=== PATIENT | male | born 1935 | race Caucasian/White ===

== ENCOUNTER 2020-03-13 17:08 | Inpatient (IN) | payer MEDICARE, OTHER, SELFPAY ==
[2020-03-13] VITALS (23 sets, daily range): BP systolic 84–122; BP diastolic 51–64; PULSE 77–96; RESP 16–28; TEMP 35.9; O2SAT 92–100
--- NOTE | ~2020-03-13 | XR_ITS ---
EXAMINATION: XR abdomen obstructive series DATE: 03/16/2020 07:16 INDICATION: Ileus TECHNIQUE: Frontal supine and upright views of the abdomen were obtained. COMPARISON: 03/15/2020 FINDINGS: There is residual oral contrast material scattered throughout the colon extending to the rectum as we ll as within a few loops of distal ileum. There are few additional gas-filled loops of borderline dil ated small bowel in the central abdomen. No free intraperitoneal gas. Cholelithiasis. Elevation of th e right hemidiaphragm. Opacities in the left mid and lower lung zones concerning for pneumonia. Cardi omegaly. Median sternotomy wires and mediastinal surgical clips are seen, likely from prior coronary artery bypass grafting. IMPRESSION: 1. Persistent gas-filled, borderline dilated loops of small bowel the central abdomen consistent wit h persistent ileus. 2. Opacities in the left mid and lower lung zone concerning for pneumonia. 3. Cholelithiasis. 4. Cardiomegaly. Reviewed, dictated and finalized at location A. EO RETINAL SURGEON IMPRESSION: 1. Persistent gas-filled, borderline dilated loops of small bowel the central abdomen consistent with persistent ileus. 2. Opacities in the left mid and lower lung zone concerning for pneumonia. 3. Cholelithiasis. 4. Cardiomegaly.
--- NOTE | ~2020-03-13 | XR_ITS ---
EXAMINATION: XR chest 1V portable EXAM DATE: 03/15/2020 07:55 INDICATION: Shortness of breath. TECHNIQUE: Portable AP frontal chest x-ray was obtained. Comparison is made to prior examination from 03/14/2020. FINDINGS: There is moderate amount of left mid and lower lung zone acute airspace disease consistent with pneumonia. Small amount of right basilar airspace disease. No pneumothorax or pleural effusion. Cardiomediastinal silhouette is normal. Sternotomy wires are present without findings to suggest ster nal dehiscence. Disc does not extend beyond endplate margin. Feeding tube with a loop in the distal e sophagus, tip projects over left upper quadrant probably below the diaphragm level. IMPRESSION: 1. Moderate left basilar, small right pneumonia. Reviewed, dictated and finalized at location D. ARCH NEUROPSYCHOLOGIST
--- NOTE | ~2020-03-13 | XR_ITS ---
XR abdomen obstructive series DATE: 03/14/2020 12:47 INDICATION: Small bowel obstruction versus adynamic ileus secondary to pneumonia TECHNIQUE: Supine and upright AP views COMPARISON: 03/06/2020 KUB for NG tube placement FINDINGS: A nasogastric tube is present in the very proximal stomach.. Persistent small bowel dilatation is noted, with relative evacuation of the distal bowel raising conc vish for small bowel obstruction. Multiple calcified gallstones. Radiopaque bowel sutures overlie the right upper quadrant. Clips overlie the right lower quadrant and pelvis. There is patchy infiltrate in the left lower lung. Status post sternotomy. Degenerative changes of the thoracic and lumbar spine. Atherosclerotic calcifications of the abdominal aorta, renal, iliac and femoral arteries. IMPRESSION: NG tube in very proximal stomach Suspected small bowel obstruction Postoperative changes of the abdomen and pelvis Reviewed, dictated and finalized at Location A. Reviewed, dictated and finalized at location A. AR CARE TECHNICIAN
--- NOTE | ~2020-03-13 | XR_ITS ---
EXAMINATION: XR abdomen obstructive series EXAM DATE: 03/15/2020 07:55 INDICATION: Follow-up on possible small-bowel obstruction. TECHNIQUE: Frontal upright projection of the upper abdomen, frontal projection of the lower abdomen f or interpretation. Comparison is made to prior examination from 03/14/2020. FINDINGS: There is a loop, coiling of the distal aspect of the nasogastric tube at the gastroesophage al junction. The tip appears to be just below the gastroesophageal junction level. Potentially could be straightened out by retracting 20 cm and then re-advancing. Several loops of moderately distended air-filled small bowel, obstruction or ileus. There are gallsto andreia. There is right upper quadrant anastomosis material. Moderate left basilar airspace disease consi stent with pneumonia. Sternotomy wires. No evidence of free intraperitoneal gas. IMPRESSION: 1. Feeding tube with loop in distal esophagus tip probably below diaphragm level. See above. 2. Moderately distended small bowel loops, ileus versus obstruction. 3. Moderate left basilar pneumonia. Reviewed, dictated and finalized at location D. CANDY DIPPER IMPRESSION: 1. Feeding tube with loop in distal esophagus tip probably below diaphragm lev el. See above. 2. Moderately distended small bowel loops, ileus versus obstruction. 3. Moderate left basilar pneumonia.
--- NOTE | ~2020-03-13 | XR_ITS ---
XR chest 2V DATE: 03/14/2020 12:46 INDICATION: Productive cough, wheezing. TECHNIQUE: AP and lateral views COMPARISON: 12/18/2018 2 view chest 03/13/2020 CT abdomen pelvis FINDINGS: There is ed patchy infiltrate involving particularly the left mid and lower lung zones. Mil d infiltrate, atelectasis or scarring in the right mid and lower lung.. Findings suggest bilateral pn eumonia, left greater than right. No pleural effusion. No pulmonary vascular congestion. No pneumothorax. Status post sternotomy. Aortic calcification and mild tortuosity. NG tube in proximal intra-abdominal stomach following making a loop in a hiatal hernia. Status post lower anterior cervical spine surgical spine fusion. Postoperative change, right upper quadrant of abdomen. Calcified gallstones, right upper quadrant. IMPRESSION: Bilateral mid and lower lung infiltrates, much greater on the left, suggesting pneumonia Reviewed, dictated and finalized at location A. CCO SWEEPER
--- NOTE | ~2020-03-13 | CT_ITS ---
EXAMINATION: CT abdomen pelvis wo con DATE: 03/13/2020 18:52 INDICATION: Nausea, vomiting and diarrhea. TECHNIQUE: Computed tomography (CT) of the abdomen and pelvis was performed without intravenous contr ast. The dose-length product was 549.38 mGy-cm. Automated exposure control and iterative reconstructi on technique were employed. COMPARISON: CT dated 11/12/2017 FINDINGS: There is lingular and left lower lobe airspace disease, consistent with pneumonia. No signi ficant pleural or pericardial effusion. Heart size normal. There is fluid in the distal esophagus, co nsistent with reflux. The stomach and small bowel are dilated with air-fluid levels. The distal small bowel is relatively decompressed. There are surgical changes of right hemicolectomy with ileocolic a nastomosis. There are gallstones. There is atherosclerosis. There are multiple ventral hernias contai aston small bowel, although this does not appear to be site of obstruction. There is transition of bow el in the right lateral midabdomen. No free air or free fluid. The liver, spleen, pancreas, adrenal glands and kidneys are unremarkable. There are extensive renal a rterial calcifications. No lymphadenopathy. Moderate thoracic and lumbar spondylosis. Status post med skylar sternotomy for CABG. IMPRESSION: 1. Small bowel obstruction with likely transition in the lateral right mid abdomen, most likely due t o adhesions. 2: Multiple ventral hernias containing dilated small bowel, although this does not appear to be the site of obstruction. 3: Cholelithiasis. 4: Extensive atherosclerosis. Reviewed, dictated and finalized at location A. ANALYSIS SUPERVISOR IMPRESSION: 1. Small bowel obstruction with likely transition in the lateral right mid abdo men, most likely due to adhesions. 2: Multiple ventral hernias containing dilated small bowel, although this does not appear to be the site of obstruction. 3: Cholelithiasis. 4: Extensive atherosclerosis.
--- NOTE | ~2020-03-13 | XR_ITS ---
XR abdomen NG/feed tube insert INDICATION: Evaluate NG tube position. TECHNIQUE: Limited KUB perform for evaluating NG tube . COMPARISON: CT dated 03/13/2020 FINDINGS: NG tube tip in the stomach. There are dilated small bowel loops in the upper abdomen, likel y due to obstruction..There is left lower lobe airspace disease, consistent with pneumonia. IMPRESSION: 1: NG tube tip in the stomach. 2: Left basilar airspace consolidation, consistent with pneumonia. Reviewed, dictated and finalized at location A. WALKER
--- NOTE | ~2020-03-13 | XR_ITS ---
XR sm bowel follow through WS DATE: 03/15/2020 11:38 INDICATION: Nausea and vomiting, small bowel dilatation TECHNIQUE: Serial images of the abdomen were obtained after administration of 500 cc Omnipaque 350 co ntrast material through existing NG tube 8 images COMPARISON: 03/05/2020 obstructive series FINDINGS: Status post partial right colectomy at the hepatic flexure area. Contrast material reaches the colon within 90 minutes. There is mild jejunal dilatation without apparent obstruction. The more distal small bowel is of normal caliber. IMPRESSION: Mild jejunal dilatation, possibly secondary to adynamic ileus; no bowel obstruction is ev ident Status post partial right colectomy Cholelithiasis Reviewed, dictated and finalized at Location A. Reviewed, dictated and finalized at location A. AL SERVICES MANAGER IMPRESSION: Mild jejunal dilatation, possibly secondary to adynamic ileus; no b owel obstruction is evident Status post partial right colectomy Cholelithiasis
--- NOTE | 2020-03-13 17:37 | ECG_ITS ---
Measurements Intervals [place] Rate: 80 P: [place]: 0 QRS: -64 QRSD: 146 T: 27 QT: 407 QTc: 472 Interpretive Statements ECTOPIC ATRIAL RHYTHM VENTRICULAR PREMATURE COMPLEX RIGHT BUNDLE BRANCH BLOCK LEFT ANTERIOR FASCICULAR BLOCK ABNORMAL ECG Electronically Signed On 03-14-2020 7:28:19 UPHOLSTERY DEPARTMENT SUPERVISOR by Ramón Mckinney D.O.
[2020-03-13 17:44] LABS: Add Urine Microscopic? YES; Appearance Urine Clear (Clear); Bilirubin Urine Negative (Negative); Blood Urine Negative (Negative); Color Urine Amber (Yellow); Glucose Urine UA Negative (Negative); Hyaline Casts Urine 50+ /lpf; Ketones Urine Negative (Negative); Leukocyte Esterase Ur Negative LEU/UL (Negative); Mucus Urine Rare /lpf; Nitrate Urine Negative (Negative); Protein Urine 2+ mg/dL (Negative); RBC Urine 0-2 /hpf (0-2); Specific Grav Ur 1.018 (1.001-1.035); Squamous Epithelial Cell Urine Occasional /hpf (Few); WBC Urine 0-3 /hpf
[2020-03-13 17:48] LABS: Basophils Absolute Auto 0.1 K/mm3 (0.0-0.1); Basophils Percent Auto 0.4 % (0.2-1.2); Eosinophils Absolute Auto 0.1 K/mm3 (0-0.3); Eosinophils Percent Auto 0.9 % (0-4.4); Hematocrit 43.7 % (42.0-52.0); Hemoglobin 15.3 g/dL (14.0-18.0); Immature Granulocyte Absolute 0.04 K/mm3 (0.00-0.031); Immature Granulocyte Percent A 0.3 % (0-0.5); Lymphocytes Absolute Auto 0.33 K/mm3 (0.9-3.2); Lymphocytes Percent Auto 2.7 % (18.3-44.2); Mean Corpuscular Volume 82.9 fl (80-100); Mean Platelet Volume 11.4 fl (7.4-10.4); Monocytes Absolute Auto 1.4 K/mm3 (0.1-0.6); Monocytes Percent Auto 11.2 % (2.6-8.5); Neutrophils Absolute Auto 10.4 K/mm3 (1.3-6.7); Neutrophils Percent Auto 84.5 % (45.5-73.1); Platelet Count Result 223 k/mm3 (150-375); Red Blood Count 5.27 M/mm3 (4.6-6.20); Red Cell Distribution Width 14.9 % (11.5-14.5); White Blood Count 12.3 K/mm3 (4.5-10.0)
[2020-03-13 17:59] LABS: Alanine Aminotransferase 18 U/L (4-50); Albumin Level 3.8 g/dL (3.5-5.1); Alkaline Phosphatase 76 U/L (38-126); Anion Gap 15 mmol/L (8-16); Aspartate Amino Transferase 25 U/L (17-59); Bilirubin,Total 0.7 mg/dL (0.2-1.3); Blood Urea Nitrogen 68 mg/dL (9-20); Calcium 8.4 mg/dL (8.4-10.2); Carbon Dioxide 32 mmol/L (22-30); Chloride 90 mmol/L (98-107); Estimated CRCL calculation 11 ml/min; Estimated Glomerular Filt Rate 14; Glucose 307 mg/dL (75-110); Lipase 23 U/L (23-300); Potassium 4.8 mmol/L (3.4-5.0); Sodium 137 mmol/L (137-145)
--- NOTE | 2020-03-13 18:29 | ED.WEAKNESS ---
HPI - Weakness General Chief complaint: Weakness Stated complaint: vomiting/weakness/diarrhea Time Seen by Provider: 03/13/20 18:28 History of Present Illness HPI Narrative: 84 yo male w/ h/o DM, HTN, CABG presents to the ED for weakness. He was reportedly awake all last night vomiting. His son nted that his abdomen was distended and he may have had a ventral hernia protruding at one point. This morning when he tried to get out of bed he was too weakn to stand. He says that he no longer feels nauseated or has any pain. He is unsure about previous surgeries. Related Data Home Medications Medication Instructions Recorded Confirmed amitriptyline 50 mg PO HS 03/13/20 aspirin [Aspir-81] 81 mg PO DAILY 03/13/20 calcium polycarbophil [FiberCon] 1,250 mg PO DAILY 03/13/20 docusate sodium [Colace] 100 mg PO BID 03/13/20 folic acid 1 mg PO DAILY 03/13/20 furosemide [Lasix] 20 mg PO DAILY 03/13/20 glucos sul [id number]-Mn 1 cap PO DAILY 03/13/20 [Glucosamine Chondroitin] lisinopril 20 mg PO DAILY 03/13/20 meclizine 25 mg PO DAILY 03/13/20 metoprolol succinate 25 mg PO DAILY 03/13/20 multivit-iron fwa-HE-N2-lycop 1 ea PO DAILY 03/13/20 [Multi For Him] pantoprazole [Protonix] 20 mg PO QAM 03/13/20 primidone 50 mg PO BID 03/13/20 simvastatin 40 mg PO HS 03/13/20 sitagliptin [Januvia] 50 mg PO DAILY 03/13/20 Allergies Allergy/AdvReac Type Severity Reaction Status Date / Time No Known Allergies Allergy Unverified 11/08/16 19:17 Review of Systems Review of Systems: All systems reviewed & are unremarkable except as noted in HPI and below Constitutional: Constitutional: Denies fever(s) Cardiovascular: Cardiovascular: Denies chest pain Respiratory: Respiratory: Denies dyspnea Gastrointestinal: Gastrointestinal: Reports diarrhea, Reports nausea and Reports vomiting Genitourinary: Genitourinary: Denies dysuria Musculoskeletal: Musculoskeletal: Denies back pain Neurologic: Reports dizziness and Reports weakness [facility] Past Medical History Medical History (Updated 03/13/20 @ 23:39 by Marcio Maya MD) Diabetes HTN (hypertension) Surgical History Surgical History (Updated 03/13/20 @ 23:37 by Marcio Maya MD) Hx of CABG Social History Social History (Updated 03/13/20 @ 23:37 by Marcio Maya MD) Living arrangements: with family Exam Const: General: no acute distress, alert and ill appearing HENMT: Mouth: Yes dry mucous membranes Resp: Effort & Inspection: normal respiratory effort Auscultation: clear to auscultation bilaterally Cardio: Rate: regular rate Rhythm: regular rhythm GI: Inspection: non-distended GI Palp: Yes Soft to palpation and No Tenderness to palpation present (GI) Skin: General skin exam: pallor Neuro: General: patient oriented x3, moves all extremities, no focal motor deficits and CN's II-XI intact bilaterally Speech: normal speech Extrem: General: normal to inspection Course Vital Signs Vital signs: Vital Signs Temperature 35.9 C L 03/13/20 17:09 Pulse Rate 77 03/13/20 17:09 Respiratory Rate 16 03/13/20 17:09 Blood Pressure 103/52 L 03/13/20 17:09 Pulse Oximetry 94 03/13/20 17:09 Temperature 35.9 C L 03/13/20 17:09 Pulse Rate 79 03/13/20 22:24 Respiratory Rate 23 H 03/13/20 22:24 Blood Pressure 84/64 L 03/13/20 22:01 Pulse Oximetry 92 03/13/20 22:24 MDM - Weakness Differential Diagnosis Differential diagnosis: Likely sepsis, dehydration and other (SBO, hernia, gastroenteritis) Medical Records Attestation: I reviewed the patient's medical records. Lab Data Attestation: I reviewed the patient's lab results. Result diagrams: 03/13/20 17:41 03/13/20 17:41 Labs: Lab Results 03/13/20 03/13/20 03/13/20 Range/Units 17:34 17:41 17:41 WBC 12.3 H (4.5-10.0) K/mm3 RBC 5.27 (4.6-6.20) M/mm3 Hgb 15.3 (14.0-18.0) g/dL Hct 43.7 (42.0-52.0) % M
[2020-03-13] MEDS: LIDOCAINE HCL 2% VISC SOLN 15 ML UDC (20:04)
--- NOTE | 2020-03-13 20:49 | PM.IMHP ---
H&P: HPI History of Present Illness Date/Time: 03/13/20 20:49 Chief Complaint: Nausea, vomiting, abdominal distension Narrative: Mireya Mccullough is a 84 year old male with past medical history of colon cancer status post partial colectomy, hypertension, GERD, type 2 diabetes, CAD status post CABG presents to the ED with complaints of nausea vomiting. Patient started developing nausea vomiting yesterday. Last bowel was couple days ago. Patient states many years ago he had colon cancer and had a hemicolectomy. He stopped having screening colonoscopies after the age of 79 as per his primary care and GI provider. Patient states he has had a 30 lb weight loss in last 6 months unintentional, son bedside stated patient is eating very little nowadays. He denies fevers or night sweats or any other B symptoms. He does not ever recall having small-bowel obstruction in the past. He does have these ventral hernias which he states can bulge and improves after emesis. In the ED: CT abdomen pelvis showed small-bowel obstruction in the right mid abdomen most likely due to adhesions, dilated small bowel and ventral hernias which does not appear to be site of obstruction. NG tube was placed to suction with bilious output. Surgery Dr. Ramsey Navarro will see patient in consultation. Patient admitted for small-bowel obstruction likely secondary to adhesions in the setting of history of colon cancer. Patient will likely need more than 2 days hospitalization and possibly need surgery. Review of Systems Review of Systems: Narrative: Constitutional: No Fever, No Chills, No Night Sweats, No Fatigue, No Malaise. Endorses a 30 lb unintentional weight loss last 6 months. ENT/Mouth: No Hearing Changes, No Ear Pain, No Nasal Congestion, No Sinus Pain, No Hoarseness, No sore throat, No Rhinorrhea, No Swallowing Difficulty Eyes: No Eye Pain, No Redness, No Vision Changes Cardiovascular: No Chest Pain, No Palpitations, No Dyspnea on Exertion, No Orthopnea, No Claudication, No Edema Respiratory: No Cough, No Sputum, No Wheezing, No Shortness of Breath Gastrointestinal: No Diarrhea, No Constipation, No Heartburn, No Hematochezia, No Melena. Endorses nausea and vomiting and abdominal discomfort. Genitourinary: No Dysuria, No Urinary Frequency, No Hematuria, No Urinary Incontinence, No Urgency Musculoskeletal: No Arthralgias, No Myalgias, No Joint Swelling, No Joint Stiffness, No Back Pain Skin: No Skin Lesions, No Pruritis, No Hair Changes Neuro: No Weakness, No Numbness, No Paresthesias, No Loss of Consciousness, No Syncope, No Dizziness, No Headache Psych: No Anxiety/Panic, No Depression, No Insomnia Heme: No Bruising, No Bleeding Lymph: No Adenopathy Endocrine: No Polyuria, No Polydipsia, No Temperature Intolerance [facility] Past Medical History Medical History CAD (coronary artery disease) Colon cancer Congestive heart failure Diabetes GERD (gastroesophageal reflux disease) HTN (hypertension) Hyperlipidemia Ventral hernia Vertigo Surgical History Surgical History History of partial colectomy Hx of CABG Family History Family History Father Cancer Mother Diabetes mellitus Sibling Heart attack Cancer Social History Social History Years smoked: 2 Smoking status: Former smoker Alcohol intake: never Substance use: never Living arrangements: with family Gender identity (if verbalized by the patient): Male Spiritual care concerns: Yes Meds Home Medications and Allergies Home Medications Medication Instructions Recorded Confirmed Type amitriptyline 50 mg PO HS 03/13/20 03/14/20 History aspirin [Aspir-81] 81 mg PO DAILY 03/13/20 03/14/20 History calcium polycarbophil [FiberCon] 650 mg PO HS
--- NOTE | 2020-03-13 21:25 | PC.NURSE ---
pt orthostatic prior to admission. Dr. Maya informed. new order received.
[2020-03-13] MEDS: SODIUM CHLORIDE 0.9% IV 1,000 ML 999 ML (21:35)
[2020-03-13] MEDS: LACTATED RINGERS 1,000 ML 100 ML IV CONT (23:42)
[2020-03-14 00:15] VITALS: O2SAT 95
--- NOTE | 2020-03-14 00:22 | ADMGEN ---
This patient, Mireya Mccullough, was admitted to Medical Room 245-01 at 0005. Patient/family oriented to hospital policies and general routines including ID bracelet, bed and alarms, visiting hours, pain management, procedures, bathroom and other care routines, personal items, smoking policy, room service/diet, and visiting hours. Information on how to activate the Rapid Response Team has been discussed. Patient/Family are encouraged to report perceived risks to care and to ask questions if they do not understand what they are told or what they should do.
[2020-03-14 00:30] VITALS: BP 121/49; PULSE 87; RESP 18; TEMP 36.3; O2SAT 95
[2020-03-14 00:31] VITALS: BP 116/53; BMI 24.0
[2020-03-14 01:18] LABS: Glucose Point of Care 219 (65-105)
[2020-03-14] MEDS: LACTATED RINGERS 1,000 ML 100 ML IV CONT ×2 (01:40→13:23)
[2020-03-14 01:47] LABS: Hemoglobin A1C 7.7 % (<5.7)
[2020-03-14 05:44] VITALS: BP 134/60; PULSE 104; RESP 16; TEMP 36.1; O2SAT 96
[2020-03-14 06:01] LABS: Blood Urea Nitrogen 75 mg/dL (9-20); Carbon Dioxide 31 mmol/L (22-30); Estimated CRCL calculation 12 ml/min; Estimated Glomerular Filt Rate 16; Glucose 189 mg/dL (75-110); Magnesium 1.8 mg/dL (1.6-2.3); Potassium 4.3 mmol/L (3.4-5.0); Sodium 139 mmol/L (137-145)
[2020-03-14 06:11] LABS: Basophils Absolute Auto 0.1 K/mm3 (0.0-0.1); Basophils Percent Auto 0.5 % (0.2-1.2); Eosinophils Percent Auto 0.1 % (0-4.4); Hematocrit 40.7 % (42.0-52.0); Hemoglobin 14.3 g/dL (14.0-18.0); Immature Granulocyte Absolute 0.02 K/mm3 (0.00-0.031); Immature Granulocyte Percent A 0.2 % (0-0.5); Lymphocytes Absolute Auto 0.58 K/mm3 (0.9-3.2); Lymphocytes Percent Auto 6.3 % (18.3-44.2); Mean Corpuscular HGB Conc 35.1 g/dl (32-36); Mean Corpuscular Hemoglobin 29.1 pg (26-34); Mean Corpuscular Volume 82.7 fl (80-100); Mean Platelet Volume 12.2 fl (7.4-10.4); Monocytes Absolute Auto 1.3 K/mm3 (0.1-0.6); Monocytes Percent Auto 14.5 % (2.6-8.5); Neutrophils Absolute Auto 7.3 K/mm3 (1.3-6.7); Neutrophils Percent Auto 78.4 % (45.5-73.1); Platelet Count Result 212 k/mm3 (150-375); Red Blood Count 4.92 M/mm3 (4.6-6.20); Red Cell Distribution Width 14.8 % (11.5-14.5); White Blood Count 9.3 K/mm3 (4.5-10.0)
[2020-03-14 06:13] LABS: Anion Gap 12 mmol/L (8-16); Chloride 96 mmol/L (98-107)
[2020-03-14 06:43] LABS: Glucose Point of Care 189 (65-105)
[2020-03-14 08:25] LABS: Glucose Point of Care 164 (65-105)
[2020-03-14] MEDS: HEPARIN SODIUM 5,000 UNITS/ML VIAL 5000 UNITS SUB-Q ×2 (08:29→22:26)
--- NOTE | 2020-03-14 08:30 | PM.CNGS ---
Assessment and Plan Assessment and plan (1) SBO (small bowel obstruction): Onset Date: ~02/2020 Code(s): K56.609 - Unspecified intestinal obstruction, unspecified as to partial versus complete obstruction Status: Acute Assessment and Plan: Difficult to tell talking to the patient when this actually started. But he had increasing pain and vomiting last evening. Exam today shows improvement after placement of NG tube in keeping in mid p.o. for the last 12 hours. At this time will plan to use conservative management including NG decompression, bowel rest, and repeat serial x-ray studies to evaluate the bowel gas pattern. If doing well on 03/15/2020 I may decide to do a small-bowel follow-through using his NG tube. Later today will consider giving him 1 dose of milk a magnesia down the NG tube in clamping it for 2 hours. Patient has 2 hernias but they do not appear to be causing the obstruction by CT. If he comes to surgery will probably try to repair these primarily with some sutures as we closed the abdomen following exploration. (2) Acute on chronic kidney failure: Onset Date: Unknown Code(s): N17.9 - Acute kidney failure, unspecified; N18.9 - Chronic kidney disease, unspecified Status: Acute Assessment and Plan: Will follow this with serial labs. Hospitalists are getting primary care records to see if he has stage 4 chronic kidney disease with a typical baseline creatinine of about 3.5. (3) Diabetes: Onset Date: Unknown Code(s): E11.9 - Type 2 diabetes mellitus without complications Status: Acute Assessment and Plan: Hospitalist's or working with the patient to follow in control his blood sugars. (4) CAD (coronary artery disease): Onset Date: Unknown Code(s): I25.10 - Atherosclerotic heart disease of [place] coronary artery without angina pectoris Status: Acute Assessment and Plan: Patient vaguely remembers that his CABG was sometime in his late 50s. He has had no recent chest pain or problems. (5) Ventral hernia: Onset Date: Unknown Code(s): K43.9 - Ventral hernia without obstruction or gangrene Status: Acute Assessment and Plan: These are most likely longstanding as his colon surgery was done when he was in his 30s. They probably developed in the year two after that. He has gained and lost weight several times. He has never had a bowel obstruction he knows of. (6) Abnormal chest xray: Onset Date: Unknown Code(s): R93.89 - Abnormal findings on diagnostic imaging of other specified body structures Status: Acute Assessment and Plan: Patient not complain of any obvious pulmonary symptoms, however in view of the current state of the pandemic it is somewhat concerning that he has a infiltrate in the left long on chest x-ray. Currently not running a fever having any significant cough. History of Present Illness Consult details Consult date: 03/14/20 Reason for consult: abdominal pain (Including nausea and vomiting) Requesting physician: Rafaela Wang, Narrative: Mr. Mireya Mccullough is a 84 year old male with past medical history of colon cancer status post partial colectomy ( he thinks he was in his 30's when he had the Rt. colectomy), hypertension, GERD, type 2 diabetes, CAD status post CABG presented last night to the [place] ED with complaints of nausea and vomiting. Patient started developing nausea and vomiting on Saturday. Last bowel was couple days ago. Patient states many years ago he had colon cancer and had a hemicolectomy. He stopped having screening colonoscopies after the age of 79 as per his primary care and GI provider. Patient states he has had a 30 lb weight loss in last 6 months which has been unintentional. His son stated to Dr. Wang that the patient is eating very little nowadays. The patient denies fevers or night sweats or any other constitutional symptoms. H
[2020-03-14] MEDS: BISACODYL 10 MG SUPPOSITORY RECTAL (11:56)
[2020-03-14 12:48] LABS: Glucose Point of Care 187 (65-105)
[2020-03-14 14:00] VITALS: BP 133/76; PULSE 78; RESP 16; TEMP 36.2; O2SAT 97
--- NOTE | 2020-03-14 15:35 | PM.IMPN ---
Progress Note: A&P Assessment and Plan (1) SBO (small bowel obstruction): Code(s): K56.609 - Unspecified intestinal obstruction, unspecified as to partial versus complete obstruction Status: Acute Assessment and Plan: Likely secondary to adhesions with history of colectomy for colon cancer for abdominal surgeries. CT scan confirmed small-bowel obstruction. Patient not had a colonoscopy since before age of 79 because he was told not to have them anymore with his age. Family is concerned about colon cancer recurrence. It is unclear at this time, however CT scan suggested adhesions as opposed to a mass causing obstruction and this would be consistent with his history of colectomy. He may need a colonoscopy down the line with this history of colon cancer. General surgery has been consulted and input is appreciated continue NG tube decompression continue IV fluids considering small-bowel follow-through study tomorrow PT/OT has been ordered to allow patient to ambulate in order to move bowels continue NPO diet Chloraseptic spray for sore throat secondary to NG (2) Acute on chronic kidney failure: Code(s): N17.9 - Acute kidney failure, unspecified; N18.9 - Chronic kidney disease, unspecified Status: Acute Assessment and Plan: Creatinine 4.0 at presentation. Received records from PCP which showed creatinine 1.8 in December 2019, suggesting patient has CKD. Likely prerenal etiology secondary to dehydration in light of a nausea and vomiting. Creatinine is 3.7 today. electrolytes are stable. Continue IV fluid resuscitation with LR Monitor renal function closely and renally dose medications. Avoid nephrotoxins consider nephrology consultation if no improvement. (3) Abnormal chest xray: Code(s): R93.89 - Abnormal findings on diagnostic imaging of other specified body structures Status: Acute Assessment and Plan: Chest x-ray upon presentation showed patchy infiltrate involving the left mid and lower lung zones as well as mild infiltrate, or possibly atelectasis of the right mid and lower lung zone. Chest x-ray findings appear to be consistent with pneumonia, however patient has no respiratory symptoms, or other signs or symptoms to suggest underlying infection. His lungs are clear to auscultation. He is maintaining adequate oxygen saturation on room air. Do not suspect aspiration given location At this time, do not feel that antibiotics are warranted based on clinical picture will plan to repeat CXR tomorrow. If progression is demonstrated, will pursue further workup. Provide incentive spirometer (4) Hypotension: Code(s): I95.9 - Hypotension, unspecified Status: Acute Assessment and Plan: blood pressures as low as 84/64 upon arrival. in the setting of SBO and decreased p.o. intake, this is felt to be most likely secondary to hypovolemia. Blood pressures have stabilized. Most recent BP was 133/76. Continue IV fluids; LR at 100 mL/hr monitor blood pressures closely his antihypertensives are on hold( lisinopril, metoprolol, Lasix) (5) Diabetes: Code(s): E11.9 - Type 2 diabetes mellitus without complications Status: Acute Assessment and Plan: A1c is 7.7. Blood sugars generally well controlled. Continue accuchecks ACHS, SSI, and hypoglycemic protocol Oral hypoglycemics on hold (6) Ventral hernia: Code(s): K43.9 - Ventral hernia without obstruction or gangrene Status: Acute Assessment and Plan: Seen on physical exam and consistent with previous abdominal incision from prior surgery. On imaging ventral hernia appears to be separate from the small-bowel obstruction. No issues at this time. Additional Plan Diet: NPO DVT prophylaxis: Heparin Code status: Full code Disposition: Inpatient medical floor for small-bowel obstruction, pending clinical course patient may need rehab
[2020-03-14] MEDS: MAGNESIUM HYDROXIDE SUSP 30 ML UDC FEED TUBE (17:11)
[2020-03-14 18:33] LABS: Glucose Point of Care 168 (65-105)
--- NOTE | 2020-03-14 19:02 | PC.NURSE ---
PT arrived by bed and 2 staff at 1854.No distress noted. NG tube clamped until 1914.
[2020-03-15] VITALS (10 sets, daily range): BP systolic 126–182; BP diastolic 47–83; PULSE 72–106; RESP 18–20; TEMP 36.2–36.4; O2SAT 94–99
[2020-03-15 02:48] LABS: Glucose Point of Care 128 (65-105)
[2020-03-15] MEDS: LACTATED RINGERS 1,000 ML 100 ML IV CONT ×2 (05:46→12:00)
[2020-03-15] MEDS: hydrALAZINE HCL 20 MG/ML VIAL 10 MG IV PUSH ×2 (05:47→10:15)
[2020-03-15 05:59] LABS: Glucose Point of Care 121 (65-105)
[2020-03-15 06:20] LABS: Basophils Percent Auto 0.4 % (0.2-1.2); Eosinophils Absolute Auto 0.1 K/mm3 (0-0.3); Eosinophils Percent Auto 0.7 % (0-4.4); Hematocrit 40.8 % (42.0-52.0); Hemoglobin 13.8 g/dL (14.0-18.0); Immature Granulocyte Absolute 0.03 K/mm3 (0.00-0.031); Immature Granulocyte Percent A 0.4 % (0-0.5); Lymphocytes Absolute Auto 0.42 K/mm3 (0.9-3.2); Mean Corpuscular HGB Conc 33.8 g/dl (32-36); Mean Corpuscular Hemoglobin 28.5 pg (26-34); Mean Corpuscular Volume 84.1 fl (80-100); Mean Platelet Volume 12.1 fl (7.4-10.4); Monocytes Absolute Auto 1.1 K/mm3 (0.1-0.6); Neutrophils Absolute Auto 6.8 K/mm3 (1.3-6.7); Neutrophils Percent Auto 80.5 % (45.5-73.1); Platelet Count Result 208 k/mm3 (150-375); Red Blood Count 4.85 M/mm3 (4.6-6.20); Red Cell Distribution Width 14.9 % (11.5-14.5); White Blood Count 8.5 K/mm3 (4.5-10.0)
[2020-03-15 06:31] LABS: Lactic Acid Reflex 0.9 mmol/L (0.7-2.1)
[2020-03-15 06:39] LABS: Prealbumin 11.4 mg/dL (17.6-36.0)
[2020-03-15 06:43] LABS: Alanine Aminotransferase 16 U/L (4-50); Albumin Level 3.5 g/dL (3.5-5.1); Alkaline Phosphatase 68 U/L (38-126); Anion Gap 10 mmol/L (8-16); Aspartate Amino Transferase 40 U/L (17-59); Blood Urea Nitrogen 70 mg/dL (9-20); Calcium 8.1 mg/dL (8.4-10.2); Carbon Dioxide 32 mmol/L (22-30); Chloride 99 mmol/L (98-107); Estimated CRCL calculation 21 ml/min; Estimated Glomerular Filt Rate 30; Glucose 129 mg/dL (75-110); Potassium 4.1 mmol/L (3.4-5.0); Sodium 141 mmol/L (137-145)
[2020-03-15 07:01] LABS: Hypochromasia 1+ (NORMAL); Platelet Estimate Adequate (Adequate)
[2020-03-15 07:02] LABS: Poikilocytosis 1+ (NORMAL); Target Cells 1+ (NORMAL)
[2020-03-15 07:03] LABS: Carcinoembryonic Antigen 2.3 ng/mL (0.0-3.0)
[2020-03-15] MEDS: PANTOPRAZOLE SODIUM IV 40 MG VIAL IV PUSH (08:37)
[2020-03-15] MEDS: HEPARIN SODIUM 5,000 UNITS/ML VIAL 5000 UNITS SUB-Q ×2 (08:37→20:57)
[2020-03-15] MEDS: METOPROLOL TARTRATE INJ 5 MG/5 ML VIAL IV PUSH ×3 (08:39→20:57)
[2020-03-15 12:05] LABS: Glucose Point of Care 166 (65-105)
--- NOTE | 2020-03-15 12:10 | PM.IMPN ---
Progress Note: A&P Assessment and Plan (1) SBO (small bowel obstruction): Onset Date: ~02/2020 Code(s): K56.609 - Unspecified intestinal obstruction, unspecified as to partial versus complete obstruction Status: Acute Assessment and Plan: Likely secondary to adhesions with history of colectomy for colon cancer for abdominal surgeries. CT scan confirmed small-bowel obstruction. Patient has not had a colonoscopy since before age of 79 because he was told not to have them anymore with his age. Family is concerned about colon cancer recurrence. It is unclear at this time, however CT scan suggested adhesions as opposed to a mass causing obstruction and this would be consistent with his history of colectomy. He may need a colonoscopy down the line with this history of colon cancer. He is passing flatus and had 2 bowel movements. Small bowel follow-through showed mild jejunal dilatation, possibly related to adynamic ileus, without bowel obstruction. General surgery has been consulted and input is appreciated NG tube was discontinued per general surgery today (03/15) and he will try clear liquids PT/OT has been ordered to allow patient to ambulate in order to move bowels Chloraseptic spray for sore throat secondary to NG (2) Pneumonia: Code(s): J18.9 - Pneumonia, unspecified organism Status: Acute Assessment and Plan: Chest x-ray upon presentation showed patchy infiltrate involving the left mid and lower lung zones as well as mild infiltrate, or possibly atelectasis of the right mid and lower lung zone. Repeat CXR today shows persistent moderate left basilar and small right PNA. He reports that he developed a cough starting yesterday. COVID-19 testing is pending and he is currently isolated. He is not hypoxic. Start empiric ceftriaxone and doxycycline Check urine legionella and pneumococcal antigens Check blood cultures Continue supportive care with incentive spirometry, add mucinex (3) Acute on chronic kidney failure: Onset Date: Unknown Code(s): N17.9 - Acute kidney failure, unspecified; N18.9 - Chronic kidney disease, unspecified Status: Acute Assessment and Plan: Creatinine 4.0 at presentation. Received records from PCP which showed creatinine 1.8 in December 2019, suggesting patient has CKD. Likely prerenal etiology secondary to dehydration in light of a nausea and vomiting. Cr continues to improve and is 2.1 today. Continue IV fluid resuscitation with LR Monitor renal function closely and renally dose medications. Avoid nephrotoxins Consider nephrology consultation if renal function does not continue to improve. (4) Hypotension: Code(s): I95.9 - Hypotension, unspecified Status: Resolved Assessment and Plan: Resolved. Blood pressures as low as 84/64 upon arrival. In the setting of SBO and decreased oral intake, this is felt to be most likely secondary to hypovolemia. Blood pressures have stabilized and were elevated this AM. Will lower the rate of IV fluids and discontinue fluids once he is able to advance diet Monitor blood pressures closely Resume metoprolol IV for now. Hydralazine is also available PRN. (5) Diabetes: Onset Date: Unknown Code(s): E11.9 - Type 2 diabetes mellitus without complications Status: Acute Assessment and Plan: A1c is 7.7. Blood sugars generally well controlled. Continue accuchecks ACHS, SSI, and hypoglycemic protocol Oral hypoglycemics on hold (6) Ventral hernia: Onset Date: Unknown Code(s): K43.9 - Ventral hernia without obstruction or gangrene Status: Acute Assessment and Plan: Seen on physical exam and consistent with previous abdominal incision from prior surgery. On imaging ventral hernia appears to be separate from the small-bowel obstruction. No issues at this time. (7) HTN (hypertension): Code(s): I1
[2020-03-15] MEDS: guaiFENesin 12 HR 600 MG TABCR PO ×2 (15:30→20:57)
[2020-03-15 17:04] LABS: Glucose Point of Care 208 (65-105)
[2020-03-15] MEDS: INSULIN ASPART (*BKC) 100 UNITS/ML SUB-Q ×2 (17:16→21:08)
[2020-03-15 18:44] LABS: SARS-CoV-2 RNA PCR Negative
--- NOTE | 2020-03-15 20:25 | PM.PNGS ---
Progress Note: A&P Assessment and Plan (1) SBO (small bowel obstruction): Onset Date: ~02/2020 Code(s): K56.609 - Unspecified intestinal obstruction, unspecified as to partial versus complete obstruction Status: Ruled-out Assessment and Plan: At this time will plan to continue conservative management including NG decompression, bowel rest, and will get a SBFT today using his NGtube . Pt knows that if this shows that the dye william not go through the bowel thatwe will recommend surgery for him. I also discussed his asymptomatic cholelithiasis with him and he approve of proceeding with a cholecystecomy at the time of surgery as long as I see no contraindication for it. Patient has 2 hernias but they do not appear to be causing the obstruction by CT. If he comes to surgery will probably try to repair these primarily with some sutures as we closed the abdomen following exploration. (2) Acute on chronic kidney failure: Onset Date: Unknown Code(s): N17.9 - Acute kidney failure, unspecified; N18.9 - Chronic kidney disease, unspecified Status: Acute Assessment and Plan: Will follow this with serial labs. Hospitalists are getting primary care records to see if he has stage 4 chronic kidney disease with a typical baseline creatinine of about 3.5. See Hospitalist note today ---- Pt basline Creatinine was 1.8. But also with hydration his kidney function is improving. (3) Diabetes: Onset Date: Unknown Code(s): E11.9 - Type 2 diabetes mellitus without complications Status: Acute Assessment and Plan: Hospitalist's are working with the patient to follow and control his blood sugars. (4) CAD (coronary artery disease): Onset Date: Unknown Code(s): I25.10 - Atherosclerotic heart disease of [place] coronary artery without angina pectoris Status: Acute Assessment and Plan: Patient vaguely remembers that his CABG was sometime in his late 50s. He has had no recent chest pain or problems. (5) Ventral hernia: Onset Date: Unknown Code(s): K43.9 - Ventral hernia without obstruction or gangrene Status: Acute Assessment and Plan: These are most likely longstanding as his colon surgery was done when he was in his 30s. They probably developed in the year two after that. He has gained and lost weight several times. He has never had a bowel obstruction that he knows of. (6) Abnormal chest xray: Onset Date: Unknown Code(s): R93.89 - Abnormal findings on diagnostic imaging of other specified body structures Status: Acute Assessment and Plan: Patient not complain of any obvious pulmonary symptoms, however in view of the current state of the pandemic it is somewhat concerning that he has a infiltrate in the left long on chest x-ray. Currently not running a fever, but over night developed a light cough. he is now PUI for Covid. Precautions in place. (7) Asymptomatic cholelithiasis: Code(s): K80.20 - Calculus of gallbladder without cholecystitis without obstruction Status: Acute Subjective Subjective Date/Time Seen: 03/15/20 08:25 Patient reports: no new complaints Interval history: Pt. lying in bed when I entered the room Denies abdominal pain. He had one spontaneous BM overnight. Review of Systems Constitutional: Constitutional: Reports as per HPI and Denies headache(s) Eyes: Eyes: Denies loss of vision and Denies eye pain Cardiovascular: Cardiovascular: Denies chest pain and Denies dyspnea Respiratory: Respiratory: Reports cough (light cough has developed.), Denies dyspnea and Denies wheezing Gastrointestinal: Gastrointestinal: Reports abdominal pain, Reports loose stools ( occasional uncontrollable small smears overnight.), Reports nausea and Reports vomiting Genitourinary: Genitourinary: Reports no additional male genitourinary complaints Musculoskeletal: Musculoskeletal: Denies back pain a
[2020-03-15] MEDS: DOXYCYCLINE HYCLATE 100 MG TABLET PO (20:57)
[2020-03-15 21:13] LABS: Glucose Point of Care 324 (65-105)
[2020-03-16] VITALS (8 sets, daily range): BP systolic 132–181; BP diastolic 50–69; PULSE 70–81; RESP 16–18; TEMP 36.2–36.6; O2SAT 93–96
[2020-03-16] MEDS: METOPROLOL TARTRATE INJ 5 MG/5 ML VIAL IV PUSH (01:41)
[2020-03-16] MEDS: hydrALAZINE HCL 20 MG/ML VIAL 10 MG IV PUSH (04:40)
[2020-03-16 06:37] LABS: Basophils Percent Auto 0.1 % (0.2-1.2); Eosinophils Percent Auto 0.3 % (0-4.4); Hematocrit 39.8 % (42.0-52.0); Hemoglobin 13.5 g/dL (14.0-18.0); Immature Granulocyte Absolute 0.08 K/mm3 (0.00-0.031); Immature Granulocyte Percent A 0.7 % (0-0.5); Lymphocytes Absolute Auto 0.65 K/mm3 (0.9-3.2); Lymphocytes Percent Auto 5.3 % (18.3-44.2); Mean Corpuscular HGB Conc 33.9 g/dl (32-36); Mean Corpuscular Hemoglobin 28.2 pg (26-34); Mean Corpuscular Volume 83.1 fl (80-100); Mean Platelet Volume 12.2 fl (7.4-10.4); Monocytes Absolute Auto 1.1 K/mm3 (0.1-0.6); Neutrophils Absolute Auto 10.4 K/mm3 (1.3-6.7); Neutrophils Percent Auto 84.6 % (45.5-73.1); Platelet Count Result 257 k/mm3 (150-375); Red Blood Count 4.79 M/mm3 (4.6-6.20); Red Cell Distribution Width 14.8 % (11.5-14.5); White Blood Count 12.3 K/mm3 (4.5-10.0)
[2020-03-16 07:26] LABS: Anion Gap 10 mmol/L (8-16); Blood Urea Nitrogen 61 mg/dL (9-20); Calcium 8.5 mg/dL (8.4-10.2); Carbon Dioxide 31 mmol/L (22-30); Chloride 99 mmol/L (98-107); Estimated CRCL calculation 23 ml/min; Estimated Glomerular Filt Rate 34; Glucose 143 mg/dL (75-110); Magnesium 2.1 mg/dL (1.6-2.3); Potassium 3.4 mmol/L (3.4-5.0); Sodium 140 mmol/L (137-145)
[2020-03-16 08:15] LABS: Glucose Point of Care 168 (65-105)
[2020-03-16] MEDS: HEPARIN SODIUM 5,000 UNITS/ML VIAL 5000 UNITS SUB-Q ×2 (09:08→20:15)
[2020-03-16] MEDS: lisinopriL 20 MG TABLET PO (09:08)
[2020-03-16] MEDS: METOPROLOL SUCCINATE EXT REL 25 MG TABCR PO (09:08)
[2020-03-16] MEDS: guaiFENesin 12 HR 600 MG TABCR PO ×2 (09:08→20:16)
[2020-03-16] MEDS: FUROSEMIDE 20 MG TABLET PO (09:08)
[2020-03-16] MEDS: ASPIRIN 81 MG ENTERIC TABLET PO (09:08)
[2020-03-16] MEDS: DOXYCYCLINE HYCLATE 100 MG TABLET PO ×2 (09:08→20:16)
[2020-03-16] MEDS: PRIMIDONE 50 MG TABLET PO ×2 (09:08→20:16)
[2020-03-16] MEDS: PANTOPRAZOLE SODIUM IV 40 MG VIAL IV PUSH (09:09)
--- NOTE | 2020-03-16 12:05 | PM.IMPN ---
Progress Note: A&P Assessment and Plan (1) SBO (small bowel obstruction): Onset Date: ~02/2020 Code(s): K56.609 - Unspecified intestinal obstruction, unspecified as to partial versus complete obstruction Status: Ruled-out Assessment and Plan: Likely secondary to adhesions with history of colectomy for colon cancer for abdominal surgeries. CT scan confirmed small-bowel obstruction. Patient has not had a colonoscopy since before age of 79 because he was told not to have them anymore with his age. Family is concerned about colon cancer recurrence. It is unclear at this time, however CT scan suggested adhesions as opposed to a mass causing obstruction and this would be consistent with his history of colectomy. He may need a colonoscopy down the line with this history of colon cancer. NG tube was removed 03/15. He is tolerating his diet well, passing gas, and having bowel movements. Abdominal plain films show ileus. Bowels are moving and he is tolerating PO intake well. General surgery has been consulted and input is appreciated PT/OT has been ordered to allow patient to ambulate in order to move bowels (2) Pneumonia: Code(s): J18.9 - Pneumonia, unspecified organism Status: Acute Assessment and Plan: Chest x-ray upon presentation showed patchy infiltrate involving the left mid and lower lung zones as well as mild infiltrate, or possibly atelectasis of the right mid and lower lung zone. Repeat CXR 03/15 shows persistent moderate left basilar and small right PNA. He reports that he developed a cough starting 03/14. COVID-19 testing was negative. Empiric ceftriaxone and doxycycline were initiated 03/15 Urine legionella and pneumococcal antigens ordered and pending Blood cultures ordered and pending Continue supportive care with incentive spirometry and mucinex (3) Acute on chronic kidney failure: Onset Date: Unknown Code(s): N17.9 - Acute kidney failure, unspecified; N18.9 - Chronic kidney disease, unspecified Status: Acute Assessment and Plan: Creatinine 4.0 at presentation. Received records from PCP which showed creatinine 1.8 in December 2019, suggesting patient has CKD. Likely prerenal etiology secondary to dehydration in light of a nausea and vomiting. Cr continues to improve and is 1.9 today which is close to his baseline. Monitor renal function closely and renally dose medications. Avoid nephrotoxins (4) Hypotension: Code(s): I95.9 - Hypotension, unspecified Status: Resolved Assessment and Plan: Resolved. Blood pressures as low as 84/64 upon arrival. In the setting of SBO and decreased oral intake, this is felt to be most likely secondary to hypovolemia. Blood pressures have stabilized and were elevated this AM. Monitor blood pressures closely (5) Diabetes: Onset Date: Unknown Code(s): E11.9 - Type 2 diabetes mellitus without complications Status: Acute Assessment and Plan: A1c is 7.7. Blood sugars generally well controlled. Most recent blood sugar was 168. Continue accuchecks ACHS, SSI, and hypoglycemic protocol Oral hypoglycemics on hold (6) Ventral hernia: Onset Date: Unknown Code(s): K43.9 - Ventral hernia without obstruction or gangrene Status: Acute Assessment and Plan: Seen on physical exam and consistent with previous abdominal incision from prior surgery. On imaging ventral hernia appears to be separate from the small-bowel obstruction. No issues at this time. Management per general surgery (7) HTN (hypertension): Code(s): I10 - Essential (primary) hypertension Status: Chronic Assessment and Plan: The patient had hypotension initially which has resolved with IV fluid hydration. BP was elevated this morning. IV fluids discontinued 03/15 Metoprolol and lisinopril were resumed today 03/16 (8) COVID-19 rule
[2020-03-16 12:22] LABS: Glucose Point of Care 367 (65-105)
[2020-03-16] MEDS: INSULIN ASPART (*BKC) 100 UNITS/ML SUB-Q ×3 (13:46→20:17)
--- NOTE | 2020-03-16 16:05 | PM.PNGS ---
Progress Note: A&P Assessment and Plan (1) SBO (small bowel obstruction): Onset Date: ~02/2020 Code(s): K56.609 - Unspecified intestinal obstruction, unspecified as to partial versus complete obstruction Status: Ruled-out Assessment and Plan: SBFT showed contrast to the colon in 90 minutes. NG was removed and now on clear liquid diet. Tolerating this well but has some complaints of bloating. Moving his bowels. Abdominal films this morning show some borderline dilated loops of gas-filled small bowel, consistent with persistent ileus. We will advance him to a full liquid diet. He then can be advanced to a soft, low-residue diet as tolerated. He likely should continue a low-residue diet for about a week after discharge. (2) Acute on chronic kidney failure: Onset Date: Unknown Code(s): N17.9 - Acute kidney failure, unspecified; N18.9 - Chronic kidney disease, unspecified Status: Acute Assessment and Plan: Creatinine 4.0 on admission and now down to 1.9. He has evidence of CKD, therefore this was likely an acute injury on chronic diseas. Continue to monitor labs. Management per Hospitalist. (3) Diabetes: Onset Date: Unknown Code(s): E11.9 - Type 2 diabetes mellitus without complications Status: Acute Assessment and Plan: Management per Hospitalist. (4) CAD (coronary artery disease): Onset Date: Unknown Code(s): I25.10 - Atherosclerotic heart disease of [place] coronary artery without angina pectoris Status: Acute (5) Ventral hernia: Onset Date: Unknown Code(s): K43.9 - Ventral hernia without obstruction or gangrene Status: Acute Assessment and Plan: These are most likely longstanding as his colon surgery was done when he was in his 30s. He has gained and lost weight several times. He has never had a bowel obstruction that he knows of. No indication for surgery at this time and not the cause of his obstruction. (6) Abnormal chest xray: Onset Date: Unknown Code(s): R93.89 - Abnormal findings on diagnostic imaging of other specified body structures Status: Acute Assessment and Plan: Left lower lung infiltrate on chest x-ray. Receiving empiric antibiotic therapy per Hospitalist. COVID negative. (7) Asymptomatic cholelithiasis: Code(s): K80.20 - Calculus of gallbladder without cholecystitis without obstruction Status: Acute Additional Plan Discussed plan of care with Dr. Navarro. Subjective Subjective Date/Time Seen: 03/16/20 15:35 Patient reports: no new complaints, feels better, tolerating liquids well, voiding w/o difficulty, flatus and bowel movement Interval history: Patient seen this afternoon and reports feeling well. Denies any abdominal pain, nausea, or vomiting. Does feel somewhat bloated still today. Reports flatus and 3 BMs since the SBFT yesterday. Per the tech, the patient had a liquid BM this morning. He has been walking the halls today. No other complaints at this time. Review of Systems Review of Systems: All systems reviewed & are unremarkable except as noted in HPI and below Constitutional: Constitutional: Reports as per HPI Exam Const: General: cooperative, no acute distress, alert and awake Orientation/consciousness: patient oriented x3 GI: Inspection: non-distended, scar (Vertical midline scar from previous right hemicolectomy.) and other (rounded abdomen) GI Palp: Yes Soft to palpation, No Tenderness to palpation present (GI), No Guarding due to palpation present (GI) and No Rebound tenderness present Auscultation: Hypoactive bowel sounds present Skin: General skin exam: normal color and no rashes or lesions noted Neuro: General: no focal motor deficits Extrem: General: no calf tenderness and no edema Psych: Appearance: grossly normal and well kempt Mental Status: mental status grossly normal Speech and movement: Normal speech and movement present Atti
[2020-03-16 17:27] LABS: Glucose Point of Care 247 (65-105)
[2020-03-16] MEDS: SIMVASTATIN 20 MG TABLET 40 MG PO (20:16)
[2020-03-16 20:42] LABS: Glucose Point of Care 235 (65-105)
[2020-03-17 06:00] VITALS: BP 130/83; PULSE 73; RESP 18; TEMP 36.8; O2SAT 95
[2020-03-17 07:02] LABS: Basophils Percent Auto 0.3 % (0.2-1.2); Eosinophils Absolute Auto 0.2 K/mm3 (0-0.3); Eosinophils Percent Auto 1.8 % (0-4.4); Hemoglobin 12.7 g/dL (14.0-18.0); Immature Granulocyte Absolute 0.07 K/mm3 (0.00-0.031); Immature Granulocyte Percent A 0.8 % (0-0.5); Lymphocytes Absolute Auto 0.49 K/mm3 (0.9-3.2); Lymphocytes Percent Auto 5.4 % (18.3-44.2); Mean Corpuscular HGB Conc 34.3 g/dl (32-36); Mean Corpuscular Hemoglobin 28.2 pg (26-34); Mean Platelet Volume 12.2 fl (7.4-10.4); Monocytes Percent Auto 11.3 % (2.6-8.5); Neutrophils Absolute Auto 7.4 K/mm3 (1.3-6.7); Neutrophils Percent Auto 80.4 % (45.5-73.1); Platelet Count Result 201 k/mm3 (150-375); Red Blood Count 4.51 M/mm3 (4.6-6.20); Red Cell Distribution Width 14.4 % (11.5-14.5); White Blood Count 9.1 K/mm3 (4.5-10.0)
[2020-03-17 07:26] LABS: Anion Gap 8 mmol/L (8-16); Blood Urea Nitrogen 54 mg/dL (9-20); Calcium 8.1 mg/dL (8.4-10.2); Carbon Dioxide 29 mmol/L (22-30); Chloride 96 mmol/L (98-107); Estimated CRCL calculation 29 ml/min; Estimated Glomerular Filt Rate 44; Glucose 138 mg/dL (75-110); Magnesium 1.8 mg/dL (1.6-2.3); Potassium 3.2 mmol/L (3.4-5.0); Sodium 133 mmol/L (137-145)
[2020-03-17 08:00] VITALS: PULSE 70; RESP 18; O2SAT 95
[2020-03-17 08:11] LABS: Glucose Point of Care 142 (65-105)
[2020-03-17 08:50] VITALS: PULSE 70
[2020-03-17] MEDS: ASPIRIN 81 MG ENTERIC TABLET PO (08:50)
[2020-03-17] MEDS: METOPROLOL SUCCINATE EXT REL 25 MG TABCR PO (08:50)
[2020-03-17] MEDS: PRIMIDONE 50 MG TABLET PO ×2 (08:50→20:57)
[2020-03-17] MEDS: DOXYCYCLINE HYCLATE 100 MG TABLET PO ×2 (08:50→20:57)
[2020-03-17] MEDS: FUROSEMIDE 20 MG TABLET PO (08:50)
[2020-03-17] MEDS: lisinopriL 20 MG TABLET PO (08:50)
[2020-03-17] MEDS: guaiFENesin 12 HR 600 MG TABCR PO ×2 (08:50→20:56)
[2020-03-17] MEDS: HEPARIN SODIUM 5,000 UNITS/ML VIAL 5000 UNITS SUB-Q ×2 (08:51→20:57)
[2020-03-17] MEDS: PANTOPRAZOLE SODIUM IV 40 MG VIAL IV PUSH (08:51)
--- NOTE | 2020-03-17 11:37 | P.DS_ITS ---
DS: Discharge Diagnosis Discharge Diagnosis (1) SBO (small bowel obstruction): Onset Date: ~02/2020 Code(s): K56.609 - Unspecified intestinal obstruction, unspecified as to partial versus complete obstruction Status: Ruled-out Assessment and Plan: Likely secondary to adhesions with history of colectomy for colon cancer for abdominal surgeries. CT scan confirmed small-bowel obstruction. Patient has not had a colonoscopy since before age of 79 because he was told not to have them anymore with his age. Family is concerned about colon cancer recurrence. It is unclear at this time, however CT scan suggested adhesions as opposed to a mass causing obstruction and this would be consistent with his history of colectomy. He may need a colonoscopy down the line with this history of colon cancer. NG tube was removed 03/15. He is tolerating his diet well, passing gas, and having bowel movements. Abdominal plain films show ileus. Bowels are moving and he is tolerating PO intake well. * General surgery has been consulted and input is appreciated * PT/OT has been ordered to allow patient to ambulate in order to move bowels (2) Pneumonia: Code(s): J18.9 - Pneumonia, unspecified organism Status: Acute Assessment and Plan: Chest x-ray upon presentation showed patchy infiltrate involving the left mid and lower lung zones as well as mild infiltrate, or possibly atelectasis of the right mid and lower lung zone. Repeat CXR 03/15 shows persistent moderate left basilar and small right PNA. He reports that he developed a cough starting 03/14. COVID-19 testing was negative. * Empiric ceftriaxone and doxycycline were initiated 03/15 * Urine legionella and pneumococcal antigens ordered and pending * Blood cultures ordered and pending * Continue supportive care with incentive spirometry and mucinex (3) Acute on chronic kidney failure: Onset Date: Unknown Code(s): N17.9 - Acute kidney failure, unspecified; N18.9 - Chronic kidney disease, unspecified Status: Acute Assessment and Plan: Creatinine 4.0 at presentation. Received records from PCP which showed creatinine 1.8 in December 2019, suggesting patient has CKD. Likely prerenal etiology secondary to dehydration in light of a nausea and vomiting. Cr co ntinues to improve and is 1.9 today which is close to his baseline. * Monitor renal function closely and renally dose medications. Avoid nephrotoxins (4) Hypotension: Code(s): I95.9 - Hypotension, unspecified Status: Resolved Assessment and Plan: Resolved. Blood pressures as low as 84/64 upon arrival. In the setting of SBO and decreased oral intake, this is felt to be most likely secondary to hypovolemia. Blood pressures have stabilized and were elevated this AM. * Monitor blood pressures closely (5) Diabetes: Onset Date: Unknown Code(s): E11.9 - Type 2 diabetes mellitus without complications Status: Acute Assessment and Plan: A1c is 7.7. Blood sugars generally well controlled. Most recent blood sugar was 168. * Continue accuchecks ACHS, SSI, and hypoglycemic protocol * Oral hypoglycemics on hold (6) Ventral hernia: Onset Date: Unknown Code(s): K43.9 - Ventral hernia without obstruction or gangrene Status: Acute Assessment and Plan: Seen on physical exam and consistent with previous abdominal incision from prior surgery. On imaging ventral hernia appears to be separate from the small-bowel obstruction. No issues at this time. * [place]
--- NOTE | 2020-03-17 11:39 | PM.PNGS ---
Progress Note: A&P Assessment and Plan (1) SBO (small bowel obstruction): Onset Date: ~02/2020 Code(s): K56.609 - Unspecified intestinal obstruction, unspecified as to partial versus complete obstruction Status: Ruled-out Assessment and Plan: SBFT showed contrast to the colon in 90 minutes. NG was removed and diet has slowly been advanced. Continues to tolerate his diet well and bowels continue to move. Okay from a surgical standpoint to discharge the patient when okay with other services. Would recommend the patient continue a low-fiber diet for 1 week after discharge. (2) Acute on chronic kidney failure: Onset Date: Unknown Code(s): N17.9 - Acute kidney failure, unspecified; N18.9 - Chronic kidney disease, unspecified Status: Acute (3) Diabetes: Onset Date: Unknown Code(s): E11.9 - Type 2 diabetes mellitus without complications Status: Acute Assessment and Plan: Management per Hospitalist. (4) CAD (coronary artery disease): Onset Date: Unknown Code(s): I25.10 - Atherosclerotic heart disease of [place] coronary artery without angina pectoris Status: Acute (5) Ventral hernia: Onset Date: Unknown Code(s): K43.9 - Ventral hernia without obstruction or gangrene Status: Acute Assessment and Plan: These are most likely longstanding as his colon surgery was done when he was in his 30s. He has gained and lost weight several times. He has never had a bowel obstruction that he knows of. No indication for surgery at this time and not the cause of his obstruction. (6) Abnormal chest xray: Onset Date: Unknown Code(s): R93.89 - Abnormal findings on diagnostic imaging of other specified body structures Status: Acute Assessment and Plan: Left lower lung infiltrate on chest x-ray. Receiving empiric antibiotic therapy per Hospitalist. COVID negative. (7) Asymptomatic cholelithiasis: Code(s): K80.20 - Calculus of gallbladder without cholecystitis without obstruction Status: Acute Additional Plan Discussed plan of care with Dr. Navarro. Subjective Subjective Date/Time Seen: 03/17/20 11:00 Patient reports: no new complaints, feels better, tolerating liquids well, flatus and bowel movement Interval history: Patient seen this morning. No complaints of abdominal pain, nausea, vomiting, or bloating. He reports flatus and multiple BMs through the night and into this morning. No other complaints at this time. Review of Systems Review of Systems: All systems reviewed & are unremarkable except as noted in HPI and below Exam Const: General: no acute distress, alert and awake Orientation/consciousness: patient oriented x3 Resp: Effort & Inspection: normal respiratory effort Auscultation: clear to auscultation bilaterally Cardio: Rate: regular rate Rhythm: regular rhythm GI: Inspection: non-distended and other (rounded abdomen) GI Palp: Yes Soft to palpation, No Tenderness to palpation present (GI), No Guarding due to palpation present (GI), Yes Hernia present (soft reducible ventral hernias) and No Rebound tenderness present Auscultation: normal bowel sounds Skin: General skin exam: normal color and no rashes or lesions noted Neuro: General: patient oriented x3 and no focal motor deficits Extrem: General: normal to inspection, no calf tenderness and no edema Psych: Appearance: grossly normal and well kempt Mental Status: mental status grossly normal Speech and movement: Normal speech and movement present Attitude: cooperative Insight: Good insight present (Psych) Judgement: Good judgement present (Psych) Objective Data Vital Signs Vital Signs: Vital Signs - 24 hr 03/16/20 14:00 03/16/20 22:00 03/17/20 06:00 Temperature 97.8 F 97.1 F L 98.2 F Pulse Rate 75 77 73 Respiratory Rate 18 18 18 Blood Pressure 132/50 L 159/55 H 130/83 Pulse Oximetry 94 96 95 03/17/20 08:00
[2020-03-17 12:07] LABS: Glucose Point of Care 382 (65-105)
[2020-03-17] MEDS: POTASSIUM CHLORIDE 20 MEQ TABLET 40 MEQ PO (12:10)
[2020-03-17] MEDS: INSULIN ASPART (*BKC) 100 UNITS/ML SUB-Q (12:48)
[2020-03-17 14:00] VITALS: BP 133/81; PULSE 81; RESP 16; TEMP 37.1; O2SAT 93
[2020-03-17 15:53] LABS: Anion Gap 8 mmol/L (8-16); Blood Urea Nitrogen 51 mg/dL (9-20); Carbon Dioxide 30 mmol/L (22-30); Chloride 91 mmol/L (98-107); Estimated CRCL calculation 28 ml/min; Estimated Glomerular Filt Rate 41; Glucose 255 mg/dL (75-110); Potassium 3.7 mmol/L (3.4-5.0); Sodium 129 mmol/L (137-145)
--- NOTE | 2020-03-17 16:37 | PM.IMPN ---
Progress Note: A&P Assessment and Plan (1) SBO (small bowel obstruction): Onset Date: ~02/2020 Code(s): K56.609 - Unspecified intestinal obstruction, unspecified as to partial versus complete obstruction Status: Ruled-out Assessment and Plan: STABLE. Not acute. Persistent ileus. Likely secondary to adhesions with history of colectomy for colon cancer for abdominal surgeries. CT scan confirmed small-bowel obstruction. Recommend colonoscopy after discharge on outpatient basis. CEA test in process. Family is concerned about colon cancer recurrence. CT scan suggested adhesions as opposed to a mass causing obstruction and this would be consistent with his history of colectomy. NG tube was removed 03/15. tolerating his diet well, passing gas, and having bowel movements. Abdominal plain films show ileus. General surgery has been consulted and input is appreciated PT/OT has been ordered to allow patient to ambulate in order to move bowels yesterday's Abd Xray: residual oral contrast material scattered throughout the colon extending to the rectum as well as within a few loops of distal ileum. There are few additional gas-filled loops of borderline dilated small bowel in the central abdomen. No free intraperitoneal gas. IMPRESSION: 1. Persistent gas-filled, borderline dilated loops of small bowel the central abdomen consistent with persistent ileus. 2. Opacities in the left mid and lower lung zone concerning for pneumonia. (2) Pneumonia: Code(s): J18.9 - Pneumonia, unspecified organism Status: Acute Assessment and Plan: Chest x-ray upon presentation showed patchy infiltrate involving the left mid and lower lung zones as well as mild infiltrate, or possibly atelectasis of the right mid and lower lung zone. Repeat CXR 03/15 shows persistent moderate left basilar and small right PNA. He reports that he developed a cough starting 03/14. COVID-19 testing was negative. Empiric ceftriaxone and doxycycline were initiated 03/15, and continued today. Blood cultures no growth Continue supportive care with incentive spirometry and mucinex yesterday's Xray: IMPRESSION: 2. Opacities in the left mid and lower lung zone concerning for pneumonia. (3) Acute on chronic kidney failure: Onset Date: Unknown Code(s): N17.9 - Acute kidney failure, unspecified; N18.9 - Chronic kidney disease, unspecified Status: Acute Assessment and Plan: Creatinine 4.0 at presentation. Received records from PCP which showed creatinine 1.8 in December 2019, suggesting patient has CKD stage 3. 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 Saleh. Likely secondary to dehydration in light of a nausea and vomiting. Cr continues to improve and is 1.9 today which is close to his baseline. Monitor renal function closely and renally dose medications. Avoid nephrotoxins new acute Hyponatremia today. Consulted Crusher Plant Operator (4) Hypotension: Code(s): I95.9 - Hypotension, unspecified Status: Resolved Assessment and Plan: Resolved. Blood pressures as low as 84/64 upon arrival. In the setting of SBO and decreased oral intake, this is felt to be most likely secondary to hypovolemia/dehydration. Blood pressures have stabilized with IVFs Monitor blood pressures closely (5) Diabetes: Onset Date: Unknown Code(s): E11.9 - Type 2 diabetes mellitus without complications Status: Acute Assessment and Plan: A1c is 7.7. Blood sugars well controlled intially until diet advanced, now >200. Most recent 382. Tolerating Diabetic low fiber diet today. Continue accuchecks ACHS, SSI changed from low to moderate dosing, and hypoglycemic protocol Januvia / Oral hypoglycemics restarted. (6) Ventral hernia: Onset Date: Unknown Code(s): K43.9 - Ventral hernia without obstruction or gangrene Status: Acute Assessment and Plan: Seen on physical
[2020-03-17] MEDS: DOCUSATE SODIUM 100 MG CAPSULE PO (17:17)
[2020-03-17] MEDS: SODIUM CHLORIDE 0.9% IV 500 ML 250 ML IV CONT (17:18)
[2020-03-17 17:41] LABS: Glucose Point of Care 220 (65-105)
[2020-03-17] MEDS: AMITRIPTYLINE HCL 25 MG TABLET 50 MG PO ×2 (20:56→20:57)
[2020-03-17] MEDS: SIMVASTATIN 20 MG TABLET 40 MG PO (20:57)
[2020-03-17 21:42] LABS: Glucose Point of Care 191 (65-105)
[2020-03-17 22:00] VITALS: BP 150/54; PULSE 70; RESP 18; TEMP 36.7; O2SAT 93
[2020-03-18 06:00] VITALS: BP 165/52; PULSE 96; RESP 18; TEMP 36.7; O2SAT 93
[2020-03-18 07:22] LABS: Alanine Aminotransferase 20 U/L (4-50); Albumin Level 3.2 g/dL (3.5-5.1); Alkaline Phosphatase 77 U/L (38-126); Anion Gap 7 mmol/L (8-16); Aspartate Amino Transferase 29 U/L (17-59); Bilirubin,Total 0.6 mg/dL (0.2-1.3); Blood Urea Nitrogen 45 mg/dL (9-20); Calcium 8.3 mg/dL (8.4-10.2); Carbon Dioxide 30 mmol/L (22-30); Chloride 96 mmol/L (98-107); Estimated CRCL calculation 31 ml/min; Estimated Glomerular Filt Rate 48; Glucose 153 mg/dL (75-110); Potassium 3.6 mmol/L (3.4-5.0); Sodium 133 mmol/L (137-145)
[2020-03-18 07:28] LABS: Hematocrit 36.8 % (42.0-52.0); Hemoglobin 12.7 g/dL (14.0-18.0); Mean Corpuscular HGB Conc 34.5 g/dl (32-36); Mean Corpuscular Hemoglobin 28.7 pg (26-34); Mean Corpuscular Volume 83.1 fl (80-100); Platelet Count Result 204 k/mm3 (150-375); Red Blood Count 4.43 M/mm3 (4.6-6.20); Red Cell Distribution Width 14.4 % (11.5-14.5); White Blood Count 8.5 K/mm3 (4.5-10.0)
[2020-03-18 09:01] LABS: Glucose Point of Care 155 (65-105)
[2020-03-18] MEDS: MECLIZINE HCL 25 MG TABLET PO (09:15)
[2020-03-18] MEDS: ASPIRIN 81 MG ENTERIC TABLET PO (09:32)
[2020-03-18] MEDS: HEPARIN SODIUM 5,000 UNITS/ML VIAL 5000 UNITS SUB-Q ×2 (09:32→20:40)
[2020-03-18 09:33] VITALS: PULSE 96
[2020-03-18] MEDS: MULTIVITAMINS THERAPEUTIC TAB (*BKC) 1 TABLET PO (09:33)
[2020-03-18] MEDS: METOPROLOL SUCCINATE EXT REL 25 MG TABCR PO (09:33)
[2020-03-18] MEDS: FOLIC ACID 1 MG TABLET PO (09:33)
[2020-03-18] MEDS: lisinopriL 20 MG TABLET PO (09:34)
[2020-03-18] MEDS: PRIMIDONE 50 MG TABLET PO ×2 (09:34→20:39)
[2020-03-18] MEDS: guaiFENesin 12 HR 600 MG TABCR PO ×2 (09:34→20:39)
[2020-03-18] MEDS: PANTOPRAZOLE SOD SESQUIHYDRATE 20 MG TAB PO (09:34)
[2020-03-18] MEDS: DOXYCYCLINE HYCLATE 100 MG TABLET PO ×2 (09:34→20:39)
[2020-03-18] MEDS: FUROSEMIDE 20 MG TABLET PO (09:34)
[2020-03-18] MEDS: DOCUSATE SODIUM 100 MG CAPSULE PO ×2 (09:34→18:16)
[2020-03-18] MEDS: POTASSIUM CHLORIDE 10 MEQ TABLET.ER PO (10:59)
[2020-03-18] MEDS: INSULIN ASPART (*BKC) 100 UNITS/ML SUB-Q ×2 (12:23→18:16)
--- NOTE | 2020-03-18 13:25 | PM.CNNEP ---
Assessment and Plan Assessment and plan (1) Hyponatremia: Code(s): E87.1 - Hypo-osmolality and hyponatremia Status: Acute Assessment and Plan: suspect multifactorial: - pneumonia (any lung pathology can make one susceptible to low sodium) - possible pre-renal factors from volume depletion - hyperglycemia for completeness - check cortisol, TSH, SPE, UPE, and serum/urine osmolality sodium relatively stable at this time follow repeat sodium levels (2) FELICIA (acute kidney injury): Code(s): N17.9 - Acute kidney failure, unspecified Status: Acute Assessment and Plan: resolving and appears to be doing better than baseline likely due to pre-renal factors from his previous nausea/vomiting worsened by his hypotension continue supportive therapy (3) Stage 3b chronic kidney disease: Code(s): N18.32 - Chronic kidney disease, stage 3b Status: Acute Assessment and Plan: based on his baseline creatinine of 1.8mg/dl presumably due to his hypertension, diabetes, and age-related change follows with Dr. Iftikhar Saleh (4) Pneumonia: Code(s): J18.9 - Pneumonia, unspecified organism Status: Acute Assessment and Plan: as noted by imaging on antibiotic therapy culture results noted (5) HTN (hypertension): Code(s): I10 - Essential (primary) hypertension Status: Chronic Assessment and Plan: doing better at this time previously with hypotension follow trend of hemodynamics (6) SBO (small bowel obstruction): Onset Date: ~02/2020 Code(s): K56.609 - Unspecified intestinal obstruction, unspecified as to partial versus complete obstruction Status: Ruled-out Assessment and Plan: thought to be secondary to adhesions CT scan imaging of abdomen noted Surgery following (7) Diabetes: Onset Date: Unknown Code(s): E11.9 - Type 2 diabetes mellitus without complications Status: Acute Assessment and Plan: follow accucheks on SSI Will continue to follow. History of Present Illness Reason for Consult Consult date: 03/18/20 Reason for consult: acute renal failure and hyponatremia Chief Complaint Chief complaint: SBO History of Present Illness Narrative: The patient is a 84 year old male with an extensive past medical history as outlined below who presented to [facility] ER with complaints of nausea vomiting. Patient started developing nausea and vomiting the day before admission and has been somewhat persistent since that time. The patient mentions that many years ago he had colon cancer and had a hemicolectomy but stopped having screening colonoscopies after the age of 79 as per his primary care and GI provider. More concerning is that along with his nausea and vomiting, he reports Patient states he has had an inintential 30 lb weight loss in last 6 months. He states he really does not eat much in general but his oral intake has been completely absent for the last 24 - 48 hours given his nausea and vomiting. He denies any fevers, night sweats, chills, palpitations, or headaches. He does have ventral hernias which he states can bulge out but seems to improve after emesis. Workup and evaluation emergency room demonstrated significant hypotension but he was otherwise afebrile and in no acute distress. Routine blood test demonstrated acute kidney injury on top of his baseline kidney disease but without any critical electrolyte abnormalities. His CBC was only remarkable for a mildly elevated white blood cell count. Given his symptoms of nausea and vomiting, he did undergo a CT scan of abdomen pelvis that showed a small-bowel obstruction thought to be secondary to adhesions as well as dilated small bowel in his ventral hernia which did not appear to be a site of obstruction. Given these findings and his constellation of symptoms, he was admit
[2020-03-18 14:00] VITALS: BP 148/65; PULSE 66; RESP 16; TEMP 36.3; O2SAT 97
[2020-03-18 15:06] LABS: Creatinine Urine 76.1 mg/dL; Total Protein Urine Random 40 mg/dL; Ur Ttl Prot Creatinine Ratio 0.53 mg/mg (0-0.20)
[2020-03-18 15:07] LABS: Sodium Urine Random 31 meq/L
[2020-03-18 15:38] LABS: Glucose Point of Care 273 (65-105)
--- NOTE | 2020-03-18 16:27 | PM.IMPN ---
Progress Note: A&P Assessment and Plan (1) SBO (small bowel obstruction): Onset Date: ~02/2020 Code(s): K56.609 - Unspecified intestinal obstruction, unspecified as to partial versus complete obstruction Status: Ruled-out Assessment and Plan: STABLE. Not acute. Persistent ileus but having stools. Likely secondary to adhesions with history of colectomy for colon cancer for abdominal surgeries. CT scan confirmed small-bowel obstruction. Recommend colonoscopy after discharge on outpatient basis. CEA test in process as Family is concerned about colon cancer recurrence. CT scan suggested adhesions as opposed to a mass causing obstruction and this would be consistent with his history of colectomy. NG tube was removed 03/15. tolerating his diet well, passing gas, and having bowel movements. Abdominal plain films show ileus. General surgery has been consulted and input is appreciated PT/OT has been ordered to allow patient to ambulate in order to move bowels 03/16 Abd Xray: residual oral contrast material scattered throughout the colon extending to the rectum as well as within a few loops of distal ileum. There are few additional gas-filled loops of borderline dilated small bowel in the central abdomen. No free intraperitoneal gas. IMPRESSION: 1. Persistent gas-filled, borderline dilated loops of small bowel the central abdomen consistent with persistent ileus. 2. Opacities in the left mid and lower lung zone concerning for pneumonia. (2) Pneumonia: Code(s): J18.9 - Pneumonia, unspecified organism Status: Acute Assessment and Plan: IMPROVED. Chest x-ray upon presentation showed patchy infiltrate involving the left mid and lower lung zones as well as mild infiltrate, or possibly atelectasis of the right mid and lower lung zone. Repeat CXR 03/15 shows persistent moderate left basilar and small right PNA. He reports that he developed a cough starting 03/14. COVID-19 testing was negative. Empiric ceftriaxone and doxycycline were initiated 03/15, and continued today. Blood cultures no growth Continue supportive care with incentive spirometry and mucinex yesterday's Xray: IMPRESSION: 2. Opacities in the left mid and lower lung zone concerning for pneumonia. (3) Acute on chronic kidney failure: Onset Date: Unknown Code(s): N17.9 - Acute kidney failure, unspecified; N18.9 - Chronic kidney disease, unspecified Status: Acute Assessment and Plan: MUCH improved. Stable. Chronic. Creatinine 4.0 at admission, now 1.4 Received records from PCP which showed creatinine 1.8 in December 2019, suggesting patient has CKD stage 3. 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 Saleh. Likely secondary to dehydration in light of a nausea and vomiting. Renally dose medications. Avoid nephrotoxins new acute Hyponatremia - Consulted Metal Inspector (4) Hypotension: Code(s): I95.9 - Hypotension, unspecified Status: Resolved Assessment and Plan: Resolved. Blood pressures as low as 84/64 upon arrival. In the setting of SBO and decreased oral intake, this is felt to be most likely secondary to hypovolemia/dehydration. Blood pressures have stabilized with IVFs Monitor blood pressures closely , today BPs 133/81- 165/52 (5) Diabetes: Onset Date: Unknown Code(s): E11.9 - Type 2 diabetes mellitus without complications Status: Acute Assessment and Plan: A1c is 7.7. Blood sugars well controlled intially until diet advanced, then glucose jumped to 200-300s, restarted Januvia and increased SSI from low to moderate SSI. Glucose was 382 yesterday to 153 today. Tolerating Diabetic low fiber diet today. Continue accuchecks ACHS, SSI changed from low to moderate dosing, and hypoglycemic protocol Januvia / Oral hypoglycemics restarted. (6) Ventral hernia: Onset Date: Unknown Code(s): K43.9 - Ventral hernia without obstruction
[2020-03-18 17:49] LABS: Glucose Point of Care 230 (65-105)
[2020-03-18] MEDS: SIMVASTATIN 20 MG TABLET 40 MG PO (20:39)
[2020-03-18 20:48] LABS: Glucose Point of Care 282 (65-105)
[2020-03-18 21:46] VITALS: BP 148/53; PULSE 78; RESP 20; TEMP 37.2; O2SAT 92
[2020-03-19 05:33] VITALS: BP 141/74; PULSE 77; RESP 16; TEMP 36.9; O2SAT 90
[2020-03-19 06:52] LABS: Anion Gap 4 mmol/L (8-16); Blood Urea Nitrogen 44 mg/dL (9-20); Calcium 8.3 mg/dL (8.4-10.2); Carbon Dioxide 33 mmol/L (22-30); Chloride 96 mmol/L (98-107); Estimated CRCL calculation 28 ml/min; Estimated Glomerular Filt Rate 41; Glucose 134 mg/dL (75-110); Potassium 3.9 mmol/L (3.4-5.0); Sodium 133 mmol/L (137-145)
[2020-03-19 08:00] VITALS: PULSE 72; RESP 16; O2SAT 90
[2020-03-19 08:14] VITALS: PULSE 72
[2020-03-19] MEDS: METOPROLOL SUCCINATE EXT REL 25 MG TABCR PO (08:14)
[2020-03-19] MEDS: FUROSEMIDE 20 MG TABLET PO (08:14)
[2020-03-19] MEDS: PRIMIDONE 50 MG TABLET PO (08:14)
[2020-03-19] MEDS: ASPIRIN 81 MG ENTERIC TABLET PO (08:14)
[2020-03-19] MEDS: guaiFENesin 12 HR 600 MG TABCR PO (08:14)
[2020-03-19] MEDS: MULTIVITAMINS THERAPEUTIC TAB (*BKC) 1 TABLET PO (08:14)
[2020-03-19] MEDS: MECLIZINE HCL 25 MG TABLET PO (08:15)
[2020-03-19] MEDS: lisinopriL 20 MG TABLET PO (08:15)
[2020-03-19] MEDS: DOCUSATE SODIUM 100 MG CAPSULE PO (08:15)
[2020-03-19] MEDS: HEPARIN SODIUM 5,000 UNITS/ML VIAL 5000 UNITS SUB-Q (08:15)
[2020-03-19] MEDS: FOLIC ACID 1 MG TABLET PO (08:15)
[2020-03-19] MEDS: DOXYCYCLINE HYCLATE 100 MG TABLET PO (08:15)
[2020-03-19] MEDS: POTASSIUM CHLORIDE 10 MEQ TABLET.ER PO (08:15)
[2020-03-19] MEDS: PANTOPRAZOLE SOD SESQUIHYDRATE 20 MG TAB PO (08:16)
[2020-03-19 08:30] LABS: Glucose Point of Care 131 (65-105)
[2020-03-19 11:19] LABS: Thyroid Stimulating Hormone Reflex 0.386 uIU/mL (0.465-4.68)
--- NOTE | 2020-03-19 11:19 | P.PNNP_ITS ---
Progress Note: A&P Assessment and Plan (1) Hyponatremia: Code(s): E87.1 - Hypo-osmolality and hyponatremia Status: Acute Assessment and Plan: * relatively stable * suspect multifactorial: - pneumonia (any lung pathology can make one susceptible to low sodium) - possible pre-renal factors from volume depletion - hyperglycemia * follow-up on SPE, UPE, and serum/urine osmolality * TSH/T4 and cortisol level noted -- consider recheck cortisol versus checking cosyntropic stimulation test * sodium relatively stable at this time * follow repeat sodium levels (2) FELICIA (acute kidney injury): Code(s): N17.9 - Acute kidney failure, unspecified Status: Acute Assessment and Plan: * resolving and appears to be doing better than baseline * likely due to pre-renal factors from his previous nausea/vomiting worsened by his hypotension * continue supportive therapy (3) Stage 3b chronic kidney disease: Code(s): N18.32 - Chronic kidney disease, stage 3b Status: Acute Assessment and Plan: * based on his baseline creatinine of 1.8mg/dl * presumably due to his hypertension, diabetes, and age-related change * follows with Dr. Iftikhar Saleh (4) Pneumonia: Code(s): J18.9 - Pneumonia, unspecified organism Status: Acute Assessment and Plan: * as noted by imaging * on antibiotic therapy * culture results noted (5) HTN (hypertension): Code(s): I10 - Essential (primary) hypertension Status: Chronic Assessment and Plan: * doing better at this time * previously with hypotension * follow trend of hemodynamics (6) SBO (small bowel obstruction): Onset Date: ~02/2020 Code(s): K56.609 - Unspecified intestinal obstruction, unspecified as to partial versus complete obstruction Status: Ruled-out Assessment and Plan: * thought to be secondary to adhesions * CT scan imaging of abdomen noted * Surgery following (7) Diabetes: Onset Date: Unknown Code(s): E11.9 - Type 2 diabetes mellitus without complications Status: Acute Assessment and Plan: * follow accucheks * on SSI Will continue to follow -- not opposed to discharge from renal perspective; he can follow-up with his primary melt room operator regarding his CKD and hyponatremia (althought I suspect this will resolve on its own). Subjective Date/time seen: 03/19/20 11:19 Appears to be doing reasonably well; tolerating oral intake with no significant nausea or vomiting; no other acute events overnight or earlier this AM; no apparent distress noted. Exam Narrative: Exam Narrative: General: Elderly male in NAD Heart: normal S1 and S2; no rub Lungs: clear to auscultation Abdomen: soft, nontender, nondistended, positive bowel sounds Extremities: no cyanosis or clubbing; no edema Skin: warm and dry Objective Data Vital Signs Vital Signs: Vital Signs Temp Pulse Resp BP Pulse Ox 03/19/20 08:14 72 03/19/20 08:00 72 16 90 03/19/20 05:33 36.9 C 77 16 141/74 H 90 03/18/20 21:46 37.2 C 78 20 148/53 H 92 03/18/20 14:00 36.3 C L 66 16 148/65 H 97 Intake/Output Intake/Output: Intake & Output 03/16/20 03/17/20 03/18/20 03/19/20 23:59 23:59 23:59 23:59 Intake Total 1755 1380 1670 220
--- NOTE | 2020-03-19 11:19 | PM.PNNEP ---
Progress Note: A&P Assessment and Plan (1) Hyponatremia: Code(s): E87.1 - Hypo-osmolality and hyponatremia Status: Acute Assessment and Plan: relatively stable suspect multifactorial: - pneumonia (any lung pathology can make one susceptible to low sodium) - possible pre-renal factors from volume depletion - hyperglycemia follow-up on SPE, UPE, and serum/urine osmolality TSH/T4 and cortisol level noted -- consider recheck cortisol versus checking cosyntropic stimulation test sodium relatively stable at this time follow repeat sodium levels (2) FELICIA (acute kidney injury): Code(s): N17.9 - Acute kidney failure, unspecified Status: Acute Assessment and Plan: resolving and appears to be doing better than baseline likely due to pre-renal factors from his previous nausea/vomiting worsened by his hypotension continue supportive therapy (3) Stage 3b chronic kidney disease: Code(s): N18.32 - Chronic kidney disease, stage 3b Status: Acute Assessment and Plan: based on his baseline creatinine of 1.8mg/dl presumably due to his hypertension, diabetes, and age-related change follows with Dr. Iftikhar Saleh (4) Pneumonia: Code(s): J18.9 - Pneumonia, unspecified organism Status: Acute Assessment and Plan: as noted by imaging on antibiotic therapy culture results noted (5) HTN (hypertension): Code(s): I10 - Essential (primary) hypertension Status: Chronic Assessment and Plan: doing better at this time previously with hypotension follow trend of hemodynamics (6) SBO (small bowel obstruction): Onset Date: ~02/2020 Code(s): K56.609 - Unspecified intestinal obstruction, unspecified as to partial versus complete obstruction Status: Ruled-out Assessment and Plan: thought to be secondary to adhesions CT scan imaging of abdomen noted Surgery following (7) Diabetes: Onset Date: Unknown Code(s): E11.9 - Type 2 diabetes mellitus without complications Status: Acute Assessment and Plan: follow accucheks on SSI Will continue to follow -- not opposed to discharge from renal perspective; he can follow-up with his primary speaker mounter regarding his CKD and hyponatremia (althought I suspect this will resolve on its own). Subjective Date/time seen: 03/19/20 11:19 Appears to be doing reasonably well; tolerating oral intake with no significant nausea or vomiting; no other acute events overnight or earlier this AM; no apparent distress noted. Exam Narrative: Exam Narrative: General: Elderly male in NAD Heart: normal S1 and S2; no rub Lungs: clear to auscultation Abdomen: soft, nontender, nondistended, positive bowel sounds Extremities: no cyanosis or clubbing; no edema Skin: warm and dry Objective Data Vital Signs Vital Signs: Vital Signs Temp Pulse Resp BP Pulse Ox 03/19/20 08:14 72 03/19/20 08:00 72 16 90 03/19/20 05:33 36.9 C 77 16 141/74 H 90 03/18/20 21:46 37.2 C 78 20 148/53 H 92 03/18/20 14:00 36.3 C L 66 16 148/65 H 97 Intake/Output Intake/Output: Intake & Output 03/16/20 03/17/20 03/18/20 03/19/20 23:59 23:59 23:59 23:59 Intake Total 1755 1380 1670 220 Output Total 300 500 600 650 Balance 7013 356 9807 -430 Meds/Results Medications: Active Medications Generic Name Dose Route Start Last Admin Trade Name Freq PRN Reason Stop Dose Admin Acetaminophen 650 mg 03/19/20 11:18 03/19/20 12:38 Acetaminophen 325 Mg Tablet PO 650 mg Q4H PRN Administration Headache Amitriptyline HCl 50 mg 03/17/20 21:00 03/17/20 20:57 Amitriptyline Hcl 25 Mg Tablet PO 50 mg HS ROCIO Administration Aspirin 81 mg 03/16/20 09:00 03/19/20 08:14 Aspirin 81 Mg Enteric Tablet PO 81 mg DAILY ROCIO Administration Dextrose 12.5 gm 03/13/20 23:51 Dextr
--- NOTE | 2020-03-19 11:38 | PM.DS ---
DS: Admitting Diagnosis Admitting Diagnosis Admitting Diagnosis: Small bowel obstruction DS: Discharge Diagnosis Discharge Diagnosis (1) SBO (small bowel obstruction): Onset Date: ~02/2020 Code(s): K56.609 - Unspecified intestinal obstruction, unspecified as to partial versus complete obstruction Status: Ruled-out Assessment and Plan: Discharge Summary (Date of service 03/19/19): Mr. Mccullough is an 84 y.o. male with PMH significant for colon cancer s/p partial colectomy, CAD s/p CABG, HTN, hyperlipidemia, T2DM, and ventral hernia who presented to the emergency department 03/13/20 for the evaluation of nausea and vomiting x1 day. Initial workup in the emergency department included CT abd/pelvis which demonstrated small-bowel obstruction int he right mid abdomen, most likely secondary to adhesions, with dilated small bowel and ventral hernias which did not appear to be causing obstruction. FELICIA was also present on admission with Cr 4.0 at presentation with known underlying CKD stage III. NG tube was placed to suction with bilious output. Dr. Navarro with general surgery was consulted and the patient was admitted to the hospitalist service. The patient has not had a colonoscopy since before age of 79 because he was told not to have them anymore with his age. Family expressed concern regarding colon cancer recurrence in the setting of SBO. CEA was ordered and 3.0 03/17/20. Elective colonoscopy was recommended on an outpatient basis and he can have this scheduled by his PCP . General surgery managed his SBO. Small bowel follow through 03/15 demonstrated contrast reaching the colon in 90 minutes and obstruction resolved. He was passing gas and bowel movements so NG tube was removed 03/15. He tolerated his diet well with return of bowel function and resolution of pain. He had no further nausea or vomiting. He was felt stable for discharge form a general surgery standpoint. Low fiber diet was recommended for 1 week following discharge. He was also treated for pneumonia with ceftriaxone and doxycycline and tested for COVID-19 given infiltrates on CXR. COVID-19 testing was negative. Sodium did drop during his stay, likely secondary to pneumonia, pre-renal volume depletion in the setting of SBO, and hyperglycemia. He was seen by nephrology with further workup ordered which was pending at discharge. Hyponatremia improved. FELICIA resolved with IV fluids and Cr 1.6 on day of discharge. He was doing very well with no further abdominal pain, nausea, or vomiting. His cough improved. He was discharged 03/19/19 in hemodynamically stable condition. Follow-up instructions were discussed with the patient and he verbalized understanding. Please see additional diagnoses below for additional details regarding his hospital stay. (2) Pneumonia: Code(s): J18.9 - Pneumonia, unspecified organism Status: Acute Assessment and Plan: Chest x-ray upon presentation showed patchy infiltrate involving the left mid and lower lung zones as well as mild infiltrate, or possibly atelectasis of the right mid and lower lung zone. Repeat CXR 03/15 shows persistent moderate left basilar and small right PNA. He developed a cough 03/14/20. COVID-19 testing was negative. Empiric ceftriaxone and doxycycline were initiated 03/14 and he was advised to continue them for 4 days after discharge. Blood cultures were obtained and demonstrate NGTD. (3) Acute on chronic kidney failure: Onset Date: Unknown Code(s): N17.9 - Acute kidney failure, unspecified; N18.9 - Chronic kidney disease, unspecified Status: Acute Assessment and Plan: Creatinine 4.0 at presentation. Received records from PCP which showed creatinine 1.8 in December 2019, suggesting patient has CKD stage III. He follows with insert operator, Dr. Saleh at [facility]. Likely prerenal etiology secondary to dehydration in light of a nausea and vomiting. Cr continues to improve and is 1.6 t
[2020-03-19 12:18] LABS: Glucose Point of Care 234 (65-105)
[2020-03-19] MEDS: ACETAMINOPHEN 325 MG TABLET 650 MG PO (12:38)
[2020-03-19] MEDS: INSULIN ASPART (*BKC) 100 UNITS/ML SUB-Q (12:38)
[2020-03-19 12:56] LABS: Total Triiodothyronine (T3) 0.81 NG/ML (0.97-1.69)
[2020-03-19 14:00] VITALS: BP 146/57; PULSE 69; RESP 16; TEMP 36.1; O2SAT 98
--- NOTE | 2020-03-19 15:23 | PC.NURSE ---
Notified [facility] and patients son that he was being discharged today.
[2020-03-21 04:11] LABS: Osmolality, Urine 449 mOsm/kg (50-1200)
[2020-03-21 15:29] LABS: Pneumococcal Antigen Urine Not Detected (Not Detected)
[2020-03-22 09:01] LABS: Legionella pneumophila Ag Ur Not Detected (Not Detected)
[2020-03-22 13:36] LABS: Kappa\\Lambda Light Chains 0.89 (0.26-1.65); Lambda Light Chain 47.4 mg/L (5.7-26.3)
[2020-03-23 05:23] LABS: Albumin 2.9 g/dL (3.8-4.8); Alpha 1 Globulin 0.4 g/dL (0.2-0.3); Alpha 2 Globulin 0.9 g/dL (0.5-0.9); Beta 1 Globulin 0.3 g/dL (0.4-0.6); Gamma Globulin 0.8 g/dL (0.8-1.7); Protein, Total 5.5 g/dL (6.1-8.1)
[2020-03-23 22:58] LABS: Chloride Rand Ur 26 mmol/L (32-290); Chloride/Creatinine Rand Ur 35 (23-275); Creatinine Random Urine 75 mg/dL (20-320)
[2020-03-24 01:22] LABS: Creatinine, Random Urine 76 mg/dL (20-320); Total Protein/Creatinine Ratio 605 mg/g creat (22-128)
== END 2020-03-19 15:45 | disposition home health service (06) | DRG 193 ==
LOC: ANHED 20:53 → ANH2MED 23:39 → ANH3MEDSUR 03-15 06:59 → ANH2MED 03-23 13:28 → ANH3MEDSUR 03-23 13:28
PROVIDERS: Internal Medicine Nephrology; Nurse Practitioner; Physician Assistant; Surgery; Admitting Provider Student in an Organized Health Care Education/Training Program; Emergency Provider Emergency Medicine; Visit Provider Physician Assistant
DX: J18.9 Pneumonia, unspecified organism (principal); R57.1 Hypovolemic shock; K56.609 Unspecified intestinal obstruction, unspecified as to partial versus complete obstruction; N17.9 Acute kidney failure, unspecified; I13.0 Hypertensive heart and chronic kidney disease with heart failure and stage 1 through stage 4 chronic kidney disease, or unspecified chronic kidney disease; E87.1 Hypo-osmolality and hyponatremia; K43.9 Ventral hernia without obstruction or gangrene; I50.9 Heart failure, unspecified; N18.32 Chronic kidney disease, stage 3b; E11.22 Type 2 diabetes mellitus with diabetic chronic kidney disease; Z20.822 Contact with and (suspected) exposure to COVID-19; K80.20 Calculus of gallbladder without cholecystitis without obstruction; I25.10 Atherosclerotic heart disease of native coronary artery without angina pectoris
CPT/HCPCS: 36415; 51701; 71045; 71046; 74019; 74176; 74250; 80048; 80053; 81001; 81050; 82378; 82436; 82533; 82570; 83036; 83605; 83690; 83735; 83883; 83930; 83935; 84134; 84155; 84156; 84165; 84166; 84300; 84439; 84443; 84480; 85025; 85027; 87040; 87449; 87635; 87899; 93005; 97110; 97116; 97161; 97165; 97530; 97535; 99285; A9270; C9113; C9803; J0360; J0696; J1644; J1815; J7030; J7040; J7120; U0003

== ENCOUNTER 2020-03-24 11:20 | Outpatient (NON) | payer MEDICARE, OTHER, SELFPAY ==
[2020-03-24 12:11] LABS: Alanine Aminotransferase 30 U/L (4-50); Albumin Level 3.1 g/dL (3.5-5.1); Alkaline Phosphatase 91 U/L (38-126); Anion Gap 4 mmol/L (8-16); Aspartate Amino Transferase 33 U/L (17-59); Bilirubin,Total 0.6 mg/dL (0.2-1.3); Blood Urea Nitrogen 43 mg/dL (9-20); Calcium 8.7 mg/dL (8.4-10.2); Carbon Dioxide 33 mmol/L (22-30); Chloride 94 mmol/L (98-107); Estimated Glomerular Filt Rate 36; Glucose 121 mg/dL (75-110); Potassium 4.2 mmol/L (3.4-5.0); Sodium 131 mmol/L (137-145)
== END 2020-03-24 11:21 ==
LOC: HOME HLTH 11:25
PROVIDERS: Visit Provider Physician Assistant
DX: N18.32 Chronic kidney disease, stage 3b (principal); E87.1 Hypo-osmolality and hyponatremia
CPT/HCPCS: 80053

== ENCOUNTER 2020-03-30 21:31 | Inpatient (IN) | payer MEDICARE, OTHER, SELFPAY ==
--- NOTE | ~2020-03-30 | XR_ITS ---
EXAMINATION: XR chest 1V portable INDICATION: Repositioned endotracheal tube TECHNIQUE: Portable AP chest at 0307 hours COMPARISON: 03/30/2020 FINDINGS: The repositioned endotracheal tube ends 2.4 cm above the pam. The nasogastric tube is in the stomach. A right internal jugular catheter ends with its tip in the right atrium. Patchy opaciti es of the lung bases and left midlung zone persist with slight improvement. There is stable cardiomeg rashel. No pneumothorax or pleural effusion is identified. Surgical changes are noted in the lower cervi vonnie spine. IMPRESSION: 1. Repositioned endotracheal tube in adequate position. 2. Patchy opacities of the lung bases and left midlung zone with slight improvement, consistent with atelectasis versus pneumonia. Reviewed, dictated and finalized at location A. RMINATOR HELPER TERMITE IMPRESSION: 1. Repositioned endotracheal tube in adequate position. 2. Patchy opacities of the lung bases and left midlung zone with slight improve ment, consistent with atelectasis versus pneumonia.
--- NOTE | ~2020-03-30 | XR_ITS ---
EXAMINATION: XR chest 1V portable INDICATION: Respiratory failure TECHNIQUE: Portable AP chest at 0541 hours COMPARISON: 03/31/2020 FINDINGS: The endotracheal tube ends approximately 3 cm above the pam. The nasogastric tube is in the stomach. A right internal jugular central venous catheter ends with its tip in the distal superio r vena cava. Patchy bilateral airspace opacities persist with interval improvement in the left lung b ase. There is no pleural effusion or pneumothorax the heart size is normal. Median sternotomy wires a nd mediastinal surgical clips are seen, likely from prior coronary artery bypass grafting. Surgical c hanges are noted in the lower cervical spine. Subtle right upper quadrant calcifications may reflect cholelithiasis. IMPRESSION: 1. Diffuse lung disease with interval improvement in the left lung base, consistent with pneumonia an d/or pulmonary edema and/or acute respiratory distress syndrome (ARDS). Reviewed, dictated and finalized at location A. ERMAKER INDUSTRIAL BOILERS IMPRESSION: 1. Diffuse lung disease with interval improvement in the left lung base, consis tent with pneumonia and/or pulmonary edema and/or acute respiratory distress sy ndrome (ARDS).
--- NOTE | ~2020-03-30 | XR_ITS ---
EXAMINATION: XR chest 1V portable DATE: 03/31/2020 12:16 INDICATION: Central line adjustment. TECHNIQUE: A single frontal view of the chest was obtained. COMPARISON: Chest single view at 2:54 AM, CT abdomen and pelvis 03/13/2020 FINDINGS: Again seen is mild elevation of right hemidiaphragm. There are mild airspace opacities in t he mid and lower lung zones. No pleural effusion or pneumothorax. The heart size is normal. Median st ernotomy wires and mediastinal surgical clips are seen, likely from prior coronary artery bypass cornell ting. A right internal jugular central venous catheter is seen with tip in the superior vena cava. Th e endotracheal tube tip is 4.7 cm above the pam. The nasogastric tube tip is in the distal stomach . There are old healed right rib fractures. IMPRESSION: 1. Central line tip in superior vena cava. 2. Airspace opacities in the mid and lower lung zones with improvement, consistent with atelectasis v ersus pneumonia. Reviewed, dictated and finalized at location A. OPERATOR IMPRESSION: 1. Central line tip in superior vena cava. 2. Airspace opacities in the mid and lower lung zones with improvement, consist ent with atelectasis versus pneumonia.
--- NOTE | ~2020-03-30 | CT_ITS ---
EXAMINATION: CT brain wo con DATE: 03/30/2020 23:39 INDICATION: Unresponsive TECHNIQUE: Computed tomography (CT) of the head was performed without intravenous contrast. Sagittal and coronal reconstructions were performed. The mA was adjusted according to patient size. Iterative reconstruction technique was employed. The dose-length product was 681.00 mGy-cm. COMPARISON: head CT dated 11/08/2016 FINDINGS: Small old lacunar infarcts at the bilateral thalami and in the central nazia. No acute intracranial he morrhage, acute infarction or abnormal extra axial fluid collection. Again seen is extensive scattere d white matter hypoattenuation consistent with chronic small vessel ischemic disease. Symmetric promi nence of the sulci and ventricles consistent with moderate age-appropriate diffuse cerebral volume lo ss. No mass/mass effect. Changes of bilateral intraocular lens replacement. Small portion of a likely endotracheal tube seen extending to the oral cavity. Mild mucosal thickening the bilateral ethmoid s inuses. Mastoid air cells and middle ear cavities are clear. Intracranial calcified cerebral atherosc lerosis is noted. IMPRESSION: 1. No acute intracranial process. 2. 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 3. Age-related changes including moderate diffuse volume loss and extensive scattered white matter hy poattenuation consistent with chronic small vessel ischemic disease. Reviewed, dictated and finalized at location A. ING MACHINE OPERATOR IMPRESSION: 1. No acute intracranial process. 2. 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 3. Age-related changes including moderate diffuse volume loss and extensive sca ttered white matter hypoattenuation consistent with chronic small vessel ischem ic disease.
--- NOTE | ~2020-03-30 | XR_ITS ---
XR chest 1V portable 04/03/2020 06:12 Indication: Respiratory failure Procedure: AP portable chest Comparison: Comparison to multiple prior studies sequentially, with oldest reviewed study dated 03/31. Findings: Central line tip in the SVC. Status post median sternotomy. Heart size normal. Bilateral ai rspace disease with focal right perihilar consolidation. No significant effusion or pneumothorax. Impression: 1: Bilateral airspace disease with right perihilar consolidation. Differential diagnosis includes pne umonia, atelectasis and/or edema. No significant change compared with 04/02/2020. Reviewed, dictated and finalized at location A. OL RESOURCE OFFICER Impression: 1: Bilateral airspace disease with right perihilar consolidation. Differential diagnosis includes pneumonia, atelectasis and/or edema. No significant change c ompared with 04/02/2020.
--- NOTE | ~2020-03-30 | XR_ITS ---
EXAMINATION: XR chest 1V portable INDICATION: Respiratory failure, bronchoscopy TECHNIQUE: Portable AP chest at 1222 hours COMPARISON: 0541 hours FINDINGS: The endotracheal tube ends approximately 2.9 cm above the pam. The nasogastric tube is i n the stomach. A right internal jugular central venous catheter ends with its tip in the distal super ior vena cava. Patchy bilateral airspace opacities persist with interval worsening in the left lung b ase. There is no pneumothorax or pleural effusion. The cardiomediastinal silhouette is stable. Median sternotomy wires and mediastinal surgical clips are seen, likely from prior coronary artery bypass g rafting. IMPRESSION: 1. Slight increase in left basilar opacification which could reflect post procedure change. Otherwise stable examination. Reviewed, dictated and finalized at location A. DENT ENGINEER IMPRESSION: 1. Slight increase in left basilar opacification which could reflect post proce dure change. Otherwise stable examination.
--- NOTE | ~2020-03-30 | XR_ITS ---
EXAMINATION: XR chest ET placement DATE: 03/30/2020 22:55 INDICATION: Endotracheal tube placement. Central line placement. TECHNIQUE: frontal view of the chest was obtained. COMPARISON: Chest radiograph dated 03/15/2020 FINDINGS: Endotracheal tube tip extends into the proximal right mainstem bronchus. Right internal jugular centr al venous catheter with distal tip at the right atrium. Again seen are patchy airspace opacities in t he left mid and lower lung zone. Increase in patchy and bandlike opacity in the right midlung zone wi th elevation of the right hemidiaphragm. No pleural effusion or pneumothorax. Cardiomegaly. Median st ernotomy wires and mediastinal surgical clips are seen, likely from prior coronary artery bypass cornell ting. Several calcified gallstones in the right upper quadrant. IMPRESSION: 1. Endotracheal tube tip in the proximal right mainstem bronchus. Recommend withdrawal by [address] Nazia berry discussed these findings with Dr. Chatterjee at 10:55 PM. 2. Right internal jugular central venous catheter with distal tip in the right atrium. Consider withd lucas by [address] it near the superior cavoatrial junction. 3. Patchy bilateral lung disease with increase in the right midlung zone which could represent worsen ing pneumonia and/or atelectasis. Reviewed, dictated and finalized at location A. HEAD CLEANER MAINTAINER IMPRESSION: 1. Endotracheal tube tip in the proximal right mainstem bronchus. Recommend wit hdrawal by [address] Hayes discussed these findings with Dr. Chatterjee at 10: 55 PM. 2. Right internal jugular central venous catheter with distal tip in the right atrium. Consider withdrawal by [address] it near the superior cavoatrial ju nction. 3. Patchy bilateral lung disease with increase in the right midlung zone which could represent worsening pneumonia and/or atelectasis.
--- NOTE | ~2020-03-30 | XR_ITS ---
MODIFIED ESOPHAGRAM HISTORY: Witnessed choking TECHNIQUE: Modified barium esophagram was performed by speech pathologist under radiologist fluorosco pic guidance. This was recorded on tape. The exam was reviewed on 04/03/2020 11:22 CLOSING AGENT. The DAP for this procedure was 0.4 Gycm2. Fluoroscopy time is 2.9. FINDINGS: Lateral projection of the cervical spine demonstrates normal alignment. There is penetrat ion with aspiration of thin liquids. There is penetration with moderately thick liquids. Otherwise, t here is unremarkable swallowing function. IMPRESSION: 1: Penetration with aspiration with thin liquids. 2: Please refer to speech pathologist report for additional detail. Reviewed, dictated and finalized at location A. ING AGENT
--- NOTE | ~2020-03-30 | XR_ITS ---
XR chest 1V portable 04/02/2020 05:57 Indication: Respiratory failure Procedure: AP portable chest Comparison: Comparison to multiple prior studies sequentially, with oldest reviewed study dated 03/31. Findings: Endotracheal tube tip 3.6 cm above the pam. NG tube in the stomach. Right IJ central paige e tip in the SVC. There are diffuse bilateral infiltrates which have developed since prior study. No significant effusion or pneumothorax. Impression: 1: Interval development of diffuse bilateral airspace disease which may represent edema or pneumonia. Reviewed, dictated and finalized at location A. STANT GROCERY STORE MANAGER Impression: 1: Interval development of diffuse bilateral airspace disease which may represe nt edema or pneumonia.
[2020-03-30 21:35] VITALS: BP 143/67; PULSE 92; RESP 13; TEMP 35.9; O2SAT 92
--- NOTE | 2020-03-30 21:35 | PC.NURSE ---
Pt to ed from home via [facility] ems with c/o cardiac arrest after choking on sausage. per ems report We were called to the home by family for a witnessed choking episode. Per family report - pt was eating dinner, began to choke, attempted to vomit into the trash can, and was unsuccessful. Pt then went unresponsive. we started attempting the Heimlich maneuver. Approximate down time per family 5-10 minutes. Upon EMS arrival to home pt family was actively attempting Heimlich maneuver. Placed pt on the monitor - asystole, no pulse present, no breathing, so they began ACLS protocol. We placed a samaria on the pt, established an 18g left forearm and gave 1 round of epi. We used a glidescope to place ETT (26 @teeth), and got color change. During placement we saw food dislodge and go into the lung. we got rosc with strong pulses (wide complex), gave a dose of amiodarone 150mg, and ns 1L wide open. Upon arrival to ed samaria was still in place, but paused, and being bagged by the EMS. vs -92hr, 13rr, 143/67(89). Lovell placed, Las and ABG drawn. EKG completed. 2136 no pulse present - code blue called ... see code sheet.
--- NOTE | 2020-03-30 21:40 | PC.NURSE ---
2140 Pulse present, coded ended 214 pulse still present, rn priming dopamine 5mcg/kg 214 Dopamine 5mcg/kg started via pump vs 118hr, 18rr, 100, 211/134 2146 small pieces of meat removed x 3 (placed in specimen cup) 2147 NS 2nd bag started 214 EKG completed [address] Bangura at bedside attempting Central Line ( 3 attempts non-successful) 2150 samaria removed [address] Maya at bedside to attempt Central Line 2210 Left Ac iv Infiltrated - dopamine and fluids paused 2212 20g rt hand established - dopamine and fluids restarted [address] Maya placed Central Line 2231 Dr. Bangura Verbal order to start Levophed 2240 Xray at bedside 2244 Levophed Started 5mg/min - 9.4ml/hr
--- NOTE | 2020-03-30 21:46 | ECG_ITS ---
Measurements Intervals Wolsey Rate: 114 P: ID: 0 QRS: -79 QRSD: 163 T: 0 QT: 352 QTc: 486 Interpretive Statements ECTOPIC ATRIAL TACHYCARDIA VENTRICULAR PREMATURE COMPLEXES IVCD, WITH RIGHT BUNDLE BRANCH BLOCK AND LEFT BUNDLE BRANCH BLOCK MORPHOLOGY INFERIOR INFARCT OR DUE TO LBBB BASELINE WANDER- I, III ABNORMAL ECG Electronically Signed On 03-31-2020 7:12:40 IRRIGATION DISTRICT MANAGER by Ramón Mckinney D.O.
[2020-03-30 21:53] LABS: Alveolar/Arterial O2 Gradient 202.6 mmHg; Base Excess ABG -3.4 mEq/l (+/-2.0); Carboxyhemoglobin 0.5 % THb (0-2.0); Fractional Inspired Oxygen 100 %; HCO3 ABG 20.3 mEq/l (22.0-26.0); Methemoglobin ABG 0.4 %THb (0-1.5); Oxygen Content ABG 19.5 %vol (16.0-22.0); Oxygen Saturation ABG 99.9 % (95.0-100.0); Oxyhemoglobin 98.1 % THb (90.0-100.0); PCO2 ABG 32.5 mmHg (35.0-45.0); PO2 ABG 477.9 mmHg (80.0-100.0); PO2 FiO2 Ratio Arterial Blood 4.78 %; Total Hemoglobin 13.2 g/dL (12.0-18.0); pH ABG 7.413 (7.350-7.450)
[2020-03-30 21:54] LABS: Device AMBU BAG; Site Drawn RIGHT FEMORAL
[2020-03-30 21:55] LABS: Basophils Absolute Auto 0.1 K/mm3 (0.0-0.1); Basophils Percent Auto 0.7 % (0.2-1.2); Eosinophils Absolute Auto 0.3 K/mm3 (0-0.3); Eosinophils Percent Auto 2.2 % (0-4.4); Hematocrit 36.9 % (42.0-52.0); Hemoglobin 12.7 g/dL (14.0-18.0); Immature Granulocyte Absolute 0.24 K/mm3 (0.00-0.031); Lymphocytes Absolute Auto 2.57 K/mm3 (0.9-3.2); Lymphocytes Percent Auto 21.1 % (18.3-44.2); Mean Corpuscular HGB Conc 34.4 g/dl (32-36); Mean Corpuscular Hemoglobin 28.7 pg (26-34); Mean Corpuscular Volume 83.3 fl (80-100); Mean Platelet Volume 11.5 fl (7.4-10.4); Monocytes Percent Auto 8.4 % (2.6-8.5); Neutrophils Percent Auto 65.6 % (45.5-73.1); Platelet Count Result 286 k/mm3 (150-375); Red Blood Count 4.43 M/mm3 (4.6-6.20); Red Cell Distribution Width 14.8 % (11.5-14.5); White Blood Count 12.2 K/mm3 (4.5-10.0)
[2020-03-30 22:02] LABS: Alanine Aminotransferase 32 U/L (4-50); Albumin Level 3.3 g/dL (3.5-5.1); Alkaline Phosphatase 107 U/L (38-126); Anion Gap 7 mmol/L (8-16); Aspartate Amino Transferase 59 U/L (17-59); Bilirubin,Total 0.4 mg/dL (0.2-1.3); Blood Urea Nitrogen 29 mg/dL (9-20); Calcium 8.2 mg/dL (8.4-10.2); Carbon Dioxide 22 mmol/L (22-30); Chloride 99 mmol/L (98-107); Cholesterol 97 mg/dL (0-200); Estimated CRCL calculation 26 ml/min; Estimated Glomerular Filt Rate 36; Glucose 223 mg/dL (75-110); HDL Direct 30 mg/dL; Potassium 4.7 mmol/L (3.4-5.0); Sodium 128 mmol/L (137-145); Triglycerides 145 mg/dL (<150)
[2020-03-30 22:08] LABS: Prothrombin Time 13.7 Seconds (11.1-14.7)
[2020-03-30 22:13] LABS: LDL Cholesterol Direct 41 mg/dL; Partial Thromboplastin Time 29.5 SECONDS (22.3-36.8)
[2020-03-30 22:14] VITALS: PULSE 82; O2SAT 100
[2020-03-30 22:16] LABS: Troponin I 0.012 ng/mL (0.000-0.034)
--- NOTE | 2020-03-30 22:51 | PC.NURSE ---
2251-Levophed increase to 10mcg/min - 18.8ml/hr - rn double check Ashley Little
[2020-03-30 23:03] VITALS: PULSE 70; RESP 15; O2SAT 97
[2020-03-30 23:04] VITALS: BP 90/40; PULSE 74; RESP 18; O2SAT 96
[2020-03-30 23:06] VITALS: BP 94/44; PULSE 76; RESP 16; O2SAT 96
[2020-03-31] VITALS (46 sets, daily range): BP systolic 67–133; BP diastolic 32–82; PULSE 47–75; RESP 18–32; TEMP 36.1–37.3; O2SAT 90–100; BMI 27.0
--- NOTE | 2020-03-31 | ECHO_ITS ---
Patient Info Name: Mireya Mccullough Age: 84 years : 1935 Gender: Male Ht: 64 in Wt: 157 lbs BSA: 1.81 m2 HR: 66 bpm BP: 115 / 49 mmHg Heart Rhythm: Sinus Rhythm Technical Quality: Fair Exam Date: 03/31/2020 2:41 PM Exam Location: [facility] Card Pulmonary Patient Status: Inpatient Admit Date: 03/31/2020 Staff Ordering Physician: Osvaldo Shah MD Broadcast Maintenance Engineer: Desiree Silva RDCS Attending Provider: Radha Ivy DO Exam Type: CA echo dop color flow w con Study Info Indications - cardiac arrest Complete two-dimensional, color flow and Doppler transthoracic echocardiogram is performed with contrast to opacify the left ventricle and to improve the deliniation of the left ventricle endocardial borders. Contrast/Agitated Saline Contrast/Ag. Saline: Definity Amount: 1.00 ml Summary 1. Technically difficult study with limited views. 2. Left ventricular systolic function is normal, estimated at 55-60%. 3. There is hypokinesis of the mid inferoseptum and mid anteroseptum. 4. There is mildly increased left ventricular wall thickness with sigmoid hypertrophy. 5. There is no aortic valve stenosis. 6. There is mild mitral valve regurgitation. 7. There is mild tricuspid valve regurgitation. 8. Moderate pulmonary hypertension, estimated pulmonary arterial systolic pressure is 51 mmHg. Left Ventricle Left ventricular chamber dimension is normal. Left ventricular systolic function is normal, estimated at 55-60%. There is mildly increased left ventricular wall thickness with sigmoid hypertrophy. The left ventricular diastolic function is grade III diastolic dysfunction. Technically difficult study with limited views. There is hypokinesis of the mid inferoseptum and mid anteroseptum. Right Ventricle Right ventricular chamber dimension is not well visualized. Left Atria Left atrial chamber dimension is mildly enlarged. Right Atria Right atrial chamber dimension is mildly enlarged. Aortic Valve The aortic valve is trileaflet. There is no aortic valve stenosis. There is mild aortic valve regurgitation. There is mild aortic valve calcification. Pulmonic Valve The pulmonic valve is not well visualized. Mitral Valve The mitral valve has thickened leaflets. There is mild mitral valve regurgitation. The mitral valve annulus is moderately calcified. Tricuspid Valve The tricuspid valve leaflets are not well visualized. There is mild tricuspid valve regurgitation. Moderate pulmonary hypertension, estimated pulmonary arterial systolic pressure is 51 mmHg. Pericardium/Pleural The pericardium appears normal. There is no pericardial effusion. Aorta The aortic root size at the sinus of Valsalva is normal. There is mild aortic atherosclerosis. Left Ventricular Outflow Tract Name Value Normal LVOT 2D LVOT Diameter 1.95 cm LVOT Doppler LVOT Peak Gradient 4 mmHg LVOT Mean Gradient 2 mmHg LVOT VTI 19.24 cm LVOT VTI/AV VTI Ratio 0.81
--- NOTE | 2020-03-31 00:48 | ED.GENADULT ---
HPI - General Adult General Chief complaint: Cardiac Arrest/CPR Stated complaint: cardiac arrest Time Seen by Provider: 03/30/20 21:41 Source: EMS Mode of arrival: EMS History of Present Illness HPI narrative: 84-year-old with a history of CAD, s/p CABG, CKD was brought in an ambulance from home s/p cardiac arrest. As per the EMS patient was eating dinner choked on a piece of meat and later became unresponsive. Upon EMS arrival patient was unresponsive and was in asystole. As per the EMS fagot maker was able to take piece of meat from the airway and was later intubated. CPR was initiated he also received 50 mg of amiodarone and 1 epi. Patient upon arrival to the ER still remains unresponsive intubated but had spontaneous pulse. Related Data Home Medications Medication Instructions Recorded Confirmed Glucosamine Chondroitin 2 cap PO DAILY 03/13/20 03/14/20 Januvia 50 mg PO DAILY 03/13/20 03/14/20 amitriptyline 50 mg PO HS 03/13/20 03/14/20 aspirin 81 mg PO DAILY 03/13/20 03/14/20 calcium polycarbophil [FiberCon] 650 mg PO HS 03/13/20 03/14/20 docusate sodium [Colace] 100 mg PO BID 03/13/20 03/14/20 folic acid 1 mg PO DAILY 03/13/20 03/14/20 furosemide [Lasix] 20 mg PO DAILY 03/13/20 03/14/20 lisinopril 20 mg PO DAILY 03/13/20 03/14/20 meclizine 25 mg PO DAILY 03/13/20 03/14/20 metoprolol succinate 25 mg PO DAILY 03/13/20 03/14/20 pantoprazole [Protonix] 20 mg PO QAM 03/13/20 03/14/20 primidone 50 mg PO BID 03/13/20 03/14/20 simvastatin 40 mg PO HS 03/13/20 03/14/20 Adult One Daily Multivitamin 1 tab-cap PO DAILY 03/14/20 03/14/20 Allergies Allergy/AdvReac Type Severity Reaction Status Date / Time No Known Allergies Allergy Unverified 03/14/20 00:21 Review of Systems Review of Systems: ROS unobtainable: Yes unobtainable due to medical condition PMFSH Past Medical History Medical History CAD (coronary artery disease) (Unknown) Colon cancer Congestive heart failure Diabetes (Unknown) GERD (gastroesophageal reflux disease) HTN (hypertension) Hyperlipidemia Ventral hernia (Unknown) Vertigo Surgical History Surgical History History of partial colectomy Hx of CABG Family History Family History Father Cancer Mother Diabetes mellitus Sibling Heart attack Cancer Social History Social History Years smoked: 2 Smoking status: Former smoker Alcohol intake: never Substance use: never Gender identity (if verbalized by the patient): Male Spiritual care concerns: Yes Exam Narrative: Exam Narrative: GENERAL: unresponsive . HEAD: Normocephalic, atraumatic. EYES: Pupils sluggish ENT: ET Tube in place NECK: Supple. CHEST: breath sounds heard on ventilation HEART: Regular rate and rhythm. No murmur heard. Normal peripheral pulses. ABDOMEN: Soft, ventral l hernia present. SKIN: Warm, dry, no rash. NEURO: Unresponsive. Course Course Emergency Course: Discussed in length with the family members about his clinical situation as per the POA they do not want any further intervention if heart stops. Discussed labs, CT and chest x-ray findings with family Vital Signs Vital signs: Vital Signs Temperature 35.9 C L 03/30/20 21:35 Pulse Rate 92 03/30/20 21:35 Respiratory Rate 13 03/30/20 21:35 Blood Pressure 143/67 H 03/30/20 21:35 Pulse Oximetry 92 03/30/20 21:35 Temperature 35.9 C L 03/30/20 21:35 Pulse Rate 73 03/31/20 00:20 Respiratory Rate 16 03/30/20 23:06 Blood Pressure 94/44 L 03/30/20 23:06 Pulse Oximetry 96 03/31/20 00:20 Procedures Central Line Placement Right IJ: Central Line Date: 03/31/20 Performed Emergently - Given emergent patient condition, temporal constraints may have precluded informed consent.: Yes Max. Sterile B
--- NOTE | 2020-03-31 01:17 | PC.NURSE ---
Levo decreased to 5mcg/min - rn double check Karuna, admin asst
[2020-03-31] MEDS: SODIUM CHLORIDE 0.9% IV 1,000 ML 125 ML IV CONT (01:18)
[2020-03-31 01:36] LABS: Add Urine Microscopic? YES; Appearance Urine Clear (Clear); Bacteria Urine Trace /hpf; Bilirubin Urine Negative (Negative); Blood Urine Negative (Negative); Color Urine Straw (Yellow); Glucose Urine UA Negative (Negative); Ketones Urine Negative (Negative); Leukocyte Esterase Ur Negative LEU/UL (Negative); Mucus Urine Rare /lpf; Nitrate Urine Negative (Negative); Protein Urine 1+ mg/dL (Negative); Specific Grav Ur 1.008 (1.001-1.035); Urobilinogen Urine Negative mg/dL (<2.0); WBC Urine 0-3 /hpf
--- NOTE | 2020-03-31 02:23 | PM.IMHP ---
H&P: HPI History of Present Illness Date/Time: 03/31/20 02:23 Chief Complaint: Cardiac arrest after choking on food Narrative: Mireya Mccullough is a 84 year old male with a past medical history of coronary artery disease, CHF, diabetes, GERD and hypertension who presented to the ER via EMS from home due to cardiac arrest after choking on sausage. The patient attempted to vomit but was unsuccessful. The patient went unresponsive and Heimlich maneuver was attempted. Patient was down 5-10 minutes prior to EMS arrival. When EMS arrived to the home the family was still attempting high moved maneuver. The patient was placed on property assessment monitor and found to be in asystole with no pulse or respiratory effort. ACLS protocol was be scanned in the patient was placed on Giancarlo best. The patient was given 1 round of epinephrine and ET tube was placed with glide scope with color change. During placement of ET tube EMS saw food dislodging go into the lung. In the field EMS got return of perfusing circulation with a wide complex. The patient received a dose of amiodarone and a L of fluids. On arrival to the ER the Giancarlo device was still in place but had been paused in the field. The patient was being bagged. As the patient was being settled in the ER/(approximately 5-10 minutes after arriving it was noted that is heart rate was persistently 90 with no variation) at the time of pulse was checked in the patient was found to be in PE a. He was subsequently coded a 2nd time for approximately 1 minute was given a dose of epinephrine. He had return of spontaneous circulation. He received an additional 1 L normal saline in the ER. Was obtained and demonstrated atrial fibrillation with RVR right bundle-branch block possible acute [place] in both anterior and inferior leads however much of the changes on the EKG were chronic. AFib was new. The patient was hypotensive in the ER and a by ER staff. Chest x-ray was obtained which demonstrated ET tube in the right mainstem bronchus at which time ET tube was pulled back 3 cm. The IJ was also into the right atrium and was recommended to be pulled back. The patient became hypotensive in the ER and was placed on pressor therapy with Levophed and dopamine Levophed at 5 and dopamine at 5. Once he had arrived in the ICU dopamine was discontinued in Levophed was increased to 10. The patient's blood pressures are stable. The patient is awake on the vent and is following commands. 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 After the patient's code status was discussed between the family and the ER staff. The family stated that if the patient were to code again they would not want further CPR. Review of Systems Review of Systems: ROS unobtainable: Yes unobtainable due to endotracheal tube PMFSH Past Medical History Medical History CAD (coronary artery disease) (Unknown) Colon cancer Congestive heart failure Diabetes (Unknown) GERD (gastroesophageal reflux disease) HTN (hypertension) Hyperlipidemia Ventral hernia (Unknown) Vertigo Surgical History Surgical History History of partial colectomy Hx of CABG Family History Family History Father Cancer Mother Diabetes mellitus Sibling Heart attack Cancer Social History Social History Years smoked: 2 Smoking status: Former smoker Alcohol intake: never Substance use: never Gender identity (if verbalized by the patient): Male Spiritual care concerns: Yes Meds Home Medications and Allergies Home Medications Medication Instructions Recorded Confirmed Type Glucosamine Chondroitin 2 cap PO DAILY 03/13/20 03/14/20 History Januvia 50 mg PO DAILY 03/13/20 03/14/20 History amitriptyline 50 mg
--- NOTE | 2020-03-31 03:02 | ADMGEN ---
This patient, Mireya Mccullough, was admitted to Intensive Care Unit-11 on 03/31/20 at 0215. Patient/family oriented to hospital policies and general routines including ID bracelet, bed and alarms, visiting hours, pain management, procedures, bathroom and other care routines, personal items, smoking policy, room service/diet, and visiting hours. Information on how to activate the Rapid Response Team has been discussed. Patient/Family are encouraged to report perceived risks to care and to ask questions if they do not understand what they are told or what they should do.
[2020-03-31] MEDS: FENTANYL 2,500MCG/NS250ML(*CRX 2,500 MCG/250 ML BAG IV CONT (03:31)
[2020-03-31 04:30] LABS: Hematocrit 31.7 % (42.0-52.0); Hemoglobin 10.9 g/dL (14.0-18.0); Mean Corpuscular HGB Conc 34.4 g/dl (32-36); Mean Corpuscular Hemoglobin 28.5 pg (26-34); Mean Corpuscular Volume 82.8 fl (80-100); Mean Platelet Volume 11.4 fl (7.4-10.4); Platelet Count Result 215 k/mm3 (150-375); Red Blood Count 3.83 M/mm3 (4.6-6.20); Red Cell Distribution Width 14.8 % (11.5-14.5); White Blood Count 21.5 K/mm3 (4.5-10.0)
[2020-03-31 04:43] LABS: Estimated CRCL calculation 21 ml/min; Estimated Glomerular Filt Rate 32
[2020-03-31 04:50] LABS: Alveolar/Arterial O2 Gradient 179.9 mmHg; Base Excess ABG -5.8 mEq/l (+/-2.0); Carboxyhemoglobin 0.3 % THb (0-2.0); Device VENTILATOR; Fractional Inspired Oxygen 50 %; HCO3 ABG 18.7 mEq/l (22.0-26.0); Methemoglobin ABG 0.3 %THb (0-1.5); Modified Allen's Test Unable to perform; Oxygen Content ABG 18.8 %vol (16.0-22.0); Oxygen Saturation ABG 98.7 % (95.0-100.0); Oxyhemoglobin 97.4 % THb (90.0-100.0); PCO2 ABG 33.6 mmHg (35.0-45.0); PO2 ABG 138.8 mmHg (80.0-100.0); PO2 FiO2 Ratio Arterial Blood 2.78 %; Site Drawn RIGHT RADIAL; Total Hemoglobin 13.6 g/dL (12.0-18.0); pH ABG 7.363 (7.350-7.450)
[2020-03-31 04:51] LABS: Arterial Blood Gas PEEP 5 cmH2O; Arterial Blood Gas Tidal Volume 360 ml; Arterial Blood Gas Vent Mode CMV; Arterial Blood Gas Ventilator rate 18 /MIN
[2020-03-31 05:22] LABS: Troponin I 0.445 ng/mL (0.000-0.034)
--- NOTE | 2020-03-31 09:03 | PM.CNCAR ---
Assessment and Plan Assessment and plan (1) Cardiac arrest with successful resuscitation: Code(s): I46.9 - Cardiac arrest, cause unspecified Status: Acute Assessment and Plan: Patient had cardiac arrest after choking on a sausage. His troponins are mildly elevated and peaked at 0.44. This morning he does have junctional bradycardia as her feet and no dosage dopamine. His blood pressure is stable. 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 Recommend an echocardiogram. Continue aspirin given underlying CAD. (2) Junctional bradycardia: Code(s): R00.1 - Bradycardia, unspecified Status: Acute Assessment and Plan: Agree with dopamine this time. Blood pressure stable. Avoid AV leeanna blocking agents. History of Present Illness History of Present Illness Consult date/time: Date of service 03/31/20 09:03 Requesting physician: Matt Pérez MD Consult reason: Other (Cardiac arrest) Reason For Visit: post cardiac arrest Narrative: 84-year-old patient with history of coronary artery disease, diabetes, hypertension, hyperlipidemia, right bundle-branch block. Patient was brought to the hospital because of cardiac arrest after choking on sausage. The patient attempted to vomit but was unsuccessful. The patient went unresponsive and Heimlich maneuver was attempted. Patient was down 5-10 minutes prior to EMS arrival. When EMS arrived to the home the family was still attempting high moved maneuver. The patient was placed on conveyor monitor and found to be in asystole with no pulse or respiratory effort. ACLS protocol was be scanned in the patient was placed on Giancarlo best. The patient was given 1 round of epinephrine and ET tube was placed with glide scope with color change. During placement of ET tube EMS saw food dislodging go into the lung. In the field EMS got return of perfusing circulation with a wide complex. The patient received a dose of amiodarone and a L of fluids. On arrival to the ER the Giancarlo device was still in place but had been paused in the field. The patient was being bagged. As the patient was being settled in the ER/(approximately 5-10 minutes after arriving it was noted that is heart rate was persistently 90 with no variation) at the time of pulse was checked in the patient was found to be in PE a. He was subsequently coded a 2nd time for approximately 1 minute was given a dose of epinephrine. He had return of spontaneous circulation. He received an additional 1 L normal saline in the ER. Was obtained and demonstrated atrial fibrillation with RVR right bundle-branch block possible acute [place] in both anterior and inferior leads however much of the changes on the EKG were chronic. AFib was new. The patient was hypotensive in the ER and a by ER staff. Chest x-ray was obtained which demonstrated ET tube in the right mainstem bronchus at which time ET tube was pulled back 3 cm. The IJ was also into the right atrium and was recommended to be pulled back. The patient became hypotensive in the ER and was placed on pressor therapy with Levophed and dopamine Levophed at 5 and dopamine at 5. Once he had arrived in the ICU dopamine was discontinued in Levophed was increased to 10. The patient's blood pressures are stable. The patient is awake on the vent and is following commands. 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 Overall this morning patient are eyes are open however he does not follow any commands. Sedation was turned off. It was noticed that he has junctional bradycardia and therefore was started on dopamine 2 mics a blood pressure 105/70. His extremities are warm to touch. Creatinine 1.8, white cell count on admission 12 EKG, chest x-ray reviewed and analyzed myself shows bilateral infiltrates likely pulmonary edema, CT head shows old bilat
[2020-03-31] MEDS: ASPIRIN 325 MG TABLET PO (09:20)
[2020-03-31] MEDS: PANTOPRAZOLE SODIUM IV 40 MG VIAL IV PUSH (09:20)
[2020-03-31] MEDS: HEPARIN SODIUM 5,000 UNITS/ML VIAL 5000 UNITS SUB-Q ×2 (09:20→20:30)
[2020-03-31] MEDS: DOPamine 400 MG/D5W 250 ML 400 MG/250 ML BAG 5.36 MG IV CONT (09:20)
[2020-03-31] MEDS: SODIUM CHLORIDE 0.9% IV 1,000 ML 100 ML IV CONT ×2 (10:13→20:25)
--- NOTE | 2020-03-31 11:18 | WPDCNINT ---
Assessment and Plan Assessment and plan (1) Cardiac arrest with successful resuscitation: Code(s): I46.9 - Cardiac arrest, cause unspecified Status: Acute Assessment and Plan: Patient had cardiac arrest after choking on a piece of sausage. ECHO is ordered Cardiology is consulted Telemetry monitoring (2) Junctional bradycardia: Code(s): R00.1 - Bradycardia, unspecified Status: Acute Assessment and Plan: Metoprolol is on hold Dopamine infusion to keep his heart rate above 60 (3) Diabetes: Onset Date: Unknown Code(s): E11.9 - Type 2 diabetes mellitus without complications Status: Acute Assessment and Plan: Sliding scale insulin NPO at this time (4) FELICIA (acute kidney injury): Code(s): N17.9 - Acute kidney failure, unspecified Status: Acute Assessment and Plan: Creatinine mildly elevated from baseline. Likely prerenal from hypotension. Patient appears to have chronic kidney disease and has had acute kidney injury in the past. His most recent creatinine was 1.4 and highest in February was 4 Monitor urine output creatinine and electrolytes IV fluids (5) Aspiration pneumonia due to food (regurgitated): Code(s): J69.0 - Pneumonitis due to inhalation of food and vomit Status: Acute Assessment and Plan: Empiric Zosyn Cultures (6) Acute respiratory failure: Code(s): J96.00 - Acute respiratory failure, unspecified whether with hypoxia or hypercapnia Status: Acute Assessment and Plan: Acute Respiratory failure secondary to cardiac arrest and aspiration pneumonia Continue full mechanical ventilation support to prevent hypoxemia/hypercarbia and end organ damage. ABG and PCXR reviewed and will repeat in am. Low tidal volume ventilation strategy to prevent volutrauma (7) Shock: Code(s): R57.9 - Shock, unspecified Status: Acute Assessment and Plan: Sepsis versus cardiogenic patient also is bradycardia IV fluid bolus and infusion Dopamine infusion to treat bradycardia Levophed infusion titration to maintain map above 65 Check echo Patient does have history of coronary disease (8) NSTEMI (non-ST elevated myocardial infarction): Code(s): I21.4 - Non-ST elevation (NSTEMI) myocardial infarction Status: Acute Assessment and Plan: Small elevation in troponin likely from cardiac arrest and respiratory failure. Patient does have history of coronary disease Cardiology consult EKG did not show ST elevation Continue serial monitoring of troponin until they trend down Aspirin and Beta-elmer has been held because of shock Continue statin (9) Encephalopathy: Code(s): G93.40 - Encephalopathy, unspecified Status: Acute Assessment and Plan: Initially after discussion with the ED physician I requested patient be started on therapeutic hypothermia protocol for suspected anoxic brain injury but later patient showed purposeful movement to admitting physician and hence TTM protocol was not initiated. This morning patient was on sedation when I came to see him. 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 This critical care time included obtaining a history; examining the patient; pulse oximetry; ordering and review of studies; arranging urgent treatment with development of a management plan; evaluation of patient's response to treatment; frequent reassessment; and discussions with ot
[2020-03-31] MEDS: SODIUM CHLORIDE 0.9% IV 1,000 ML 999 ML IV CONT (11:48)
[2020-03-31] MEDS: INSULIN ASPART (*BKC) 100 UNITS/ML SUB-Q (12:34)
--- NOTE | 2020-03-31 12:41 | PM.EVENT ---
Event Note Event Note Event Note: Chest x-ray this morning showed central line tip to be in right atrium. I withdrew central line by 4 cm and re-sutured it. Repeat chest x-ray reviewed and shows central line tip superior vena cava now
[2020-03-31 14:32] LABS: Glucose Point of Care 279 (65-105)
[2020-03-31] MEDS: PERFLUTREN LIPID MICROSPHERES 1.5 ML VIAL DILUTED TO 10 ML TOTAL VOLUME IV PUSH (14:57)
[2020-03-31 18:02] LABS: Glucose Point of Care 120 (65-105)
[2020-03-31] MEDS: DOPamine 400 MG/D5W 250 ML 400 MG/250 ML BAG 8.03 MG IV CONT (20:25)
[2020-03-31 22:45] LABS: Troponin I 0.452 ng/mL (0.000-0.034)
[2020-04-01] VITALS (27 sets, daily range): BP systolic 120–174; BP diastolic 51–72; PULSE 66–82; RESP 10–24; TEMP 36.3–37.7; O2SAT 97–100
[2020-04-01 01:35] LABS: Glucose Point of Care 123 (65-105)
[2020-04-01 04:32] LABS: Basophils Percent Auto 0.1 % (0.2-1.2); Eosinophils Percent Auto 0.1 % (0-4.4); Hematocrit 28.1 % (42.0-52.0); Immature Granulocyte Absolute 0.07 K/mm3 (0.00-0.031); Immature Granulocyte Percent A 0.5 % (0-0.5); Lymphocytes Absolute Auto 0.49 K/mm3 (0.9-3.2); Lymphocytes Percent Auto 3.4 % (18.3-44.2); Mean Corpuscular HGB Conc 35.6 g/dl (32-36); Mean Corpuscular Hemoglobin 29.2 pg (26-34); Mean Corpuscular Volume 81.9 fl (80-100); Mean Platelet Volume 11.5 fl (7.4-10.4); Monocytes Absolute Auto 1.1 K/mm3 (0.1-0.6); Monocytes Percent Auto 7.9 % (2.6-8.5); Neutrophils Absolute Auto 12.7 K/mm3 (1.3-6.7); Platelet Count Result 176 k/mm3 (150-375); Red Blood Count 3.43 M/mm3 (4.6-6.20); Red Cell Distribution Width 14.8 % (11.5-14.5); White Blood Count 14.5 K/mm3 (4.5-10.0)
[2020-04-01 04:49] LABS: Alanine Aminotransferase 24 U/L (4-50); Albumin Level 2.5 g/dL (3.5-5.1); Alkaline Phosphatase 83 U/L (38-126); Anion Gap 2 mmol/L (8-16); Aspartate Amino Transferase 33 U/L (17-59); Bilirubin,Total 0.6 mg/dL (0.2-1.3); Blood Urea Nitrogen 27 mg/dL (9-20); Calcium 7.3 mg/dL (8.4-10.2); Carbon Dioxide 23 mmol/L (22-30); Chloride 106 mmol/L (98-107); Estimated CRCL calculation 21 ml/min; Estimated Glomerular Filt Rate 32; Glucose 113 mg/dL (75-110); Magnesium 1.2 mg/dL (1.6-2.3); Phosphorus 2.6 mg/dL (2.5-4.5); Potassium 4.1 mmol/L (3.4-5.0); Sodium 131 mmol/L (137-145)
[2020-04-01 05:03] LABS: Troponin I 0.331 ng/mL (0.000-0.034)
[2020-04-01 05:38] LABS: Alveolar/Arterial O2 Gradient 93.9 mmHg; Base Excess ABG -4.3 mEq/l (+/-2.0); Carboxyhemoglobin 0.3 % THb (0-2.0); Fractional Inspired Oxygen 30 %; HCO3 ABG 18.5 mEq/l (22.0-26.0); Methemoglobin ABG 0.1 %THb (0-1.5); Oxygen Content ABG 14.7 %vol (16.0-22.0); Oxygen Saturation ABG 97.3 % (95.0-100.0); Oxyhemoglobin 95.8 % THb (90.0-100.0); PCO2 ABG 26.8 mmHg (35.0-45.0); PO2 ABG 88.5 mmHg (80.0-100.0); PO2 FiO2 Ratio Arterial Blood 2.95 %; Reduced Hemoglobin 3.8 %THb (0-5.0); Site Drawn LEFT RADIAL; Total Hemoglobin 10.8 g/dL (12.0-18.0); pH ABG 7.456 (7.350-7.450)
[2020-04-01 05:39] LABS: Arterial Blood Gas PEEP 5 cmH2O; Arterial Blood Gas Tidal Volume 360 ml; Arterial Blood Gas Vent Mode CMV; Arterial Blood Gas Ventilator rate 18 /MIN; Device VENTILATOR; Modified Allen's Test Pass
[2020-04-01] MEDS: SODIUM CHLORIDE 0.9% IV 1,000 ML 100 ML IV CONT (06:10)
[2020-04-01 06:35] LABS: Glucose Point of Care 84 (65-105)
[2020-04-01] MEDS: FUROSEMIDE INJ 100 MG/10 ML VIAL 80 MG IV PUSH (07:34)
[2020-04-01] MEDS: PANTOPRAZOLE SODIUM IV 40 MG VIAL IV PUSH (08:31)
[2020-04-01] MEDS: ASPIRIN 325 MG TABLET PO (08:31)
[2020-04-01] MEDS: HEPARIN SODIUM 5,000 UNITS/ML VIAL 5000 UNITS SUB-Q ×2 (08:31→21:13)
--- NOTE | 2020-04-01 09:10 | WPDINTPN ---
Progress Note: A&P Assessment and Plan (1) Acute respiratory failure: Code(s): J96.00 - Acute respiratory failure, unspecified whether with hypoxia or hypercapnia Status: Acute Assessment and Plan: Acute Respiratory failure secondary to cardiac arrest and aspiration pneumonia I tried patient per on pressure support ventilation this morning but he had very low tidal volumes and had low respiratory rate Patient placed on 15/5 with adequate RSBI. Will continue slowly weaning down pressure support Continue full mechanical ventilation support to prevent hypoxemia/hypercarbia and end organ damage. ABG and PCXR reviewed and will repeat in am. Low tidal volume ventilation strategy to prevent volutrauma Chest x-ray show pulmonary edema vs pneumonia Discontinue IV fluids and will give Lasix IV x1 (2) Aspiration pneumonia due to food (regurgitated): Code(s): J69.0 - Pneumonitis due to inhalation of food and vomit Status: Acute Assessment and Plan: Empiric Zosyn Cultures (3) Encephalopathy: Code(s): G93.40 - Encephalopathy, unspecified Status: Acute Assessment and Plan: Initially after discussion with the ED physician I requested patient be started on therapeutic hypothermia protocol for suspected anoxic brain injury but later patient showed purposeful movement to admitting physician and hence TTM protocol was not initiated. 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 Likely prerenal from hypotension. Patient appears to have chronic kidney disease and has had acute kidney injury in the past. His most recent creatinine was 1.4 and highest in February was 4 Monitor urine output creatinine and electrolytes IV fluids (5) Cardiac arrest with successful resuscitation: Code(s): I46.9 - Cardiac arrest, cause unspecified Status: Acute Assessment and Plan: Patient had cardiac arrest after choking on a piece of sausage. ECHO 1. Technically difficult study with limited views. 2. Left ventricular systolic function is normal, estimated at 55-60%. 3. There is hypokinesis of the mid inferoseptum and mid anteroseptum. 4. There is mildly increased left ventricular wall thickness with sigmoid hypertrophy. 5. There is no aortic valve stenosis. 6. There is mild mitral valve regurgitation. 7. There is mild tricuspid valve regurgitation. 8. Moderate pulmonary hypertension, estimated pulmonary arterial systolic pressure is 51 mmHg. Cardiology is consulted and further cardiac workup as per Cardiology Telemetry monitoring (6) Junctional bradycardia: Code(s): R00.1 - Bradycardia, unspecified Status: Acute Assessment and Plan: Metoprolol is on hold. He was on dopamine earlier but has been weaned off Currently in sinus rhythm Monitor (7) Diabetes: Onset Date: Unknown Code(s): E11.9 - Type 2 diabetes mellitus without complications Status: Acute Assessment and Plan: Sliding scale insulin (8) Shock: Code(s): R57.9 - Shock, unspecified Status: Acute Assessment and Plan: Improved Sepsis versus cardiogenic patient also is bradycardia IV fluid bolus and infusion Dopamine infusion to treat bradycardia which is now weaned off Echo reviewed Patient does have history of coronary disease (9) NSTEMI (non-ST elevated myocardial infarction): Code(s): I21.4 - Non-ST elevation (NSTEMI) myocardial infarction Status: Acute Assessment and Plan: Small elevation in troponin likely from cardiac arrest and respiratory failure. Patient does have history of coronary disease Cardiology saw patient EKG did not show ST elevation Continue Aspirin and statin Beta-elmer has been
[2020-04-01] MEDS: MAGNESIUM SULF 2 GM/WATER 50ML 2 GM/50 ML BAG IVPB (09:33)
--- NOTE | 2020-04-01 10:33 | PCDIET ---
Nutrition Follow-Up Complete: Nutrition Diagnosis: Inadequate oral intake related to oral intubation as evidenced by NPO status. Nutrition Goal: Patient to meet estimated nutritional needs. Goal in progress. MD ordered Glucerna 1.2 at 50mL/hr goal rate which provides 1320kcal, 66g protein and 886mL free water over 22 hours/day. Agree with water flush of 30mL every 4 hours. Last recorded weight is 76.1 kg which is increased from last review. +I/O. Bowel Motility: No documented BM. Labs Reviewed: Hgb (10.0), Hct (28.1), Glu (113), BUN (27), Cr (2.0), Na (131), Alb (2.5), Stephania Ca (8.5), Mg (1.2) Meds Noted: Zosyn, Heparin, Lasix, Protonix, Zocor, Vancomycin Additional Notes: No documented skin breakdown. Will continue to monitor with same goal. Nutrition Monitoring and Evaluation: Follow up every Saturday/Saturday.
--- NOTE | 2020-04-01 11:11 | PM.CNPUL ---
Assessment and Plan Assessment and plan (1) Aspiration pneumonia due to food (regurgitated): Onset Date: 03/30/20 Code(s): J69.0 - Pneumonitis due to inhalation of food and vomit Status: Acute Assessment and Plan: Patient with pork chop aspiration during intubation. Although no lobar collapse on current CXR, I will proceed with bronchsocopy to assess for food in large airways. Informed consent obtained from [facility] Mansfield Paredes. History of Present Illness History of Present Illness Consult date: 04/01/20 Requesting physician: Osvalod Shah MD Reason for consult: other (aspiration of food) Chief complaint: post cardiac arrest Narrative: Patient admitted s/p cardiac arrest on 03/30. Patietn choked on a pork chop and then had trouble breathing. During intubation some material was pushed into trachea. Patient now remains intubated on 30% and peep of 5. Account Analyst requested bronchoscopy to assess for food in airway. Review of Systems Review of Systems: Narrative: Unable to obtain as intubated [facility] Past Medical History Medical History CAD (coronary artery disease) (Unknown) Colon cancer Congestive heart failure Diabetes (Unknown) GERD (gastroesophageal reflux disease) HTN (hypertension) Hyperlipidemia SBO (small bowel obstruction) (~02/2020) Stage 3b chronic kidney disease Subclinical hyperthyroidism Ventral hernia (Unknown) Vertigo Surgical History Surgical History History of partial colectomy Hx of CABG Family History Family History Father Cancer Mother Diabetes mellitus Sibling Heart attack Cancer Social History Social History Years smoked: 2 Smoking status: Former smoker Tobacco type: cigarettes Alcohol intake: never Substance use: never Gender identity (if verbalized by the patient): Male Spiritual care concerns: No Meds Home Medications and Allergies Home Medications Medication Instructions Recorded Confirmed Type Glucosamine Chondroitin 2 cap PO DAILY 03/13/20 03/31/20 History Januvia 50 mg PO DAILY 03/13/20 03/31/20 History amitriptyline 50 mg PO HS 03/13/20 03/31/20 History aspirin 81 mg PO DAILY 03/13/20 03/31/20 History docusate sodium [Colace] 100 mg PO Q12H 03/13/20 03/31/20 History folic acid 1 mg PO DAILY 03/13/20 03/31/20 History furosemide [Lasix] 20 mg PO DAILY 03/13/20 03/31/20 History lisinopril 20 mg PO DAILY 03/13/20 03/31/20 History meclizine 25 mg PO DAILY 03/13/20 03/31/20 History metoprolol succinate 25 mg PO DAILY 03/13/20 03/31/20 History pantoprazole [Protonix] 20 mg PO QAM 03/13/20 03/31/20 History primidone 50 mg PO Q12H 03/13/20 03/31/20 History simvastatin 40 mg PO HS 03/13/20 03/31/20 History Adult One Daily Multivitamin 1 tab-cap PO DAILY 03/14/20 03/31/20 History Allergies Allergy/AdvReac Type Severity Reaction Status Date / Time No Known Allergies Allergy Unverified 03/14/20 00:21 Vital Signs Vital Signs - 24 hr 03/31/20 11:40 03/31/20 12:00 03/31/20 12:02 Temperature 36.8 C Pulse Rate 69 74 74 Respiratory Rate 18 Blood Pressure 114/62 114/62 Pulse Oximetry 99 98 03/31/20 12:37 03/31/20 14:00 03/31/20 14:21 Temperature Pulse Rate 75 67 63 Respiratory Rate 18 Blood Pressure 115/49 L 114/55 L Pulse Oximetry 100 100 03/31/20 14:29 03/31/20 15:21 03/31/20 16:00 Temperature 37.3 C Pulse Rate 67 66 61 Respiratory Rate 18 Blood Pressure 117/54 L 118/53 L 115/54 L Pulse Oximetry 98 03/31/20 16:14 03/31/20 17:10 03/31/20 17:28 Temperature Pulse Rate 62 63 62 Respiratory Rate Blood Pressure 115/54 L 116/53 L Pulse Oximetry 100 03/31/20 17:57 03/31/20 17:59 03/31/20 18:00 Temperature Pulse Rate 65 66 66 Respiratory Rate 18 Blood Pressure 116/54 L 120/52 L
--- NOTE | 2020-04-01 11:37 | PM.OP ---
Procedure Note - Brief Procedure Note - Brief Date of procedure: 04/01/20 Pre-op diagnosis: post cardiac arrest Surgeon: Bronchoscopy Indication: Aspiration of food. After informed consent and time out patient given 2 ml of 2% lidocaine down ETT. Patient given 50 mics fentanyl. Brocnhscope inserted through existing ETT and patient had thick creamy secretions in trachea and throughout right lung. All segments inspected and patent on right. No foreign body on right. In left mainstem a brown 1 cm X 0.5 cm foreign body was aspirated and then withdrawal by removing entire scope and foreign body. Thick secretions on left aspirated. All segment open and patent on left. ETT 4 cm from pam: Specimens: bronchial washings sent for routine culture. CXR demonstrated ETT in position and no pneumothorax appreciated.
[2020-04-01] MEDS: LIDOCAINE HCL 2% LOCAL INJ 20 ML VIAL IRRIGATION (12:02)
[2020-04-01] MEDS: fentaNYL CITRATE INJ (*CRX) 100 MCG/2 ML VIAL 50 MCG IV PUSH (12:39)
[2020-04-01 12:43] LABS: Glucose Point of Care 111 (65-105)
[2020-04-01] MEDS: CENTRAL LINE FLUSH 10 ML IV PUSH ×2 (14:11→22:09)
--- NOTE | 2020-04-01 14:38 | PM.PNCARD ---
Progress Note: A&P Assessment and Plan (1) Cardiac arrest with successful resuscitation: Code(s): I46.9 - Cardiac arrest, cause unspecified Status: Acute Assessment and Plan: Patient had cardiac arrest after choking on a sausage. Status post bronch with extraction of foreign body L mainstem bronchus 1x0.5cm with thick creamy secretions in trachea and right lung. His troponins are mildly elevated and peaked at 0.44. Currently appears to be in atrial fibrillation with controlled heart rate off dopamine. Continue supportive care and observation. (2) Aspiration pneumonia due to food (regurgitated): Onset Date: 03/30/20 Code(s): J69.0 - Pneumonitis due to inhalation of food and vomit Status: Acute Assessment and Plan: As above. (3) Junctional bradycardia: Code(s): R00.1 - Bradycardia, unspecified Status: Acute Assessment and Plan: Resolved, patient in atrial fibrillation at present. Hold off on AV leeanna blocking agents. Dopamine on hold. Blood pressure stable. (4) Atrial fibrillation: Code(s): I48.91 - Unspecified atrial fibrillation Status: Acute Assessment and Plan: Probable A.Fib difficult to appreciate P wave activity and irregular QRS although cannot exclude low amplitude atrial activity with PAC's. Heart rate controlled. Twelve lead EKG. If persistent, systemic anticoagulation indicated depending on patient's recovery. DVT prophylaxis. (5) CAD (coronary artery disease): Onset Date: Unknown Code(s): I25.10 - Atherosclerotic heart disease of [place] coronary artery without angina pectoris Status: Acute Assessment and Plan: Stable, continue medical therapy as appropriate. Aspirin, simvastatin. Avoid beta-elmer. Resume lisinopril when appropriate. Non [place] troponin elevation. (6) Acute respiratory failure: Code(s): J96.00 - Acute respiratory failure, unspecified whether with hypoxia or hypercapnia Status: Acute Assessment and Plan: Per Critical Care. Wean vent support as tolerated. Subjective Date/time seen: Date of service: 04/01/20 14:38 Follow-up for cardiac arrest status post aspiration, junctional bradycardia Dopamine has subsequently been discontinued. Patient currently is in atrial fibrillation with controlled ventricular response. Status post bronch with extraction of 1 cm x 0.5 cm foreign body left mainstem bronchus. Hemodynamically stable today. Patient remains intubated, sedated. Review of Systems Review of Systems: All systems reviewed & are unremarkable except as noted in HPI and below ROS unobtainable: Yes unobtainable due to endotracheal tube Constitutional: Constitutional: Reports as per HPI Eyes: Eyes: Reports as per HPI ENT: Reports as per HPI Cardiovascular: Cardiovascular: Reports as per HPI Respiratory: Respiratory: Reports as per HPI Gastrointestinal: Gastrointestinal: Reports as per HPI Genitourinary: Genitourinary: Reports as per HPI Musculoskeletal: Musculoskeletal: Reports as per HPI Integumentary/Breasts: Skin/Breast: Reports as per HPI Neurologic: Reports as per HPI Psychiatric: Psychiatric: Reports as per HPI Endocrine: Endocrine: Reports no additional endocrine complaints and Reports as per HPI Hematologic/Lymphatic: Hematologic/Lymphatic: Reports no additional hematologic/lymphatic complaints and Reports as per HPI Allergic/Immunologic: Allergic/Immunologic: Reports no additional allergic/immunologic complaints and Reports as per HPI Exam Const: General: comfortable and no acute distress; No in distress Other: Intubated, mechanical ventilatory support, sedated. HENMT: General nose exam: no epistaxis Other: Endotracheal intubation Eyes: Sclera: sclerae normal and normal sclerae Neck: Neck: supple Thyroid: thyroid normal Resp: Auscultation: clear to auscultation bilaterally Cardio: Rate: bradycardic Rhythm: abnormal rhythm i
--- NOTE | 2020-04-01 14:48 | ECG_ITS ---
Measurements Intervals [place] Rate: 77 P: -72 ME: 202 QRS: -56 QRSD: 153 T: 14 QT: 454 QTc: 517 Interpretive Statements ACCELERATED JUNCTIONAL RHYTHM RIGHT BUNDLE BRANCH BLOCK LEFT ANTERIOR FASCICULAR BLOCK ABNORMAL ECG Electronically Signed On 04-01-2020 16:14:27 CUSTOMER MARKETING INTERN by Ramón Mckinney D.O.
[2020-04-01 17:35] LABS: Glucose Point of Care 79 (65-105)
[2020-04-01] MEDS: SIMVASTATIN 20 MG TABLET 40 MG PO (21:14)
[2020-04-02] VITALS (19 sets, daily range): BP systolic 118–165; BP diastolic 58–98; PULSE 8–97; RESP 15–21; TEMP 36.2–37.3; O2SAT 97–100
[2020-04-02 00:23] LABS: Glucose Point of Care 169 (65-105)
[2020-04-02 04:56] LABS: Alveolar/Arterial O2 Gradient 72.3 mmHg; Base Excess ABG -1.3 mEq/l (+/-2.0); Carboxyhemoglobin 0.3 % THb (0-2.0); Device VENTILATOR; Fractional Inspired Oxygen 30 %; HCO3 ABG 22.2 mEq/l (22.0-26.0); Methemoglobin ABG 0.1 %THb (0-1.5); Modified Allen's Test Pass; Oxygen Content ABG 16.5 %vol (16.0-22.0); Oxygen Saturation ABG 97.9 % (95.0-100.0); Oxyhemoglobin 96.7 % THb (90.0-100.0); PCO2 ABG 33.4 mmHg (35.0-45.0); PO2 ABG 102.4 mmHg (80.0-100.0); PO2 FiO2 Ratio Arterial Blood 3.41 %; Reduced Hemoglobin 2.9 %THb (0-5.0); Site Drawn RIGHT RADIAL; pH ABG 7.441 (7.350-7.450)
[2020-04-02 04:57] LABS: Arterial Blood Gas PEEP 5 cmH2O; Arterial Blood Gas Tidal Volume 360 ml; Arterial Blood Gas Vent Mode CMV; Arterial Blood Gas Ventilator rate 18 /MIN
[2020-04-02 06:20] LABS: Hematocrit 27.7 % (42.0-52.0); Hemoglobin 9.9 g/dL (14.0-18.0); Mean Corpuscular HGB Conc 35.7 g/dl (32-36); Mean Corpuscular Hemoglobin 28.6 pg (26-34); Mean Corpuscular Volume 80.1 fl (80-100); Platelet Count Result 191 k/mm3 (150-375); Red Blood Count 3.46 M/mm3 (4.6-6.20); Red Cell Distribution Width 14.6 % (11.5-14.5); White Blood Count 12.7 K/mm3 (4.5-10.0)
[2020-04-02] MEDS: CENTRAL LINE FLUSH 10 ML IV PUSH ×3 (06:29→20:42)
[2020-04-02 06:32] LABS: Alanine Aminotransferase 21 U/L (4-50); Albumin Level 2.6 g/dL (3.5-5.1); Alkaline Phosphatase 87 U/L (38-126); Anion Gap 3 mmol/L (8-16); Aspartate Amino Transferase 27 U/L (17-59); Bilirubin,Total 0.6 mg/dL (0.2-1.3); Blood Urea Nitrogen 24 mg/dL (9-20); Calcium 7.9 mg/dL (8.4-10.2); Carbon Dioxide 28 mmol/L (22-30); Chloride 100 mmol/L (98-107); Estimated CRCL calculation 24 ml/min; Estimated Glomerular Filt Rate 38; Glucose 196 mg/dL (75-110); Magnesium 1.4 mg/dL (1.6-2.3); Phosphorus 2.6 mg/dL (2.5-4.5); Potassium 3.7 mmol/L (3.4-5.0); Sodium 131 mmol/L (137-145)
[2020-04-02 07:24] LABS: Glucose Point of Care 193 (65-105)
[2020-04-02] MEDS: PANTOPRAZOLE SODIUM IV 40 MG VIAL IV PUSH (08:34)
[2020-04-02] MEDS: HEPARIN SODIUM 5,000 UNITS/ML VIAL 5000 UNITS SUB-Q ×2 (08:34→20:42)
[2020-04-02] MEDS: MAGNESIUM SULF 2 GM/WATER 50ML 2 GM/50 ML BAG IVPB (08:34)
[2020-04-02] MEDS: ASPIRIN 325 MG TABLET PO (08:34)
[2020-04-02 08:51] LABS: Alveolar/Arterial O2 Gradient 73.9 mmHg; Base Excess ABG -0.9 mEq/l (+/-2.0); Fractional Inspired Oxygen 30 %; Oxygen Content ABG 14.8 %vol (16.0-22.0); Oxygen Saturation ABG 97.7 % (95.0-100.0); Oxyhemoglobin 96.3 % THb (90.0-100.0); PO2 ABG 98.9 mmHg (80.0-100.0); Total Hemoglobin 10.8 g/dL (12.0-18.0); pH ABG 7.435 (7.350-7.450)
[2020-04-02 08:53] LABS: Device VENTILATOR; Modified Allen's Test Pass; Site Drawn RIGHT RADIAL
[2020-04-02 08:54] LABS: Arterial Blood Gas PEEP 5 cmH2O; Arterial Blood Gas Vent Mode SPONTANEOUS; Peak Inspiratory Pressure 5 cmH2O
--- NOTE | 2020-04-02 08:58 | WPDINTPN ---
Progress Note: A&P Assessment and Plan (1) Acute respiratory failure: Code(s): J96.00 - Acute respiratory failure, unspecified whether with hypoxia or hypercapnia Status: Acute Assessment and Plan: Acute Respiratory failure secondary to cardiac arrest and aspiration pneumonia Patient failed weaning trial yesterday. Lasix 80 mg IV x1 was given with good urine output 04/01 Patient had diagnostic and therapeutic bronchoscopy done yesterday and a small piece of pork chop along with secretions were suctioned out my pulmonary Will give Lasix 40 mg IV x1 again today and try weaning trial Continue full mechanical ventilation support to prevent hypoxemia/hypercarbia and end organ damage. ABG and PCXR reviewed and will repeat in am. Chest x-ray reviewed (2) Aspiration pneumonia due to food (regurgitated): Onset Date: 03/30/20 Code(s): J69.0 - Pneumonitis due to inhalation of food and vomit Status: Acute Assessment and Plan: Empiric Zosyn Cultures (3) Encephalopathy: Code(s): G93.40 - Encephalopathy, unspecified Status: Acute Assessment and Plan: Initially after discussion with the ED physician I requested patient be started on therapeutic hypothermia protocol for suspected anoxic brain injury but later patient showed purposeful movement to admitting physician and hence TTM protocol was not initiated. 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 Likely prerenal from hypotension. Patient appears to have chronic kidney disease and has had acute kidney injury in the past. His most recent creatinine was 1.4 and highest in February was 4 Monitor urine output creatinine and electrolytes. Creatinine is improving IV fluids DCed and on Lasix right now due to pulmonary edema Replace low magnesium (5) Cardiac arrest with successful resuscitation: Code(s): I46.9 - Cardiac arrest, cause unspecified Status: Acute Assessment and Plan: Patient had cardiac arrest after choking on a piece of sausage. ECHO 1. Technically difficult study with limited views. 2. Left ventricular systolic function is normal, estimated at 55-60%. 3. There is hypokinesis of the mid inferoseptum and mid anteroseptum. 4. There is mildly increased left ventricular wall thickness with sigmoid hypertrophy. 5. There is no aortic valve stenosis. 6. There is mild mitral valve regurgitation. 7. There is mild tricuspid valve regurgitation. 8. Moderate pulmonary hypertension, estimated pulmonary arterial systolic pressure is 51 mmHg. Cardiology is consulted and further cardiac workup as per Cardiology Telemetry monitoring (6) Junctional bradycardia: Code(s): R00.1 - Bradycardia, unspecified Status: Acute Assessment and Plan: Metoprolol is on hold. He was on dopamine earlier but has been weaned off Currently in sinus rhythm Monitor (7) Diabetes: Onset Date: Unknown Code(s): E11.9 - Type 2 diabetes mellitus without complications Status: Acute Assessment and Plan: Sliding scale insulin (8) Shock: Code(s): R57.9 - Shock, unspecified Status: Acute Assessment and Plan: Improved Sepsis versus cardiogenic patient also is bradycardia IV fluid bolus and infusion Dopamine infusion to treat bradycardia which is now weaned off Echo reviewed Patient does have history of coronary disease (9) NSTEMI (non-ST elevated myocardial infarction): Code(s): I21.4 - Non-ST elevation (NSTEMI) myocardial infarction Status: Acute Assessment and Plan: Small elevation in troponin likely from cardiac arrest and respiratory failure. Patient does have history of coronary disease Cardiology saw patient EK
[2020-04-02] MEDS: FUROSEMIDE INJ 40 MG/4 ML VIAL IV PUSH (09:29)
--- NOTE | 2020-04-02 10:14 | PM.PNCARD ---
Progress Note: A&P Assessment and Plan (1) Cardiac arrest with successful resuscitation: Code(s): I46.9 - Cardiac arrest, cause unspecified Status: Acute Assessment and Plan: Patient had cardiac arrest after choking on a sausage. Status post bronch with extraction of foreign body L mainstem bronchus 1x0.5cm with thick creamy secretions in trachea and right lung. His troponins are mildly elevated and peaked at 0.44. Continue supportive care and observation. Repeat EKG today (2) Aspiration pneumonia due to food (regurgitated): Onset Date: 03/30/20 Code(s): J69.0 - Pneumonitis due to inhalation of food and vomit Status: Acute Assessment and Plan: As above. (3) Junctional bradycardia: Code(s): R00.1 - Bradycardia, unspecified Status: Acute Assessment and Plan: Resolved, Hold off on AV leeanna blocking agents. Dopamine on hold. Blood pressure stable. Repeat EKG (4) Atrial fibrillation: Code(s): I48.91 - Unspecified atrial fibrillation Status: Acute Assessment and Plan: Probable A.Fib difficult to appreciate P wave activity and irregular QRS although cannot exclude low amplitude atrial activity with PAC's. Heart rate controlled. Twelve lead EKG. If persistent, systemic anticoagulation indicated depending on patient's recovery. DVT prophylaxis. (5) CAD (coronary artery disease): Onset Date: Unknown Code(s): I25.10 - Atherosclerotic heart disease of [place] coronary artery without angina pectoris Status: Acute Assessment and Plan: Stable, continue medical therapy as appropriate. Aspirin, simvastatin. Avoid beta-elmer. Resume lisinopril when appropriate. Non [place] troponin elevation. (6) Acute respiratory failure: Code(s): J96.00 - Acute respiratory failure, unspecified whether with hypoxia or hypercapnia Status: Acute Assessment and Plan: Per Critical Care. Wean vent support as tolerated. Subjective Date/time seen: 04/02/20 10:14 Interval history: 84-year-old status post choking episode and rest Date of service 04/02/2020: Awake alert on the ventilator. Responding appropriately. Denying any chest pain or shortness of breath Review of Systems Review of Systems: All systems reviewed & are unremarkable except as noted in HPI and below Eyes: Eyes: Reports as per HPI ENT: Reports as per HPI Cardiovascular: Cardiovascular: Reports as per HPI and Denies chest pain Respiratory: Respiratory: Reports as per HPI and Denies dyspnea Gastrointestinal: Gastrointestinal: Reports as per HPI and Denies abdominal pain Genitourinary: Genitourinary: Reports as per HPI Musculoskeletal: Musculoskeletal: Reports as per HPI Integumentary/Breasts: Skin/Breast: Reports as per HPI Neurologic: Reports as per HPI Psychiatric: Psychiatric: Reports as per HPI Endocrine: Endocrine: Reports no additional endocrine complaints and Reports as per HPI Hematologic/Lymphatic: Hematologic/Lymphatic: Reports no additional hematologic/lymphatic complaints, Reports as per HPI and Denies easy bleeding Allergic/Immunologic: Allergic/Immunologic: Reports no additional allergic/immunologic complaints and Reports as per HPI Exam Const: General: comfortable and no acute distress; No in distress Other: Intubated, mechanical ventilatory support, but awake HENMT: General nose exam: no epistaxis Other: Endotracheal intubation Eyes: Sclera: sclerae normal and normal sclerae Neck: Neck: supple Thyroid: thyroid normal Resp: Auscultation: clear to auscultation bilaterally Cardio: Rate: bradycardic Rhythm: abnormal rhythm irregularly irregular Heart sounds: no murmurs and no rubs GI: Inspection: non-distended Urinary Catheter: Urinary Catheter: patent and draining Skin: General skin exam: normal color and no erythema Neuro: Other: on mechanical ventilatory support Extrem: General: no edema Other: No cyanosi
--- NOTE | 2020-04-02 10:18 | ECG_ITS ---
Measurements Intervals [place] Rate: 78 P: IA: 0 QRS: -64 QRSD: 166 T: 41 QT: 444 QTc: 507 Interpretive Statements SINUS RHYTHM WITH MARKED FIRST DEGREE AV BLOCK ATRIAL AND VENTRICULAR PREMATURE COMPLEXES RIGHT BUNDLE BRANCH BLOCK LEFT ANTERIOR FASCICULAR BLOCK ABNORMAL ECG Electronically Signed On 04-02-2020 15:15:22 BLUEPRINT CUTTER by Ramón Mckinney D.O.
[2020-04-02 12:35] LABS: Glucose Point of Care 155 (65-105)
--- NOTE | 2020-04-02 12:55 | PM.IMPN ---
Progress Note: A&P Assessment and Plan (1) Atrial fibrillation: Code(s): I48.91 - Unspecified atrial fibrillation Status: Acute Assessment and Plan: Cardiology is following may need anticoagulation final diagnosis for AFib need to be confirmed as per cardiology (2) Encephalopathy: Code(s): G93.40 - Encephalopathy, unspecified Status: Acute Assessment and Plan: Most likely metabolic encephalopathy secondary to hypoxia secondary to cardiac arrest resolved (3) NSTEMI (non-ST elevated myocardial infarction): Code(s): I21.4 - Non-ST elevation (NSTEMI) myocardial infarction Status: Acute Assessment and Plan: Most likely NSTEMI type 2 cardiology following most likely related to demand ischemia secondary to cardiogenic shock (4) Shock: Code(s): R57.9 - Shock, unspecified Status: Acute Assessment and Plan: Cardiogenic shock most likely related to foreign body aspiration complicated by acute hypoxemic respiratory failure (5) Aspiration pneumonia due to food (regurgitated): Onset Date: 03/30/20 Code(s): J69.0 - Pneumonitis due to inhalation of food and vomit Status: Acute Assessment and Plan: Current on IV Zosyn (6) Junctional bradycardia: Code(s): R00.1 - Bradycardia, unspecified Status: Acute Assessment and Plan: Was treated with dopamine metoprolol on hold now dopamine was discontinued (7) Cardiac arrest with successful resuscitation: Code(s): I46.9 - Cardiac arrest, cause unspecified Status: Acute Assessment and Plan: Monitor secondary to foreign body aspiration (8) HTN (hypertension): Code(s): I10 - Essential (primary) hypertension Status: Chronic Assessment and Plan: Continue current treatment (9) Acute on chronic kidney failure: Onset Date: Unknown Code(s): N17.9 - Acute kidney failure, unspecified; N18.9 - Chronic kidney disease, unspecified Status: Acute Assessment and Plan: Baseline creatinine around 1.6 resolved (10) CAD (coronary artery disease): Onset Date: Unknown Code(s): I25.10 - Atherosclerotic heart disease of [place] coronary artery without angina pectoris Status: Acute Assessment and Plan: Continue home medication Subjective Date/time seen: 04/02/20 12:55 Interval history: Patient seen and examined Patient was transferred to [facility] patient was choking on a piece of sausage had cardiac arrest and asystole patient was intubated by EMS with return of pulse patient also was found to be hypotensive at the ER of the transplanted facility patient was placed on Levophed and dopamine patient had episodes of AFib with RVR also had hypotension probably cardiogenic shock patient had another episode of PEA REQUIRED CPR AGAIN AND THE TRANSFERRING ER WITH RETURN OF CIRCULATION PATIENT DID NOT HAVE HYPOTHERMIA PROTOCOL PATIENT WAS TRANSFERRED TO [facility] CONTINUED TO BE INTUBATED CARDIOLOGY WAS CONSULTED PATIENT ALSO HAS ELEVATED TROPONIN AND CONCERN FOR AFIB WITH RVR PER CARDIOLOGY UNSURE IF THE PATIENT HAVE AFIB WITH RVR AND ELEVATED TROPONIN MOST LIKELY NSTEMI TYPE 2 ECHO NO SIGNIFICANT FINDING PATIENT ALSO WAS FOUND TO HAVE ASPIRATION PNEUMONIA TREATED WITH IV ZOSYN ON 04/02/2020 TRIAL FOR EXTUBATION WAS DONE ALSO PATIENT WAS GIVEN IV LASIX CONCERN FOR PULMONARY EDEMA PER CRITICAL CARE I am seeing the patient for PNEUMONIA Review of Systems Review of Systems: ROS unobtainable: Yes unobtainable due to medical condition Exam Narrative: Exam Narrative: ALERT CHEST NO WHEEZE CRACKLES ABDOMEN NONTENDER NONDISTENDED CVS S1 + S2 LOWER EXTREMITY EDEMA Objective Data Vital Signs Vital Signs: Vital Signs - 24 hr 04/01/20 14:00 04/01/20 14:09 04/01/20 16:00 Temperature 97.3 F L Pulse Rate 77 78 80 Respiratory Rate 18 18 Blood Pressure 174/72 H 159/63 H Pulse Oximetry 100 98 99 03/18
[2020-04-02 18:06] LABS: Glucose Point of Care 126 (65-105)
[2020-04-02] MEDS: SIMVASTATIN 20 MG TABLET 40 MG PO (20:42)
[2020-04-03] VITALS (14 sets, daily range): BP systolic 119–181; BP diastolic 49–95; PULSE 55–97; RESP 14–22; TEMP 35.6–36.8; O2SAT 96–100
[2020-04-03 00:50] LABS: Glucose Point of Care 97 (65-105)
[2020-04-03 04:54] LABS: Base Excess ABG 0.8 mEq/l (+/-2.0); Carboxyhemoglobin 0.2 % THb (0-2.0); Device ROOM AIR; Fractional Inspired Oxygen 21 %; HCO3 ABG 25.2 mEq/l (22.0-26.0); Methemoglobin ABG 0.3 %THb (0-1.5); Modified Allen's Test Pass; Oxygen Content ABG 14.2 %vol (16.0-22.0); Oxygen Saturation ABG 89.6 % (95.0-100.0); Oxyhemoglobin 89.5 % THb (90.0-100.0); PCO2 ABG 39.5 mmHg (35.0-45.0); PO2 ABG 55.4 mmHg (80.0-100.0); PO2 FiO2 Ratio Arterial Blood 2.64 %; Site Drawn RIGHT RADIAL; Total Hemoglobin 11.3 g/dL (12.0-18.0); pH ABG 7.423 (7.350-7.450)
[2020-04-03 05:44] LABS: Hemoglobin 11.1 g/dL (14.0-18.0); Mean Corpuscular HGB Conc 34.7 g/dl (32-36); Mean Corpuscular Hemoglobin 28.5 pg (26-34); Mean Corpuscular Volume 82.3 fl (80-100); Mean Platelet Volume 11.7 fl (7.4-10.4); Platelet Count Result 204 k/mm3 (150-375); Red Blood Count 3.89 M/mm3 (4.6-6.20); Red Cell Distribution Width 14.8 % (11.5-14.5); White Blood Count 11.4 K/mm3 (4.5-10.0)
[2020-04-03 05:55] LABS: Alanine Aminotransferase 22 U/L (4-50); Albumin Level 3.2 g/dL (3.5-5.1); Alkaline Phosphatase 97 U/L (38-126); Anion Gap 7 mmol/L (8-16); Aspartate Amino Transferase 27 U/L (17-59); Bilirubin,Total 0.7 mg/dL (0.2-1.3); Blood Urea Nitrogen 18 mg/dL (9-20); Calcium 8.5 mg/dL (8.4-10.2); Carbon Dioxide 27 mmol/L (22-30); Chloride 95 mmol/L (98-107); Estimated CRCL calculation 27 ml/min; Estimated Glomerular Filt Rate 44; Glucose 115 mg/dL (75-110); Magnesium 1.5 mg/dL (1.6-2.3); Phosphorus 3.3 mg/dL (2.5-4.5); Potassium 3.4 mmol/L (3.4-5.0); Sodium 129 mmol/L (137-145)
[2020-04-03] MEDS: CENTRAL LINE FLUSH 10 ML IV PUSH (06:42)
[2020-04-03] MEDS: MAGNESIUM SULF 2 GM/WATER 50ML 2 GM/50 ML BAG IVPB (07:44)
[2020-04-03] MEDS: HEPARIN SODIUM 5,000 UNITS/ML VIAL 5000 UNITS SUB-Q ×2 (07:46→20:28)
[2020-04-03] MEDS: PANTOPRAZOLE SODIUM IV 40 MG VIAL IV PUSH (07:46)
[2020-04-03] MEDS: METOPROLOL TARTRATE 12.5 MG TABLET PO (08:06)
[2020-04-03] MEDS: ASPIRIN 325 MG TABLET PO (08:06)
--- NOTE | 2020-04-03 08:15 | WPDINTPN ---
Progress Note: A&P Assessment and Plan (1) Acute respiratory failure: Code(s): J96.00 - Acute respiratory failure, unspecified whether with hypoxia or hypercapnia Status: Acute Assessment and Plan: Acute Respiratory failure secondary to cardiac arrest and aspiration pneumonia and pulmonary edema Received Lasix last 2 days 04/01 Patient had diagnostic and therapeutic bronchoscopy done and a small piece of pork chop along with secretions were suctioned out my pulmonary 04/02 Patient extubated after successful weaning trial 04/03 patient on room air. Up in chair, incentive spirometry (2) Aspiration pneumonia due to food (regurgitated): Onset Date: 03/30/20 Code(s): J69.0 - Pneumonitis due to inhalation of food and vomit Status: Acute Assessment and Plan: Empiric Zosyn Cultures grew yeast which probably is a colonizer Consult speech was swallow eval (3) Encephalopathy: Code(s): G93.40 - Encephalopathy, unspecified Status: Acute Assessment and Plan: Initially after discussion with the ED physician I requested patient be started on therapeutic hypothermia protocol for suspected anoxic brain injury but later patient showed purposeful movement to admitting physician and hence TTM protocol was not initiated. 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 He is not oriented and is baseline is not known and potassium (4) FELICIA (acute kidney injury): Code(s): N17.9 - Acute kidney failure, unspecified Status: Acute Assessment and Plan: Creatinine mildly elevated from baseline. Likely prerenal from hypotension. Patient appears to have chronic kidney disease and has had acute kidney injury in the past. His most recent creatinine was 1.4 and highest in February was 4 Monitor urine output creatinine and electrolytes. Creatinine is improving Replace low magnesium and potassium (5) Cardiac arrest with successful resuscitation: Code(s): I46.9 - Cardiac arrest, cause unspecified Status: Acute Assessment and Plan: Patient had cardiac arrest after choking on a piece of sausage. ECHO 1. Technically difficult study with limited views. 2. Left ventricular systolic function is normal, estimated at 55-60%. 3. There is hypokinesis of the mid inferoseptum and mid anteroseptum. 4. There is mildly increased left ventricular wall thickness with sigmoid hypertrophy. 5. There is no aortic valve stenosis. 6. There is mild mitral valve regurgitation. 7. There is mild tricuspid valve regurgitation. 8. Moderate pulmonary hypertension, estimated pulmonary arterial systolic pressure is 51 mmHg. Cardiology is consulted and further cardiac workup as per Cardiology Telemetry monitoring (6) Junctional bradycardia: Code(s): R00.1 - Bradycardia, unspecified Status: Acute Assessment and Plan: Resolved Now in sinus rhythm with bundle branch block. Will resume low-dose beta-elmer Monitor (7) Diabetes: Onset Date: Unknown Code(s): E11.9 - Type 2 diabetes mellitus without complications Status: Acute Assessment and Plan: Sliding scale insulin (8) Shock: Code(s): R57.9 - Shock, unspecified Status: Acute Assessment and Plan: Resolved (9) NSTEMI (non-ST elevated myocardial infarction): Code(s): I21.4 - Non-ST elevation (NSTEMI) myocardial infarction Status: Acute Assessment and Plan: Small elevation in troponin likely from cardiac arrest and respiratory failure. Patient does have history of coronary disease Cardiology saw patient EKG did not show ST elevation Continue Aspirin and statin Beta-elmer has been held because of shock but will resume today Additional Plan DVT prophylaxis -heparin subcu Stress ulcer prophylaxis -PPI Nutrition -NPO until swallow eval Code Status -patient is DNR after discussion with family in [place]
--- NOTE | 2020-04-03 09:38 | PM.PNCARD ---
Progress Note: A&P Assessment and Plan (1) Cardiac arrest with successful resuscitation: Code(s): I46.9 - Cardiac arrest, cause unspecified Status: Acute Assessment and Plan: Patient had cardiac arrest after choking on a sausage. Status post bronch with extraction of foreign body L mainstem bronchus 1x0.5cm with thick creamy secretions in trachea and right lung. His troponins are mildly elevated and peaked at 0.44. Continue supportive care and observation. Extubated and doing well. Okay to move to a medicine with telemetry (2) Aspiration pneumonia due to food (regurgitated): Onset Date: 03/30/20 Code(s): J69.0 - Pneumonitis due to inhalation of food and vomit Status: Acute Assessment and Plan: As above. (3) Junctional bradycardia: Code(s): R00.1 - Bradycardia, unspecified Status: Acute Assessment and Plan: Resolved, Hold off on AV leeanna blocking agents. Dopamine on hold. Blood pressure stable. Resolved (4) Atrial fibrillation: Code(s): I48.91 - Unspecified atrial fibrillation Status: Acute Assessment and Plan: Resolved (5) CAD (coronary artery disease): Onset Date: Unknown Code(s): I25.10 - Atherosclerotic heart disease of [place] coronary artery without angina pectoris Status: Acute Assessment and Plan: Stable, continue medical therapy as appropriate. Aspirin, simvastatin. Avoid beta-elmer. Resume lisinopril when appropriate. Non [place] troponin elevation. (6) Acute respiratory failure: Code(s): J96.00 - Acute respiratory failure, unspecified whether with hypoxia or hypercapnia Status: Acute Assessment and Plan: Per Critical Care. Wean vent support as tolerated. (7) HTN (hypertension): Code(s): I10 - Essential (primary) hypertension Status: Chronic Assessment and Plan: Will resume some low-dose lisinopril at 10 mg daily. Renal function is improving Subjective Date/time seen: 04/03/20 09:38 Interval history: 84-year-old status post choking episode and rest Date of service 04/03/2020: Extubated. Doing well. No chest pain or shortness of breath. Review of Systems Review of Systems: All systems reviewed & are unremarkable except as noted in HPI and below Constitutional: Constitutional: Reports as per HPI Eyes: Eyes: Reports as per HPI ENT: Reports as per HPI Cardiovascular: Cardiovascular: Reports as per HPI, Denies chest pain and Denies dyspnea Respiratory: Respiratory: Reports as per HPI and Denies dyspnea Gastrointestinal: Gastrointestinal: Reports as per HPI and Denies abdominal pain Genitourinary: Genitourinary: Reports as per HPI Musculoskeletal: Musculoskeletal: Reports as per HPI Integumentary/Breasts: Skin/Breast: Reports as per HPI Neurologic: Reports as per HPI Psychiatric: Psychiatric: Reports as per HPI Endocrine: Endocrine: Reports no additional endocrine complaints and Reports as per HPI Hematologic/Lymphatic: Hematologic/Lymphatic: Reports no additional hematologic/lymphatic complaints, Reports as per HPI and Denies easy bleeding Allergic/Immunologic: Allergic/Immunologic: Reports no additional allergic/immunologic complaints and Reports as per HPI Exam Const: General: comfortable and no acute distress; No in distress Other: Awake and alert HENMT: General nose exam: no epistaxis Eyes: Sclera: sclerae normal and normal sclerae Neck: Neck: supple Thyroid: thyroid normal Resp: Auscultation: clear to auscultation bilaterally Cardio: Rate: regular rate Rhythm: regular rhythm Heart sounds: no murmurs and no rubs GI: Inspection: non-distended Urinary Catheter: Urinary Catheter: patent and draining Skin: General skin exam: normal color and no erythema Neuro: Other: Awake and alert Extrem: General: no edema Other: No cyanosis, extremities warm and well perfused Psych: Other: Appropriate Objective Data
[2020-04-03] MEDS: lisinopriL 10 MG TABLET PO (09:56)
--- NOTE | 2020-04-03 10:04 | PCSTNOTE ---
Please refer to the Bedside Swallow Evaluation in the EMR. Please note, silent aspiration cannot be ruled out at bedside.
--- NOTE | 2020-04-03 11:17 | PCSTNOTE ---
Please refer to the Modified Barium Swallow Evaluation in the EMR.
[2020-04-03 11:51] LABS: Glucose Point of Care 221 (65-105)
[2020-04-03] MEDS: INSULIN ASPART (*BKC) 100 UNITS/ML SUB-Q (11:54)
--- NOTE | 2020-04-03 13:13 | PM.IMPN ---
Progress Note: A&P Assessment and Plan (1) Aspiration pneumonia due to food (regurgitated): Onset Date: 03/30/20 Qualifiers: Laterality: unspecified laterality Lung location: unspecified part of lung Qualified Code(s): J69.0 - Pneumonitis due to inhalation of food and vomit Code(s): J69.0 - Pneumonitis due to inhalation of food and vomit Status: Acute Assessment and Plan: Current on IV Zosyn To medical telemetry floor (2) Atrial fibrillation: Qualifiers: Atrial fibrillation type: paroxysmal Qualified Code(s): I48.0 - Paroxysmal atrial fibrillation Code(s): I48.91 - Unspecified atrial fibrillation Status: Acute Assessment and Plan: Likely related to episode of apsiration Resolved No ongoing treatment (3) Encephalopathy: Code(s): G93.40 - Encephalopathy, unspecified Status: Acute Assessment and Plan: Most likely metabolic encephalopathy secondary to hypoxia secondary to cardiac arrest resolved (4) NSTEMI (non-ST elevated myocardial infarction): Code(s): I21.4 - Non-ST elevation (NSTEMI) myocardial infarction Status: Acute Assessment and Plan: Most likely NSTEMI type 2 Cardiac arrest after choking on a sausage, status post bronch with extraction of foreign body L mainstem bronchus 1x0.5cm with thick creamy secretions in trachea and right lung (5) Shock: Code(s): R57.9 - Shock, unspecified Status: Acute Assessment and Plan: Cardiogenic shock most likely related to foreign body aspiration complicated by acute hypoxemic respiratory failure (6) Junctional bradycardia: Code(s): R00.1 - Bradycardia, unspecified Status: Acute Assessment and Plan: Resolved (7) Cardiac arrest with successful resuscitation: Code(s): I46.9 - Cardiac arrest, cause unspecified Status: Acute Assessment and Plan: Monitor secondary to foreign body aspiration (8) HTN (hypertension): Qualifiers: Hypertension type: unspecified Qualified Code(s): I10 - Essential (primary) hypertension Code(s): I10 - Essential (primary) hypertension Status: Chronic Assessment and Plan: Continue current treatment (9) Acute on chronic kidney failure: Onset Date: Unknown Qualifiers: Acute renal failure type: unspecified Chronic kidney disease stage: stage 3 (moderate) Chronic kidney disease stage 3 subtype: unspecified whether 3a or 3b Qualified Code(s): N17.9 - Acute kidney failure, unspecified; N18.30 - Chronic kidney disease, stage 3 unspecified Code(s): N17.9 - Acute kidney failure, unspecified; N18.9 - Chronic kidney disease, unspecified Status: Acute Assessment and Plan: Resolved Now back at baseline with stage 3 CKD (10) CAD (coronary artery disease): Onset Date: Unknown Qualifiers: Coronary Disease-Associated Artery/Lesion type: unspecified vessel or lesion type [place] vs. transplanted heart: unspecified whether [place] or transplanted heart Associated angina: angina presence unspecified Qualified Code(s): I25.10 - Atherosclerotic heart disease of [place] coronary artery without angina pectoris Code(s): I25.10 - Atherosclerotic heart disease of [place] coronary artery without angina pectoris Status: Acute Assessment and Plan: Continue home medication Subjective Date/time seen: 04/03/20 13:13 Interval history: 84-year-old status post choking on food with cardiopulmonary arrest 04/03/18: Feels tired. Tolerating minced and moist with thickened liquids. Denied pain. Admitted mild COLIN on r/a. Exam Narrative: Exam Narrative: HEENT:PERRL, sclerae nonicteric, pharyngeal mucosa pink and intact NECK: No JVD, adenopathy, or thyromegaly CHEST: Coarse BS. Normal effort. HEART: NL S1/S2, regular, no murmur ABDOMEN: BS+, soft, nontender, no mass, no bruits EXTREMITIES: No cyanosis, edema, or club
[2020-04-03 17:57] LABS: Glucose Point of Care 191 (65-105)
--- NOTE | 2020-04-03 18:09 | PC.NURSE ---
Patient transfer received from IMU per wheelchair. Report received from MARSHALL Watts.
--- NOTE | 2020-04-03 18:19 | PC.NURSE ---
This patient, Mireya Mccullough, [facility] at 1820. Personal belongings sent with patient. Report given to [leanne tipton ]. Appropriate documentation sent with patient.
[2020-04-03] MEDS: SIMVASTATIN 20 MG TABLET 40 MG PO (20:28)
[2020-04-03 20:48] LABS: Glucose Point of Care 209 (65-105)
[2020-04-04] VITALS (11 sets, daily range): BP systolic 134–174; BP diastolic 44–68; PULSE 65–94; RESP 16–18; TEMP 36–36.8; O2SAT 94–98
[2020-04-04 06:05] LABS: Hematocrit 31.3 % (42.0-52.0); Mean Corpuscular HGB Conc 35.1 g/dl (32-36); Mean Corpuscular Hemoglobin 28.9 pg (26-34); Mean Corpuscular Volume 82.2 fl (80-100); Mean Platelet Volume 12.1 fl (7.4-10.4); Platelet Count Result 215 k/mm3 (150-375); Red Blood Count 3.81 M/mm3 (4.6-6.20); Red Cell Distribution Width 14.5 % (11.5-14.5); White Blood Count 7.9 K/mm3 (4.5-10.0)
[2020-04-04 06:19] LABS: Alanine Aminotransferase 19 U/L (4-50); Albumin Level 2.9 g/dL (3.5-5.1); Alkaline Phosphatase 81 U/L (38-126); Anion Gap 1 mmol/L (8-16); Aspartate Amino Transferase 24 U/L (17-59); Bilirubin,Total 0.4 mg/dL (0.2-1.3); Blood Urea Nitrogen 22 mg/dL (9-20); Calcium 8.3 mg/dL (8.4-10.2); Carbon Dioxide 32 mmol/L (22-30); Chloride 95 mmol/L (98-107); Estimated CRCL calculation 26 ml/min; Estimated Glomerular Filt Rate 41; Glucose 221 mg/dL (75-110); Magnesium 1.9 mg/dL (1.6-2.3); Potassium 4.1 mmol/L (3.4-5.0); Sodium 128 mmol/L (137-145)
[2020-04-04 07:35] LABS: Glucose Point of Care 176 (65-105)
[2020-04-04] MEDS: ASPIRIN 325 MG TABLET PO (09:19)
[2020-04-04] MEDS: lisinopriL 10 MG TABLET PO (09:20)
[2020-04-04] MEDS: PANTOPRAZOLE SODIUM IV 40 MG VIAL IV PUSH (09:20)
[2020-04-04] MEDS: HEPARIN SODIUM 5,000 UNITS/ML VIAL 5000 UNITS SUB-Q ×2 (09:20→20:30)
[2020-04-04 11:56] LABS: Glucose Point of Care 192 (65-105)
--- NOTE | 2020-04-04 12:28 | PCNFU ---
Nutrition Follow-Up Complete: Inadequate oral intake related to oral intubation as evidenced by NPO status. Goal:Patient to meet estimated nutritional needs. Progressing towards goal. We will continue current goal. Pt current nutrition is Minced and Moist, Level 5 and Mildly Thick,Level 2 . Last recorded weight is 68.7 kg up from 71.4 kg. Bowel Motility:+BM 04/04 Labs Reviewed:GFR 41,BUN 22,Na 128,Hgb 11.0, Hct 31.3 Meds Noted:NovoLog,Prinivil,Protonix,Vancomycin Additional Notes:Patient seen today for nutrition follow up. Oral Intake for breakfast 75% of meals. MBS performed on 04/03. Diet order has advanced to a Minced and Moist Level 5 diet with Mildly Thick Liquids, Level 2. Monitoring: weight, labs, meds, every 5 days.
--- NOTE | 2020-04-04 12:59 | WPDINFPN2 ---
Progress Note: A&P Assessment and Plan (1) Fungus isolated but not further identified: Code(s): B49 - Unspecified mycosis Status: Acute Assessment and Plan: 1. Fungus in BAL, infection unlikely 2. Airway obstruction, resolved as is leukocytosis, though CXR still abnormal REC Stop antibacterials. Await identification of fungus and will consider further evaluation at that point Subjective Date/time seen: 04/04/20 12:59 Objective Data Vital Signs Vital Signs: Vital Signs - 24 hr 04/03/20 14:00 04/03/20 16:00 04/03/20 18:00 Temperature 35.6 C L Pulse Rate 55 L 59 L 56 L Respiratory Rate 14 Blood Pressure 129/74 Pulse Oximetry 98 04/03/20 20:00 04/03/20 20:09 04/04/20 00:00 Temperature 35.9 C L Pulse Rate 62 62 65 Respiratory Rate 18 18 Blood Pressure 119/64 Pulse Oximetry 99 99 04/04/20 04:00 04/04/20 05:50 04/04/20 08:00 Temperature 36.8 C Pulse Rate 73 69 78 Respiratory Rate 18 Blood Pressure 134/44 L Pulse Oximetry 94 04/04/20 08:03 04/04/20 10:28 04/04/20 12:00 Temperature Pulse Rate 76 Respiratory Rate Blood Pressure 152/49 H Pulse Oximetry 97 Intake/Output Intake/Output: Intake & Output 04/01/20 04/02/20 04/03/20 04/04/20 23:59 23:59 23:59 23:59 Intake Total 2037 1080 1400 640 Output Total 3900 3000 1600 800 Balance -1863 -1920 -200 -160 Meds/Results Medications: Active Medications Generic Name Dose Route Start Last Admin Trade Name Freq PRN Reason Stop Dose Admin Aspirin 325 mg 03/31/20 08:35 04/04/20 09:19 Aspirin 325 Mg Tablet PO 325 mg DAILY@0800 [facility] Administration Dextrose 12.5 gm 03/31/20 11:19 Dextrose 50% 25 Gm/50 Ml Syringe IV PUSH PRN PRN Hypoglycemia Protocol Glucagon 1 mg 03/31/20 11:19 Glucagon For Inj 1 Mg Vial IM PRN PRN Hypoglycemia Protocol Glucose 15 gm 03/31/20 11:19 Glucose Oral Gel 15 Gm Of Glucse In 37.5 Gm Tube PO PRN PRN Hypoglycemia Protocol Heparin Sodium (Porcine) 5,000 units 03/31/20 09:00 04/04/20 09:20 Heparin Sodium 5,000 Units/Ml Vial SUB-Q 5,000 units Q12HR [facility] Administration Dextrose 1,000 mls @ 100 mls/hr 03/31/20 11:19 Dextrose 5% 1,000 Ml IVPB PRN PRN Hypoglycemia Protocol Insulin Aspart 3 - 6 units 04/03/20 17:00 04/04/20 11:54 Insulin Aspart (*Bkc) 100 Units/Ml SUB-Q Not Given TIDWM [facility] Protocol Lisinopril 10 mg 04/03/20 09:45 04/04/20 09:20 Lisinopril 10 Mg Tablet PO 10 mg DAILY [facility] Administration Multi-Ingred Cream/Lotion/Oil/Oint 1 applic 03/31/20 09:00 04/04/20 09:20 Mineral Oil/Petrolatum,White 1 Applic EACH EYE Not Given Q12HR [facility] Ondansetron HCl 4 mg 03/31/20 00:42 Ondansetron Inj 4 Mg/2 Ml Vial IV PUSH Q4H PRN Nausea Pantoprazole Sodium 40 mg 03/31/20 09:00 04/04/20 09:20 Pantoprazole Sodium Iv 40 Mg Vial IV PUSH 40 mg QAM [facility] Administration Simvastatin 40 mg 04/01/20 21:00 04/03/20 20:28 Simvastatin 20 Mg Tablet PO 40 mg HS [facility] Administration Sodium Chloride 20 ml 04/01/20 07:21 Central Line Flush IV PUSH PRN PRN after blood draws Radiology Results: ITS Impressions Head CT 03/30/20 23:42 IMPRESSION: 1. No acute intracranial process. 2. 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 3. Age-related changes including moderate diffuse volume loss and extensive scattered white matter hypoattenuation consistent with chronic small vessel ischemic disease. Chest X-Ray 04/03/20 08:08 Impression: 1: Bilateral airspace disease with right perihilar consolidation. Differential diagnosis includes pneumonia, atelectasis and/or edema. No significant change compared with 04/02/2020. Modified Barium Swallow 04/03/20 11:22 IMPRESSION: 1: Penetration with aspiration with thin liquids. 2: Please refer to speech pathologist report for additio
--- NOTE | 2020-04-04 13:24 | PM.IMPN ---
Progress Note: A&P Assessment and Plan (1) Aspiration pneumonia due to food (regurgitated): Onset Date: 03/30/20 Qualifiers: Laterality: unspecified laterality Lung location: unspecified part of lung Qualified Code(s): J69.0 - Pneumonitis due to inhalation of food and vomit Code(s): J69.0 - Pneumonitis due to inhalation of food and vomit Status: Acute Assessment and Plan: Patient aspirated on a sausage resulting in cardiopulmonary arrest. He is status post bronch with extraction of foreign body L mainstem bronchus 1x0.5cm with thick creamy secretions in trachea and right lung. Treated with Zosyn and Vanco. Sputum Cx negative but BAL culture growing moderate growth of yeast. Will have culture grown out. ID consult and they have seen the patietn earlier today and abx have been stopped. Continue to monitor. Appreciate ID input. (2) Atrial fibrillation: Qualifiers: Atrial fibrillation type: paroxysmal Qualified Code(s): I48.0 - Paroxysmal atrial fibrillation Code(s): I48.91 - Unspecified atrial fibrillation Status: Acute Assessment and Plan: Likely related to episode of aspiration and cardiac arrest. Resolved. No ongoing treatment. (3) Encephalopathy: Code(s): G93.40 - Encephalopathy, unspecified Status: Acute Assessment and Plan: Most likely metabolic encephalopathy secondary to hypoxia secondary to cardiac arrest. Symptoms have resolved (4) NSTEMI (non-ST elevated myocardial infarction): Code(s): I21.4 - Non-ST elevation (NSTEMI) myocardial infarction Status: Acute Assessment and Plan: Most likely NSTEMI type 2 related to the cardiac arrest after choking. Echo 03/31/20 showing normal LV systolic function with EF 55-60%. There is hypokinesis of the mid inferoseptum and mid anteroseptum and moderate pulmonary HTN (51 mmHg). (5) Shock: Code(s): R57.9 - Shock, unspecified Status: Acute Assessment and Plan: Cardiogenic shock most likely related to foreign body aspiration complicated by acute hypoxemic respiratory failure. Resolved. (6) Junctional bradycardia: Code(s): R00.1 - Bradycardia, unspecified Status: Acute Assessment and Plan: Resolved. Beta elmer on hold. (7) Cardiac arrest with successful resuscitation: Code(s): I46.9 - Cardiac arrest, cause unspecified Status: Acute Assessment and Plan: Secondary to foreign body aspiration. Continue to monitor. DNR at this time. (8) HTN (hypertension): Qualifiers: Hypertension type: unspecified Qualified Code(s): I10 - Essential (primary) hypertension Code(s): I10 - Essential (primary) hypertension Status: Chronic Assessment and Plan: BP reviewed on 04/04. BP remains mostly well controlled. Continue current treatment (9) Acute on chronic kidney failure: Onset Date: Unknown Qualifiers: Acute renal failure type: unspecified Chronic kidney disease stage: stage 3 (moderate) Chronic kidney disease stage 3 subtype: unspecified whether 3a or 3b Qualified Code(s): N17.9 - Acute kidney failure, unspecified; N18.30 - Chronic kidney disease, stage 3 unspecified Code(s): N17.9 - Acute kidney failure, unspecified; N18.9 - Chronic kidney disease, unspecified Status: Acute Assessment and Plan: Cr 2.0 on admission but back to baseline. Has underlying CKD 3. Continue to follow. (10) CAD (coronary artery disease): Onset Date: Unknown Qualifiers: Associated angina: angina presence unspecified Coronary Disease-Associated Artery/Lesion type: unspecified vessel or lesion type [place] vs. transplanted heart: unspecified whether [place] or transplanted heart Qualified Code(s): I25.10 - Atherosclerotic heart disease of [place] coronary artery without angina pectoris Code(s): I25.10 - Atheroscle
--- NOTE | 2020-04-04 14:07 | CONS_ITS ---
DATE OF CONSULTATION: 04/04/2020 REASON FOR CONSULTATION: Fungus isolation. HISTORY OF PRESENT ILLNESS: An 84-year-old male who choked on a pork chop and suffered cardiorespiratory arrest. He was brought to the emergency room on the evening of the and was admitted early on the . His initial rhythm was one of asystole. He received amiodarone and epinephrine and on arrival here was intubated, unresponsive, but with a pulse. He received resuscitation. He has been given piperacillin and vancomycin. On the morning of the , he had bronchoscopy performed. Thick creamy secretions were noted in trachea throughout the right lung. A 1 x 5 cm foreign body was removed from the left mainstem bronchus and thick secretions also aspirated. He was left intubated after his bronchoscopy, but has now been extubated and is on the floor. He denies current shortness of breath, cough, anterior-posterior chest pain, long-term problems with dysphagia or choking on food. His hospital course has otherwise been complicated by bradycardia, renal insufficiency, now returned to his baseline of stage 3. He has lost some 40 pounds of weight in the last 6 months, but states this is intentional in nature. He denies dyspnea and is on room air. ALLERGIES: NONE KNOWN. HABITS: Ex-smoker. No alcohol. PRESENT MEDICATIONS: No immunosuppressants. He is on piperacillin and vancomycin day 5. PAST MEDICAL HISTORY: In addition to above, CABG several years ago, partial colectomy, ventral hernia, SBO, hyperlipidemia, hypertension, GERD, diabetes mellitus, heart failure, colon cancer, and the CAD. He had no valvular surgeries done. REVIEW OF SYSTEMS: Hyperglycemia. 14-point review otherwise negative. FAMILY HISTORY: Not pertinent to his present illness. SOCIAL HISTORY: He formerly worked at [employer], now lives locally. He is and retired. PHYSICAL EXAMINATION: GENERAL: This is an elderly male who appears his actual age. No acute distress. VITAL SIGNS: On the , he had a temperature of 37.7, otherwise has been consistently afebrile. 97% on room air, 76, 152/49. SKIN: Ecchymoses, decreased turgor, warm and dry. No rashes. NODES: He has no axillary or cervical adenopathy. EENT: Pupils equal, round, and reactive to light. The oropharynx, oral mucosa normal. NECK: No masses or thyromegaly. Trachea is in the midline. He has no stridor. LUNGS: Clear to auscultation and percussion. Good air entry. He has no fremitus, no egophony. CHEST: Equal expansion. Normal AP diameter. No indwelling vascular devices. CARDIAC: Regular rate and rhythm. No murmur or gallop. Pulses are 1+. ABDOMEN: Nontender, firm. No organomegaly. No masses. EXTREMITIES: Without clubbing, cyanosis, edema. NEUROLOGIC: He is awake, alert, oriented, appropriate. LABORATORY DATA: His white count on arrival 12.2, enid up to 21.5 early the following morning, has been declined since then to 7.9 today, hemoglobin 11, platelets are 215. No differential done. Blood gases yesterday, 7.42, 40, 55, 25, 90% on room air. He has hyponatremia. BUN 22, creatinine 1.6 up from 1.5. Accu-Cheks in the 100s to 200s. Hemoglobin A1c 7.7% when performed about 3 weeks ago. Albumin 2.9. Urinalysis was done on admission for unknown reasons, normal other than 1+ protein. Blood cultures are not performed on admission. Sputum culture from admission, mixed oral fabiola. From the bronchoscopy suite, yeast has been isolated, budding yeast with Pseudohyphae seen on Gram stain. RADIOLOGY: I personally reviewed his chest x-rays. He has persistent infiltrates mid to lower lung field. I reviewed the radiologist reading as well. ASSESSMENT: 1. Yeast isolation, I suspect this is a commensal due
--- NOTE | 2020-04-04 15:06 | PM.PNCARD ---
Progress Note: A&P Additional Plan 84-year-old gentleman with: Episode of choking sausage resulting in arrest and intubation on admission to the hospital. Patient has clinically stabilized doing well. Elevation of troponin in the setting is not surprising. Obviously the patient has previously undergone coronary artery bypass surgery states this was about 10 years ago probably done in [place] since he but says he saw physician at the [facility]. Cardiovascular status is stable and discharge at any time is okay with me. Anton Mahmood MD [facility] Subjective Date/time seen: Date of service: 04/04/20 15:06 Interval history: 84-year-old status post choking episode and rest Date of service 04/03/2020: Extubated. Doing well. No chest pain or shortness of breath. Exam Const: General: comfortable and no acute distress; No in distress Other: Awake and alert HENMT: General nose exam: no epistaxis Other: Endotracheal intubation Eyes: Sclera: sclerae normal and normal sclerae Neck: Neck: supple Thyroid: thyroid normal Resp: Auscultation: clear to auscultation bilaterally Cardio: Rate: regular rate Rhythm: regular rhythm Heart sounds: no murmurs and no rubs GI: Inspection: non-distended Urinary Catheter: Urinary Catheter: patent and draining Skin: General skin exam: normal color and no erythema Neuro: Other: Awake and alert Extrem: General: no edema Other: No cyanosis, extremities warm and well perfused Psych: Other: Appropriate Objective Data Vital Signs Vital Signs: Vital Signs - 24 hr 04/03/20 16:00 04/03/20 18:00 04/03/20 20:00 Temperature 35.6 C L Pulse Rate 59 L 56 L 62 Respiratory Rate 14 18 Blood Pressure 129/74 Pulse Oximetry 98 99 04/03/20 20:09 04/04/20 00:00 04/04/20 04:00 Temperature 35.9 C L Pulse Rate 62 65 73 Respiratory Rate 18 Blood Pressure 119/64 Pulse Oximetry 99 04/04/20 05:50 04/04/20 08:00 04/04/20 08:03 Temperature 36.8 C Pulse Rate 69 78 Respiratory Rate 18 Blood Pressure 134/44 L 152/49 H Pulse Oximetry 94 04/04/20 10:28 04/04/20 12:00 Temperature Pulse Rate 76 Respiratory Rate Blood Pressure Pulse Oximetry 97 Intake/Output Intake/Output: Intake & Output 04/01/20 04/02/20 04/03/20 04/04/20 23:59 23:59 23:59 23:59 Intake Total 2037 1080 1400 1000 Output Total 3900 3000 1600 800 Balance -1863 -1920 -200 200 Meds/Results Medications: Active Medications Generic Name Dose Route Start Last Admin Trade Name Freq PRN Reason Stop Dose Admin Aspirin 325 mg 03/31/20 08:35 04/04/20 09:19 Aspirin 325 Mg Tablet PO 325 mg DAILY@0800 [facility] Administration Dextrose 12.5 gm 03/31/20 11:19 Dextrose 50% 25 Gm/50 Ml Syringe IV PUSH PRN PRN Hypoglycemia Protocol Docusate Sodium 100 mg 04/04/20 21:00 Docusate Sodium 100 Mg Capsule PO Q12HR [facility] Glucagon 1 mg 03/31/20 11:19 Glucagon For Inj 1 Mg Vial IM PRN PRN Hypoglycemia Protocol Glucose 15 gm 03/31/20 11:19 Glucose Oral Gel 15 Gm Of Glucse In 37.5 Gm Tube PO PRN PRN Hypoglycemia Protocol Heparin Sodium (Porcine) 5,000 units 03/31/20 09:00 04/04/20 09:20 Heparin Sodium 5,000 Units/Ml Vial SUB-Q 5,000 units Q12HR [facility] Administration Dextrose 1,000 mls @ 100 mls/hr 03/31/20 11:19 Dextrose 5% 1,000 Ml IVPB PRN PRN Hypoglycemia Protocol Insulin Aspart 3 - 6 units 04/03/20 17:00 04/04/20 11:54 Insulin Aspart (*Bkc) 100 Units/Ml SUB-Q Not Given TIDWM [facility] Protocol Lisinopril 10 mg 04/03/20 09:45 04/04/20 09:20 Lisinopril 10 Mg Tablet PO 10 mg DAILY [facility] Administration Multi-Ingred Cream/Lotion/Oil/Oint 1 applic 03/31/20 09:00 04/04/20 09:20 Mineral Oil/Petrolatum,White 1 Applic EACH EYE Not Given Q12HR [facility] Ondansetron HCl 4 mg 03/31/20 00:42 Ondansetron Inj 4 Mg/2 Ml Vial IV PUSH Q4H PRN Na
[2020-04-04 16:47] LABS: Glucose Point of Care 231 (65-105)
[2020-04-04] MEDS: INSULIN ASPART (*BKC) 100 UNITS/ML SUB-Q (17:39)
[2020-04-04] MEDS: DOCUSATE SODIUM 100 MG CAPSULE PO (20:29)
[2020-04-04] MEDS: SIMVASTATIN 20 MG TABLET 40 MG PO (20:29)
[2020-04-04 20:46] LABS: Glucose Point of Care 213 (65-105)
[2020-04-05] VITALS (7 sets, daily range): BP systolic 114–160; BP diastolic 55–89; PULSE 77–92; RESP 16–18; TEMP 36.4–36.8; O2SAT 94–97
[2020-04-05 05:51] LABS: Hemoglobin 10.5 g/dL (14.0-18.0); Mean Corpuscular Hemoglobin 29.2 pg (26-34); Mean Corpuscular Volume 83.3 fl (80-100); Mean Platelet Volume 11.2 fl (7.4-10.4); Platelet Count Result 241 k/mm3 (150-375); Red Cell Distribution Width 14.5 % (11.5-14.5); White Blood Count 7.9 K/mm3 (4.5-10.0)
[2020-04-05 06:14] LABS: Alanine Aminotransferase 20 U/L (4-50); Alkaline Phosphatase 75 U/L (38-126); Anion Gap 4 mmol/L (8-16); Aspartate Amino Transferase 29 U/L (17-59); Bilirubin,Total 0.5 mg/dL (0.2-1.3); Blood Urea Nitrogen 22 mg/dL (9-20); Calcium 8.5 mg/dL (8.4-10.2); Carbon Dioxide 32 mmol/L (22-30); Chloride 98 mmol/L (98-107); Estimated CRCL calculation 27 ml/min; Estimated Glomerular Filt Rate 44; Glucose 118 mg/dL (75-110); Magnesium 1.8 mg/dL (1.6-2.3); Phosphorus 3.2 mg/dL (2.5-4.5); Potassium 3.9 mmol/L (3.4-5.0); Sodium 134 mmol/L (137-145)
[2020-04-05 07:31] LABS: Glucose Point of Care 109 (65-105)
[2020-04-05] MEDS: ASPIRIN 325 MG TABLET PO (08:30)
[2020-04-05] MEDS: DOCUSATE SODIUM 100 MG CAPSULE PO ×2 (08:30→20:03)
[2020-04-05] MEDS: lisinopriL 10 MG TABLET PO (08:30)
[2020-04-05] MEDS: PANTOPRAZOLE SODIUM IV 40 MG VIAL IV PUSH (08:30)
[2020-04-05] MEDS: HEPARIN SODIUM 5,000 UNITS/ML VIAL 5000 UNITS SUB-Q ×2 (08:31→20:04)
[2020-04-05 11:32] LABS: Glucose Point of Care 248 (65-105)
--- NOTE | 2020-04-05 11:39 | PM.IMPN ---
Progress Note: A&P Assessment and Plan (1) Aspiration pneumonia due to food (regurgitated): Onset Date: 03/30/20 Qualifiers: Laterality: unspecified laterality Lung location: unspecified part of lung Qualified Code(s): J69.0 - Pneumonitis due to inhalation of food and vomit Code(s): J69.0 - Pneumonitis due to inhalation of food and vomit Status: Acute Assessment and Plan: Patient aspirated on a sausage resulting in cardiopulmonary arrest. He is status post bronch with extraction of foreign body Left mainstem bronchus 1x0.5cm with thick creamy secretions in trachea and right lung. Treated with Zosyn and Vanco. Sputum Cx negative but BAL culture growing moderate growth of yeast. ID following. Abx stopped 04/04. Awaiting final sputum cx result. Continue to monitor. Appreciate ID input. Continue current modified diet. (2) Atrial fibrillation: Qualifiers: Atrial fibrillation type: paroxysmal Qualified Code(s): I48.0 - Paroxysmal atrial fibrillation Code(s): I48.91 - Unspecified atrial fibrillation Status: Acute Assessment and Plan: Likely related to episode of aspiration and cardiac arrest. Resolved. No ongoing treatment. (3) Encephalopathy: Code(s): G93.40 - Encephalopathy, unspecified Status: Acute Assessment and Plan: Most likely metabolic encephalopathy secondary to hypoxia secondary to cardiac arrest. 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 Continue to monitor (4) NSTEMI (non-ST elevated myocardial infarction): Code(s): I21.4 - Non-ST elevation (NSTEMI) myocardial infarction Status: Acute Assessment and Plan: Most likely NSTEMI type 2 related to the cardiac arrest after choking. Echo 03/31/20 showing normal LV systolic function with EF 55-60%. There is hypokinesis of the mid inferoseptum and mid anteroseptum and moderate pulmonary HTN (51 mmHg). (5) Shock: Code(s): R57.9 - Shock, unspecified Status: Acute Assessment and Plan: Cardiogenic shock most likely related to foreign body aspiration complicated by acute hypoxemic respiratory failure. Resolved. (6) Junctional bradycardia: Code(s): R00.1 - Bradycardia, unspecified Status: Acute Assessment and Plan: Resolved. No further events by telemetry. Beta elmer on hold. Okay to stop telemetry if okay with Cardiology (7) Cardiac arrest with successful resuscitation: Code(s): I46.9 - Cardiac arrest, cause unspecified Status: Acute Assessment and Plan: Secondary to foreign body aspiration. Continue to monitor. DNR at this time. (8) HTN (hypertension): Qualifiers: Hypertension type: unspecified Qualified Code(s): I10 - Essential (primary) hypertension Code(s): I10 - Essential (primary) hypertension Status: Chronic Assessment and Plan: BP reviewed on 04/05 BP remains mostly well controlled. Continue current treatment (9) Acute on chronic kidney failure: Onset Date: Unknown Qualifiers: Acute renal failure type: unspecified Chronic kidney disease stage: stage 3 (moderate) Chronic kidney disease stage 3 subtype: unspecified whether 3a or 3b Qualified Code(s): N17.9 - Acute kidney failure, unspecified; N18.30 - Chronic kidney disease, stage 3 unspecified Code(s): N17.9 - Acute kidney failure, unspecified; N18.9 - Chronic kidney disease, unspecified Status: Acute Assessment and Plan: Cr 2.0 on admission but back to baseline. Has underlying CKD 3. Continue to follow. (10) CAD (coronary artery disease): Onset Date: Unknown Qualifiers: Associated angina: angina presence unspecified Coronary Disease-Associated Artery/Lesion type: unspecified vessel or lesion type [place] vs. transplanted heart: unspecified whether [place] or transplanted heart Qualified Code(s)
[2020-04-05] MEDS: SODIUM CHLORIDE 0.9% INJ 10 ML (11:48)
[2020-04-05] MEDS: INSULIN ASPART (*BKC) 100 UNITS/ML SUB-Q ×2 (11:48→17:07)
[2020-04-05] MEDS: MULTIVITAMINS THERAPEUTIC TAB (*BKC) 1 TABLET PO (12:44)
[2020-04-05] MEDS: FOLIC ACID 1 MG TABLET PO (12:44)
[2020-04-05] MEDS: PRIMIDONE 12.5 MG TABLET PO ×2 (12:44→20:04)
--- NOTE | 2020-04-05 12:58 | WPDINFPN2 ---
Progress Note: A&P Assessment and Plan (1) Fungus isolated but not further identified: Code(s): B49 - Unspecified mycosis Status: Acute Assessment and Plan: 1. 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 Airway obstruction, resolved as is leukocytosis, though CXR still abnormal 3. Aspiration syndrome by MBS REC Off antibacterials. No further eval nor treatment from my standpoint. Will see prn, thanks Subjective Date/time seen: 04/05/20 12:58 Interval history: no complaints Exam Narrative: Exam Narrative: afebrile Const: General: no acute distress Resp: Effort & Inspection: normal respiratory effort Auscultation: clear to auscultation bilaterally Cardio: Rate: regular rate Rhythm: regular rhythm Heart sounds: no murmurs GI: Inspection: non-distended GI Palp: Yes Soft to palpation and No Tenderness to palpation present (GI) Skin: General skin exam: normal color and no rashes or lesions noted Objective Data Vital Signs Vital Signs: Vital Signs - 24 hr 04/04/20 14:00 04/04/20 16:00 04/04/20 20:00 Temperature 36.0 C L Pulse Rate 71 76 94 Respiratory Rate 16 Blood Pressure 134/68 Pulse Oximetry 98 04/04/20 21:54 04/05/20 00:00 04/05/20 04:00 Temperature 36.1 C L Pulse Rate 78 82 91 Respiratory Rate 16 Blood Pressure 174/62 H Pulse Oximetry 98 04/05/20 06:00 Temperature 36.4 C L Pulse Rate 92 Respiratory Rate 16 Blood Pressure 114/89 Pulse Oximetry 94 Intake/Output Intake/Output: Intake & Output 04/02/20 04/03/20 04/04/20 04/05/20 23:59 23:59 23:59 23:59 Intake Total 1080 1400 1240 120 Output Total 3000 1600 1250 350 Balance -1920 -200 -10 -230 Meds/Results Medications: Active Medications Generic Name Dose Route Start Last Admin Trade Name Freq PRN Reason Stop Dose Admin Aspirin 325 mg 03/31/20 08:35 04/05/20 08:30 Aspirin 325 Mg Tablet PO 325 mg DAILY@0800 ROCIO Administration Dextrose 12.5 gm 03/31/20 11:19 Dextrose 50% 25 Gm/50 Ml Syringe IV PUSH PRN PRN Hypoglycemia Protocol Docusate Sodium 100 mg 04/04/20 21:00 04/05/20 08:30 Docusate Sodium 100 Mg Capsule PO 100 mg Q12HR ROCIO Administration Folic Acid 1 mg 04/05/20 09:00 04/05/20 12:44 Folic Acid 1 Mg Tablet PO 1 mg DAILY ROCIO Administration Glucagon 1 mg 03/31/20 11:19 Glucagon For Inj 1 Mg Vial IM PRN PRN Hypoglycemia Protocol Glucose 15 gm 03/31/20 11:19 Glucose Oral Gel 15 Gm Of Glucse In 37.5 Gm Tube PO PRN PRN Hypoglycemia Protocol Heparin Sodium (Porcine) 5,000 units 03/31/20 09:00 04/05/20 08:31 Heparin Sodium 5,000 Units/Ml Vial SUB-Q 5,000 units Q12HR ROCIO Administration Dextrose 1,000 mls @ 100 mls/hr 03/31/20 11:19 Dextrose 5% 1,000 Ml IVPB PRN PRN Hypoglycemia Protocol Insulin Aspart 3 - 6 units 04/03/20 17:00 04/05/20 11:48 Insulin Aspart (*Bkc) 100 Units/Ml SUB-Q 3 units TIDWM ROCIO Administration Protocol Lisinopril 10 mg 04/03/20 09:45 04/05/20 08:30 Lisinopril 10 Mg Tablet PO 10 mg DAILY ROCIO Administration Multi-Ingred Cream/Lotion/Oil/Oint 1 applic 03/31/20 09:00 04/05/20 08:31 Mineral Oil/Petrolatum,White 1 Applic EACH EYE 1 applic Q12HR ROCIO Administration Multivitamins Therapeutic 1 tablet 04/05/20 09:00 04/05/20 12:44 Multivitamins Therapeutic Tab (*Bkc) PO 1 tablet QAM ROCIO Administration Ondansetron HCl 4 mg 03/31/20 00:42 Ondansetron Inj 4 Mg/2 Ml Vial IV PUSH Q4H PRN Nausea Pantoprazole Sodium 20 mg 04/06/20 09:00 Pantoprazole Sod Sesquihydrate 20 Mg Tab PO QAM ROCIO Primidone 12.5 mg 04/05/20 11:55 04/05/20 12:44 Primidone 12.5 Mg Tablet PO 12.5 mg Q12HR ROCIO Administration Simvastatin 40 mg 04/01/20 21:00 04/04/20 20:29 Simvastatin 20 Mg Tablet PO 40 mg HS ROCIO Administration Sitagliptin Phosphate
--- NOTE | 2020-04-05 13:43 | PM.PNCARD ---
Progress Note: A&P Assessment and Plan (1) Cardiac arrest with successful resuscitation: Code(s): I46.9 - Cardiac arrest, cause unspecified Status: Acute Assessment and Plan: Patient had cardiac arrest after choking on a sausage. Status post bronch with extraction of foreign body L mainstem bronchus His troponins are mildly elevated and peaked at 0.44. Extubated and doing well. Has some anoxic encephopathy (2) Aspiration pneumonia due to food (regurgitated): Onset Date: 03/30/20 Qualifiers: Laterality: unspecified laterality Lung location: unspecified part of lung Qualified Code(s): J69.0 - Pneumonitis due to inhalation of food and vomit Code(s): J69.0 - Pneumonitis due to inhalation of food and vomit Status: Acute Assessment and Plan: As above. (3) Junctional bradycardia: Code(s): R00.1 - Bradycardia, unspecified Status: Acute Assessment and Plan: Transient bradycardia related to recent arrest, Resolved OK to DC telemetry. (4) Atrial fibrillation: Qualifiers: Atrial fibrillation type: paroxysmal Qualified Code(s): I48.0 - Paroxysmal atrial fibrillation Code(s): I48.91 - Unspecified atrial fibrillation Status: Acute Assessment and Plan: Transient atrial fibrillation likely related to recent arrest, Resolved (5) CAD (coronary artery disease): Onset Date: Unknown Qualifiers: Coronary Disease-Associated Artery/Lesion type: unspecified vessel or lesion type [place] vs. transplanted heart: unspecified whether [place] or transplanted heart Associated angina: angina presence unspecified Qualified Code(s): I25.10 - Atherosclerotic heart disease of [place] coronary artery without angina pectoris Code(s): I25.10 - Atherosclerotic heart disease of [place] coronary artery without angina pectoris Status: Acute Assessment and Plan: Stable CAD, continue medical therapy as appropriate. Cont aspirin, simvastatin, lisinopril. Non DC troponin elevation 2nd resp arrest. (6) Acute respiratory failure: Code(s): J96.00 - Acute respiratory failure, unspecified whether with hypoxia or hypercapnia Status: Acute Assessment and Plan: Resolved. (7) HTN (hypertension): Qualifiers: Hypertension type: unspecified Qualified Code(s): I10 - Essential (primary) hypertension Code(s): I10 - Essential (primary) hypertension Status: Chronic Assessment and Plan: BP variable, will follow. Subjective Date/time seen: 04/05/20 13:43 Interval history: Follow-up for: 84-year-old status post choking episode and arrest, transient atrial fibrillation and junctional rhythm post arrest. History of CAD and elevated troponins. 04/03/2020: Extubated. Doing well. No chest pain or shortness of breath. Date of service: 04/05/2020 patient now on medical floor, will not keep his telemetry leads on. No arrhythmias noted however. Denies any problems with chest pain or shortness of breath. Is confused. Review of Systems Constitutional: Constitutional: Denies fatigue Eyes: Eyes: Reports no additional eye complaints ENT: Denies epistaxis Cardiovascular: Cardiovascular: Denies chest pain, Denies pedal edema, Denies lightheadedness and Denies palpitations Respiratory: Respiratory: Denies cough and Denies dyspnea Gastrointestinal: Gastrointestinal: Denies abdominal pain Genitourinary: Genitourinary: Denies dysuria Musculoskeletal: Musculoskeletal: Denies back pain Integumentary/Br
[2020-04-05 16:36] LABS: Glucose Point of Care 206 (65-105)
--- NOTE | 2020-04-05 17:19 | PC.NURSE ---
Spoke with family regarding discharge instructions. Family aware that he may discharge tomorrow.
[2020-04-05] MEDS: SIMVASTATIN 20 MG TABLET 40 MG PO (20:03)
[2020-04-05 22:01] LABS: Glucose Point of Care 143 (65-105)
[2020-04-06 05:36] VITALS: BP 124/62; PULSE 85; RESP 20; TEMP 36.6; O2SAT 92
[2020-04-06 06:06] LABS: Anion Gap 1 mmol/L (8-16); Blood Urea Nitrogen 24 mg/dL (9-20); Calcium 8.6 mg/dL (8.4-10.2); Carbon Dioxide 34 mmol/L (22-30); Chloride 100 mmol/L (98-107); Estimated CRCL calculation 26 ml/min; Estimated Glomerular Filt Rate 41; Glucose 132 mg/dL (75-110); Potassium 3.9 mmol/L (3.4-5.0); Sodium 135 mmol/L (137-145)
[2020-04-06 07:47] LABS: Glucose Point of Care 129 (65-105)
[2020-04-06] MEDS: PRIMIDONE 12.5 MG TABLET PO (09:28)
[2020-04-06] MEDS: MULTIVITAMINS THERAPEUTIC TAB (*BKC) 1 TABLET PO (09:28)
[2020-04-06] MEDS: PANTOPRAZOLE SOD SESQUIHYDRATE 20 MG TAB PO (09:28)
[2020-04-06] MEDS: lisinopriL 10 MG TABLET PO (09:28)
[2020-04-06] MEDS: ASPIRIN 325 MG TABLET PO (09:28)
[2020-04-06] MEDS: HEPARIN SODIUM 5,000 UNITS/ML VIAL 5000 UNITS SUB-Q (09:28)
[2020-04-06] MEDS: FOLIC ACID 1 MG TABLET PO (09:28)
[2020-04-06] MEDS: DOCUSATE SODIUM 100 MG CAPSULE PO (09:28)
--- NOTE | 2020-04-06 09:37 | PM.DS ---
DS: Admitting Diagnosis Admitting Diagnosis Admitting Diagnosis: Aspiration, cardiopulmonary arrest DS: Discharge Diagnosis Discharge Diagnosis (1) Aspiration pneumonia due to food (regurgitated): Onset Date: 03/30/20 Qualifiers: Laterality: unspecified laterality Lung location: unspecified part of lung Qualified Code(s): J69.0 - Pneumonitis due to inhalation of food and vomit Code(s): J69.0 - Pneumonitis due to inhalation of food and vomit Status: Acute Assessment and Plan: Patient aspirated on a sausage resulting in cardiopulmonary arrest. He is status post bronch with extraction of foreign body Left mainstem bronchus 1x0.5cm with thick creamy secretions in trachea and right lung. Treated with Zosyn and Vanco. Sputum Cx negative but BAL culture growing moderate growth of yeast. ID consulted. Abx stopped 04/04. Final sputum cx result showing Maggie. No further treatment required. Seen by speech therapy and had a modified barium swallow. We continued the modified diet. He was retested and was felt he did not need thickened liquids. Instructions given to family. (2) Atrial fibrillation: Qualifiers: Atrial fibrillation type: paroxysmal Qualified Code(s): I48.0 - Paroxysmal atrial fibrillation Code(s): I48.91 - Unspecified atrial fibrillation Status: Acute Assessment and Plan: Likely related to episode of aspiration and cardiac arrest. Resolved. No ongoing treatment. (3) Encephalopathy: Code(s): G93.40 - Encephalopathy, unspecified Status: Acute Assessment and Plan: Most likely metabolic encephalopathy secondary to hypoxia secondary to cardiac arrest. 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 He may have some anoxic encephalopathy. (4) NSTEMI (non-ST elevated myocardial infarction): Code(s): I21.4 - Non-ST elevation (NSTEMI) myocardial infarction Status: Acute Assessment and Plan: Most likely NSTEMI type 2 related to the cardiac arrest after choking. Echo 03/31/20 showing normal LV systolic function with EF 55-60%. There is hypokinesis of the mid inferoseptum and mid anteroseptum and moderate pulmonary HTN (51 mmHg). Cardiology was involved in his care. (5) Shock: Code(s): R57.9 - Shock, unspecified Status: Acute Assessment and Plan: Cardiogenic shock most likely related to foreign body aspiration complicated by acute hypoxemic respiratory failure. Resolved. (6) Junctional bradycardia: Code(s): R00.1 - Bradycardia, unspecified Status: Acute Assessment and Plan: Resolved. No further events by telemetry. Beta elmer remained on hold. (7) Cardiac arrest with successful resuscitation: Code(s): I46.9 - Cardiac arrest, cause unspecified Status: Acute Assessment and Plan: Secondary to foreign body aspiration. As above. DNR at this time. (8) HTN (hypertension): Qualifiers: Hypertension type: unspecified Qualified Code(s): I10 - Essential (primary) hypertension Code(s): I10 - Essential (primary) hypertension Status: Chronic Assessment and Plan: BP monitored closely. BP remained mostly well controlled. (9) Acute on chronic kidney failure: Onset Date: Unknown Qualifiers: Acute renal failure type: unspecified Chronic kidney disease stage: stage 3 (moderate) Chronic kidney disease stage 3 subtype: unspecified whether 3a or 3b Qualified Code(s): N17.9 - Acute kidney failure, unspecified; N18.30 - Chronic kidney disease, stage 3 unspecified Code(s): N17.9 - Acute kidney failure, unspecified; N18.9 - Chronic kidney disease, unspecified Status: Acute Assessment and Plan: Cr 2.0 on admission but back to baseline. Has underlying CKD 3. (10) CAD (coronary artery disease): Onset Date: Unknown Qualifiers:
[2020-04-06 11:50] LABS: Glucose Point of Care 302 (65-105)
[2020-04-06] MEDS: INSULIN ASPART (*BKC) 100 UNITS/ML SUB-Q (12:42)
[2020-04-06 14:22] VITALS: BP 130/70; PULSE 80; RESP 20; TEMP 36.7; O2SAT 97
--- NOTE | 2020-04-06 15:10 | PC.NURSE ---
Spoke at length with patients family regarding, safe eating practices, including choking and aspiration precautions. Thickening packets sent with patient in case signs of aspirations start back up. All questions answered to family satisfaction.
== END 2020-04-06 16:00 | disposition home health service (06) | DRG 208 ==
LOC: ANHED 03-31 00:57 → ANHICU 03-31 02:47 → ANH3MED 04-03 22:02 → ANHICU 04-08 12:10
PROVIDERS: Internal Medicine; Internal Medicine Pulmonary Disease; Admitting Provider Internal Medicine; Emergency Provider Family Medicine; Visit Provider Internal Medicine
PROC: 0BJ08ZZ Inspection of Tracheobronchial Tree, Via Natural or Artificial Opening Endoscopic (ICD-10-PCS; CPT 31622; principal; 2020-04-01 11:00)
DX: T17.520A Food in bronchus causing asphyxiation, initial encounter (principal); J69.0 Pneumonitis due to inhalation of food and vomit; J96.01 Acute respiratory failure with hypoxia; I46.8 Cardiac arrest due to other underlying condition; R57.0 Cardiogenic shock; G93.41 Metabolic encephalopathy; I21.A1 Myocardial infarction type 2; N17.9 Acute kidney failure, unspecified; I13.0 Hypertensive heart and chronic kidney disease with heart failure and stage 1 through stage 4 chronic kidney disease, or unspecified chronic kidney disease; B37.89 Other sites of candidiasis; E11.22 Type 2 diabetes mellitus with diabetic chronic kidney disease; N18.30 Chronic kidney disease, stage 3 unspecified; I50.9 Heart failure, unspecified; I48.0 Paroxysmal atrial fibrillation; R00.1 Bradycardia, unspecified; E78.5 Hyperlipidemia, unspecified; I45.10 Unspecified right bundle-branch block; I25.10 Atherosclerotic heart disease of native coronary artery without angina pectoris; E05.80 Other thyrotoxicosis without thyrotoxic crisis or storm; K21.9 Gastro-esophageal reflux disease without esophagitis; Z66 Do not resuscitate; Z95.1 Presence of aortocoronary bypass graft; Z85.038 Personal history of other malignant neoplasm of large intestine; Z87.891 Personal history of nicotine dependence
CPT/HCPCS: 36415; 36556; 36600; 70450; 71045; 80048; 80053; 80061; 81001; 82375; 82565; 82805; 83050; 83735; 84100; 84484; 85025; 85027; 85610; 85730; 86850; 86900; 86901; 87070; 87205; 92526; 92610; 92611; 92950; 93005; 94003; 97110; 97116; 97161; 97165; 97530; 97535; 99291; A9270; C1751; C8929; C9113; J0171; J1265; J1644; J1815; J1940; J2250; J2543; J3010; J3370; J3475; J3480; J7030; J7040; J7060; Q9957

== ENCOUNTER 2020-04-28 10:00 | Inpatient (IN) | payer MEDICARE, OTHER, SELFPAY ==
[2020-04-28] VITALS (37 sets, daily range): BP systolic 128–204; BP diastolic 41–142; PULSE 44–127; RESP 14–31; TEMP 36.6–37.2; O2SAT 90–100; BMI 25.0
--- NOTE | ~2020-04-28 | XR_ITS ---
XR chest 1V portable DATE: 05/01/2020 06:23 INDICATION: Shortness of breath. Congestive heart failure. Aspiration pneumonia. TECHNIQUE: Portable AP chest on May 01, 2020 at 0551 hours COMPARISON: April 28, 2020 AP and lateral chest FINDINGS: Status post sternotomy. Cardiomegaly. There is pulmonary vascular congestion. There appears to be some fluid at the minor fissure versus subpleural edema. There are patchy infiltrates in the mid and to a greater extent lower lung zones; diffusion diagnosis includes pulmonary edema as well as pneumonia and aspiration. IMPRESSION: Persistent primarily lower lung zone infiltrate and/atelectasis; diffusion diagnosis incl udes aspiration pneumonia as well as bilateral pneumonia, pulmonary edema Reviewed, dictated and finalized at location A. ALK SOFTWARE DEVELOPER IMPRESSION: Persistent primarily lower lung zone infiltrate and/atelectasis; di ffusion diagnosis includes aspiration pneumonia as well as bilateral pneumonia, pulmonary edema
--- NOTE | ~2020-04-28 | XR_ITS ---
EXAMINATION: XR chest 2V DATE: 04/28/2020 10:32 INDICATION: Shortness of breath. TECHNIQUE: Frontal and lateral views of the chest were obtained. COMPARISON: Chest single view 04/03/2020, CT abdomen and pelvis 03/13/2020 FINDINGS: There are small pleural effusions. There are airspace opacities in the mid and lower lung z ones, left worse than right. No pneumothorax. Cardiomegaly is noted. Median sternotomy wires and medi astinal surgical clips are seen, likely from prior coronary artery bypass grafting. IMPRESSION: 1. Airspace opacities in the mid and lower lung zones with worsening on the left, consistent with ate lectasis versus pneumonia. 2. Small pleural effusions. 3. Cardiomegaly. Reviewed, dictated and finalized at location A. EILLANCE SYSTEMS ANALYST IMPRESSION: 1. Airspace opacities in the mid and lower lung zones with worsening on the lef t, consistent with atelectasis versus pneumonia. 2. Small pleural effusions. 3. Cardiomegaly.
--- NOTE | 2020-04-28 10:08 | ECG_ITS ---
Measurements Intervals [place] Rate: 57 P: MI: 0 QRS: -72 QRSD: 137 T: 24 QT: 460 QTc: 448 Interpretive Statements ATRIAL FIBRILLATION WITH SLOW VENTRICULAR RESPONSE VENTRICULAR PREMATURE COMPLEX RIGHT BUNDLE BRANCH BLOCK LEFT ANTERIOR FASCICULAR BLOCK BASELINE ARTIFACT- II, III, V1-V2 ABNORMAL ECG Electronically Signed On 04-28-2020 11:07:24 [employer]ENGER [employer] by Ramón Mckinney D.O.
--- NOTE | 2020-04-28 10:24 | ED.SOB ---
HPI - SOB/Dyspnea General Chief Complaint: Shortness of Breath/Dyspnea Stated Complaint: low o2 sats/decreased uo/chf Time Seen by Provider: 04/28/20 10:04 Source: patient and family Mode of arrival: wheelchair Limitations: no limitations History of Present Illness HPI Narrative: Patient is an 84-year-old male brought in by son due to low oxygen saturation at home, 82% and increasing shortness of breath. Son also states that his doctor recently increased his Lasix to 60 mg, history of CHF, but has not had any urine output for the past 24 hours. Patient was recently discharged from this hospital after being admitted due to cardiorespiratory arrest. Related Data Home Medications Medication Instructions Recorded Confirmed Januvia 50 mg PO DAILY 03/13/20 03/31/20 aspirin 81 mg PO DAILY 03/13/20 03/31/20 docusate sodium [Colace] 100 mg PO Q12H 03/13/20 03/31/20 folic acid 1 mg PO DAILY 03/13/20 03/31/20 furosemide [Lasix] 20 mg PO DAILY 03/13/20 03/31/20 pantoprazole [Protonix] 20 mg PO QAM 03/13/20 03/31/20 simvastatin 40 mg PO HS 03/13/20 03/31/20 Adult One Daily Multivitamin 1 tab-cap PO DAILY 03/14/20 03/31/20 Allergies Allergy/AdvReac Type Severity Reaction Status Date / Time No Known Allergies Allergy Unverified 03/14/20 00:21 Review of Systems Review of Systems: All systems reviewed & are unremarkable except as noted in HPI and below Constitutional: Constitutional: Denies body ache(s), Denies chills, Denies excessive sweating, Denies fatigue, Denies fever(s), Denies headache(s), Denies lethargy, Denies malaise, Denies weakness and Denies weight loss Eyes: Eyes: Denies blurry vision, Denies change in vision and Denies loss of vision ENT: Denies dizziness, Denies ear discharge, Denies headache(s), Denies lip swelling, Denies epistaxis, Denies nasal congestion, Denies neck pain, Denies throat swelling and Denies tongue swelling Cardiovascular: Cardiovascular: Denies chest pain, Denies chest pain at rest, Denies chest pain with activity, Denies diaphoresis, Denies rapid heart rate, Denies irregular heart rhythm, Denies lightheadedness and Denies palpitations Respiratory: Respiratory: Denies chest congestion, Denies cough and Denies hemoptysis Gastrointestinal: Gastrointestinal: Denies abdominal pain, Denies melena, Denies hematochezia, Denies diarrhea, Denies nausea, Denies vomiting and Denies hematemesis Musculoskeletal: Musculoskeletal: Denies abnormal gait, Denies deformity, Denies joint swelling, Denies limited range of motion, Denies neck pain and Denies numbness Neurologic: Denies Abnormal speech present, Denies abnormal gait, Denies confusion, Denies dizziness, Denies headache(s), Denies focal weakness, Denies loss of vision, Denies numbness, Denies Other visual disturbances, Denies Sensory deficit (Neuro) and Denies weakness Psychiatric: Psychiatric: Denies confusion, Denies depression, Denies auditory hallucinations, Denies homicidal ideation and Denies suicidal ideation Endocrine: Endocrine: Denies cold intolerance, Denies excessive sweating, Denies fatigue, Denies heat intolerance and Denies palpitations Hematologic/Lymphatic: Hematologic/Lymphatic: Denies easy bleeding and Denies easy bruising Allergic/Immunologic: Allergic/Immunologic: Denies lip swelling, Denies throat swelling and Denies tongue swelling PMFSH Past Medical History Medical History CAD (coronary artery disease) (Unknown) Colon cancer Congestive heart failure Diabetes (Unknown) GERD (gastroesophageal reflux disease) HTN (hypertension) Hyperlipidemia SBO (small bowel obstruction) (~02/2020) Stage 3b chronic kidney disease Subclinical hyperthyroidism Ventral hernia (Unknown) Vertigo Surgical History Surgical History History of partial colectomy Hx of CABG Family History Family History (Reviewed 04/28/20 @ 10:30 by Tyrone Meza
[2020-04-28 10:26] LABS: Basophils Absolute Auto 0.1 K/mm3 (0.0-0.1); Basophils Percent Auto 0.7 % (0.2-1.2); Eosinophils Absolute Auto 0.2 K/mm3 (0-0.3); Eosinophils Percent Auto 1.6 % (0-4.4); Hematocrit 35.8 % (42.0-52.0); Hemoglobin 12.3 g/dL (14.0-18.0); Immature Granulocyte Absolute 0.07 K/mm3 (0.00-0.031); Immature Granulocyte Percent A 0.7 % (0-0.5); Lymphocytes Percent Auto 6.8 % (18.3-44.2); Mean Corpuscular HGB Conc 34.4 g/dl (32-36); Mean Corpuscular Hemoglobin 28.5 pg (26-34); Mean Corpuscular Volume 82.9 fl (80-100); Mean Platelet Volume 11.5 fl (7.4-10.4); Monocytes Absolute Auto 0.9 K/mm3 (0.1-0.6); Monocytes Percent Auto 8.9 % (2.6-8.5); Neutrophils Absolute Auto 8.4 K/mm3 (1.3-6.7); Neutrophils Percent Auto 81.3 % (45.5-73.1); Platelet Count Result 391 k/mm3 (150-375); Red Blood Count 4.32 M/mm3 (4.6-6.20); Red Cell Distribution Width 15.8 % (11.5-14.5); White Blood Count 10.4 K/mm3 (4.5-10.0)
[2020-04-28] MEDS: FUROSEMIDE INJ 40 MG/4 ML VIAL IV PUSH (10:36)
[2020-04-28 11:09] LABS: Alveolar/Arterial O2 Gradient 35.9 mmHg; Base Excess ABG -1.3 mEq/l (+/-2.0); Carboxyhemoglobin 0.6 % THb (0-2.0); Fractional Inspired Oxygen 21 %; Methemoglobin ABG 0.2 %THb (0-1.5); Oxygen Content ABG 15.2 %vol (16.0-22.0); Oxygen Saturation ABG 91.7 % (95.0-100.0); Oxyhemoglobin 90.7 % THb (90.0-100.0); PCO2 ABG 42.1 mmHg (35.0-45.0); PO2 ABG 63.4 mmHg (80.0-100.0); PO2 FiO2 Ratio Arterial Blood 3.02 %; Reduced Hemoglobin 8.5 %THb (0-5.0); Total Hemoglobin 11.9 g/dL (12.0-18.0); pH ABG 7.373 (7.350-7.450)
[2020-04-28 11:10] LABS: Device ROOM AIR; Site Drawn LEFT BRACHIAL
[2020-04-28 11:11] LABS: Anion Gap 10 mmol/L (8-16); Blood Urea Nitrogen 29 mg/dL (9-20); Carbon Dioxide 27 mmol/L (22-30); Chloride 98 mmol/L (98-107); Estimated CRCL calculation 29 ml/min; Estimated Glomerular Filt Rate 44; Glucose 138 mg/dL (75-110); Potassium 4.1 mmol/L (3.4-5.0); Sodium 135 mmol/L (137-145)
[2020-04-28 11:20] LABS: NT Pro B Type Natriuretic Pept 14900 PG/ML (5-100)
--- NOTE | 2020-04-28 11:53 | PC.NURSE ---
PT SLEEPING, O2 SATURATION DROPPING TO 88%, PLACED ON 3L VIA NC FOR O2 SATURATION, O2 INCREASED SATURATION TO 100%.
--- NOTE | 2020-04-28 14:11 | ADMGEN ---
This patient, Mireya Mccullough, was admitted to [facility] Surg Room 315-01. Patient/family oriented to hospital policies and general routines including ID bracelet, bed and alarms, visiting hours, pain management, procedures, bathroom and other care routines, personal items, smoking policy, room service/diet, and visiting hours. Information on how to activate the Rapid Response Team has been discussed. Patient/Family are encouraged to report perceived risks to care and to ask questions if they do not understand what they are told or what they should do.
--- NOTE | 2020-04-28 15:15 | PM.IMHP ---
H&P: HPI History of Present Illness Date/Time: 04/28/20 15:15 Chief Complaint: Shortness of breath Narrative: Mireya Mccullough is a 84 year old male on 04/06/2020 was admitted due to aspiration pneumonia due to food. The patient was eating a piece of sausage and aspirated which resulted in cardiopulmonary arrest. The patient was started on antibiotics at that time and sputum cultures were negative. Sputum cultures grew out Maggie. He was placed on thickened liquids but has been evaluated by speech therapy at home and is back on regular liquids. The patient also had an echo his last admission which shows an EF of around 55% with a grade 3 diastolic dysfunction. The patient also has chronic renal failure stage 3 and has seen a snuff maker. Patient has had metabolic encephalopathy since his cardiac arrest. 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 Patient was also found to be in atrial fibrillation that time. However he has a past history of subdural hematoma and was not able to be anticoagulated. The family members decided to make him a DNR. His son and daughter are the [employer] for healthcare. Today the son brought the patient in because his oxygen level was 82%. The son also told me that when the patient falls asleep his pulse ox drops and he has an appointment to have a sleep study performed. The son went on to tell me that he is been diagnosed with obstructive sleep apnea in the past but did not wear a CPAP. The son also told me that the doctor recently increased his Lasix to 60 mg but has had a poor urinary output. His white count currently is up to 10.4 H&H is 10.3 and 35.8 which appears to be above his average. His blood sugars 138. BNP 22600. Patient's COVID testing is pending. Patient was given IV Lasix and was treated with azithromycin and Rocephin in the event that the patient would have pneumonia. However the patient is not coughing and is afebrile. Patient's EKG was read as atrial fibrillation with slow response. Patient is being admitted for observation on date of service of 04/28/2020. Review of Systems Review of Systems: All systems reviewed & are unremarkable except as noted in HPI and below Constitutional: Constitutional: Reports as per HPI and Reports no additional constitutional complaints Eyes: Eyes: Reports as per HPI and Reports no additional eye complaints ENT: Reports system reviewed and no additional complaints, except as documented and Reports Normal hearing present Cardiovascular: Cardiovascular: Reports no additional cardiovascular complaints Respiratory: Respiratory: Reports no additional respiratory complaints and Reports no additional respiratory complaints Gastrointestinal: Gastrointestinal: Reports as per HPI and Reports no additional gastrointestinal complaints Musculoskeletal: Musculoskeletal: Reports no additional musculoskeletal complaints Integumentary/Breasts: Skin/Breast: Reports system reviewed and no additional complaints, except as docu and Reports as per HPI Neurologic: Reports system reviewed and no additional complaints, except as documented, Reports as per HPI and Reports Normal hearing present Psychiatric: Psychiatric: Reports no additional psychiatric complaints and Reports as per HPI Endocrine: Endocrine: Reports no additional endocrine complaints Hematologic/Lymphatic: Hematologic/Lymphatic: Reports no additional hematologic/lymphatic complaints Allergic/Immunologic: Allergic/Immunologic: Reports no additional allergic/immunologic complaints [facility] Past Medical History Medical History (Updated 04/28/20 @ 15:46 by Susanna Mcdaniel NP) CAD (coronary artery disease) (Unknown) Colon cancer Congestive heart failure CRF (chronic renal failure) stage 3 Diabetes (Unknown) GERD (gastroesophageal reflux disease) HTN (hypertension) Hyperlipidemia Osteoarthritis Hands and feet SBO (small bowel obstruction) (~02/2020) Stage 3b c
[2020-04-28 17:34] LABS: Glucose Point of Care 121 (65-105)
[2020-04-28] MEDS: SIMVASTATIN 20 MG TABLET 40 MG PO (20:11)
[2020-04-28] MEDS: DOCUSATE SODIUM 100 MG CAPSULE PO (20:11)
[2020-04-28] MEDS: PRIMIDONE 25 MG TABLET PO (20:12)
[2020-04-28 20:54] LABS: SARS-CoV-2 RNA PCR Negative
[2020-04-28 21:28] LABS: Glucose Point of Care 173 (65-105)
[2020-04-29] VITALS (9 sets, daily range): BP systolic 130–160; BP diastolic 50–59; PULSE 53–75; RESP 16–18; TEMP 36–36.6; O2SAT 91–97
--- NOTE | 2020-04-29 04:47 | PCRCNOTE ---
Went in to check on pt's apnea link around 0200 and pt had entire unit off and sitting in his lap. No 2nd attempt was made. Pt is slightly confused.
[2020-04-29 06:57] LABS: Basophils Absolute Auto 0.1 K/mm3 (0.0-0.1); Basophils Percent Auto 0.9 % (0.2-1.2); Eosinophils Absolute Auto 0.2 K/mm3 (0-0.3); Eosinophils Percent Auto 1.7 % (0-4.4); Hematocrit 32.2 % (42.0-52.0); Immature Granulocyte Absolute 0.05 K/mm3 (0.00-0.031); Immature Granulocyte Percent A 0.5 % (0-0.5); Lymphocytes Absolute Auto 0.58 K/mm3 (0.9-3.2); Lymphocytes Percent Auto 6.2 % (18.3-44.2); Mean Corpuscular HGB Conc 34.2 g/dl (32-36); Mean Corpuscular Hemoglobin 27.8 pg (26-34); Mean Corpuscular Volume 81.5 fl (80-100); Monocytes Absolute Auto 0.9 K/mm3 (0.1-0.6); Monocytes Percent Auto 9.9 % (2.6-8.5); Neutrophils Absolute Auto 7.6 K/mm3 (1.3-6.7); Neutrophils Percent Auto 80.8 % (45.5-73.1); Platelet Count Result 341 k/mm3 (150-375); Red Blood Count 3.95 M/mm3 (4.6-6.20); Red Cell Distribution Width 15.3 % (11.5-14.5); White Blood Count 9.4 K/mm3 (4.5-10.0)
[2020-04-29 07:09] LABS: Alanine Aminotransferase 13 U/L (4-50); Albumin Level 3.3 g/dL (3.5-5.1); Alkaline Phosphatase 93 U/L (38-126); Anion Gap 6 mmol/L (8-16); Aspartate Amino Transferase 25 U/L (17-59); Bilirubin,Total 0.4 mg/dL (0.2-1.3); Blood Urea Nitrogen 24 mg/dL (9-20); Calcium 8.3 mg/dL (8.4-10.2); Carbon Dioxide 30 mmol/L (22-30); Chloride 101 mmol/L (98-107); Estimated CRCL calculation 29 ml/min; Estimated Glomerular Filt Rate 44; Glucose 109 mg/dL (75-110); Magnesium 1.4 mg/dL (1.6-2.3); Potassium 3.4 mmol/L (3.4-5.0); Sodium 137 mmol/L (137-145)
[2020-04-29 07:53] LABS: Thyroid Stimulating Hormone Reflex 0.608 uIU/mL (0.465-4.68)
[2020-04-29] MEDS: MULTIVITAMINS THERAPEUTIC TAB (*BKC) 1 TABLET PO (08:04)
[2020-04-29] MEDS: PANTOPRAZOLE SOD SESQUIHYDRATE 20 MG TAB PO (08:04)
[2020-04-29] MEDS: DOCUSATE SODIUM 100 MG CAPSULE PO ×2 (08:04→20:28)
[2020-04-29] MEDS: FOLIC ACID 1 MG TABLET PO (08:04)
[2020-04-29] MEDS: FUROSEMIDE INJ 40 MG/4 ML VIAL IV PUSH (08:05)
[2020-04-29] MEDS: ASPIRIN 81 MG ENTERIC TABLET PO (08:05)
[2020-04-29] MEDS: PRIMIDONE 25 MG TABLET PO ×2 (08:06→20:29)
[2020-04-29 10:59] LABS: Glucose Point of Care 128 (65-105)
[2020-04-29 12:48] LABS: Glucose Point of Care 206 (65-105)
[2020-04-29] MEDS: INSULIN ASPART (*BKC) 100 UNITS/ML SUB-Q (12:51)
--- NOTE | 2020-04-29 13:16 | PM.IMPN ---
Subjective Date/time seen: 04/29/20 13:16 Interval history: 84 year old male on 04/06/2020 was admitted due to aspiration pneumonia due to food. The patient was eating a piece of sausage and aspirated which resulted in cardiopulmonary arrest. Covid test was negative. Objective Data Vital Signs Vital Signs: Vital Signs - 24 hr 04/28/20 13:37 04/28/20 16:00 04/28/20 20:00 Temperature 36.8 C 37.2 C Pulse Rate 51 L 62 56 L Respiratory Rate 18 20 18 Blood Pressure 135/62 154/41 H 140/50 L Pulse Oximetry 97 94 94 04/28/20 22:22 04/29/20 00:00 04/29/20 04:00 Temperature Pulse Rate 57 L 53 L 61 Respiratory Rate Blood Pressure Pulse Oximetry 94 04/29/20 06:00 Temperature 36.6 C Pulse Rate 55 L Respiratory Rate 18 Blood Pressure 160/58 H Pulse Oximetry 91 Intake/Output Intake/Output: Intake & Output 04/26/20 04/27/20 04/28/20 04/29/20 23:59 23:59 23:59 23:59 Intake Total 780 460 Output Total 100 500 Balance 680 -40 Meds/Results Medications: Active Medications Generic Name Dose Route Start Last Admin Trade Name Freq PRN Reason Stop Dose Admin Aspirin 81 mg 04/29/20 09:00 04/29/20 08:05 Aspirin 81 Mg Enteric Tablet PO 81 mg DAILY ROCIO Administration Dextrose 12.5 gm 04/28/20 15:06 Dextrose 50% 25 Gm/50 Ml Syringe IV PUSH PRN PRN Hypoglycemia Protocol Docusate Sodium 100 mg 04/28/20 21:00 04/29/20 08:04 Docusate Sodium 100 Mg Capsule PO 100 mg Q12HR ROCIO Administration Folic Acid 1 mg 04/29/20 09:00 04/29/20 08:04 Folic Acid 1 Mg Tablet PO 1 mg DAILY ROCIO Administration Furosemide 40 mg 04/29/20 09:00 04/29/20 08:05 Furosemide Inj 40 Mg/4 Ml Vial IV PUSH 40 mg DAILY ROCIO Administration Glucagon 1 mg 04/28/20 15:06 Glucagon For Inj 1 Mg Vial IM PRN PRN Hypoglycemia Protocol Glucose 15 gm 04/28/20 15:06 Glucose Oral Gel 15 Gm Of Glucse In 37.5 Gm Tube PO PRN PRN Hypoglycemia Protocol Hydralazine HCl 10 mg 04/28/20 15:45 Hydralazine Hcl 20 Mg/Ml Vial IV PUSH Q8H PRN Blood Pressure - High Dextrose 1,000 mls @ 100 mls/hr 04/28/20 15:06 Dextrose 5% 1,000 Ml IVPB PRN PRN Hypoglycemia Protocol Insulin Aspart 2 - 5 units 04/28/20 17:00 04/29/20 12:51 Insulin Aspart (*Bkc) 100 Units/Ml SUB-Q 2 units TIDWM ROCIO Administration Protocol Multivitamins Therapeutic 1 tablet 04/29/20 09:00 04/29/20 08:04 Multivitamins Therapeutic Tab (*Bkc) PO 05/29/20 09:01 1 tablet DAILY ROCIO Administration Pantoprazole Sodium 20 mg 04/29/20 09:00 04/29/20 08:04 Pantoprazole Sod Sesquihydrate 20 Mg Tab PO 20 mg QAM ROCIO Administration Primidone 25 mg 04/28/20 21:00 04/29/20 08:06 Primidone 25 Mg Tablet PO 25 mg Q12HR ROCIO Administration Simvastatin 40 mg 04/28/20 21:00 04/28/20 20:11 Simvastatin 20 Mg Tablet PO 40 mg HS ROCIO Administration Sitagliptin Phosphate 50 mg 04/29/20 09:00 04/29/20 08:04 Sitagliptin 50 Mg Tablet PO 50 mg DAILY ROCIO Administration Radiology Results: ITS Impressions Chest X-Ray 04/28/20 10:32 IMPRESSION: 1. Airspace opacities in the mid and lower lung zones with worsening on the left, consistent with atelectasis versus pneumonia. 2. Small pleural effusions. 3. Cardiomegaly. Labs Labs: Laboratory Results - last 24 hr 04/28/20 04/28/20 04/28/20 11:17 17:26 20:14 WBC RBC Hgb Hct MCV MCH MCHC RDW Plt Count MPV Immature Gran % (Auto) Neut % (Auto) Lymph % (Auto) Meade % (Auto) Eos % (Auto) Baso % (Auto) Lymph # (Auto) Meade # (Auto) Eos # (Auto) Baso # (Auto) Abs Immat Gran (auto) Absolute Neuts (auto) Absolute Nucleated RBC Nucleated RBC % Sodium Potassium Chloride Carbon Dioxide Anion Gap BUN Creatinine Estim Creat Clear Calc Estimated GF
--- NOTE | 2020-04-29 16:34 | PM.IMPN ---
Progress Note: A&P Assessment and Plan (1) Suspected COVID-19 virus infection: Code(s): Z20.822 - Contact with and (suspected) exposure to COVID-19 Status: Inactive Assessment and Plan: Negative (2) Congestive heart failure (CHF): Qualifiers: Heart failure chronicity: acute on chronic Heart failure type: unspecified Qualified Code(s): I50.9 - Heart failure, unspecified Code(s): I50.9 - Heart failure, unspecified Status: Acute Assessment and Plan: Patient had an echo last month with grade 3 diastolic dysfunction and EF around 55-60%. continue iv lasix (3) Atrial fibrillation: Qualifiers: Atrial fibrillation type: paroxysmal Qualified Code(s): I48.0 - Paroxysmal atrial fibrillation Code(s): I48.91 - Unspecified atrial fibrillation Status: Acute Assessment and Plan: The patient cannot be 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 The patient had been on metoprolol but now is heart rate is slow in the 50s. (4) HTN (hypertension): Qualifiers: Hypertension type: unspecified Qualified Code(s): I10 - Essential (primary) hypertension Code(s): I10 - Essential (primary) hypertension Status: Chronic (5) Diabetes: Onset Date: Unknown Code(s): E11.9 - Type 2 diabetes mellitus without complications Status: Acute Assessment and Plan: Accu-Cheks AC and HS. Continue with Januvia. (6) CRF (chronic renal failure): Code(s): N18.9 - Chronic kidney disease, unspecified Status: Chronic Assessment and Plan: The patient has seen a track inspector in the past. (7) Hyperlipidemia: Code(s): E78.5 - Hyperlipidemia, unspecified Status: Chronic Assessment and Plan: Continue with Zocor. Subjective Date/time seen: 04/29/20 16:34 Interval history: 84 year old male on 04/06/2020 was admitted due to aspiration pneumonia due to food. The patient was eating a piece of sausage and aspirated which resulted in cardiopulmonary arrest. Covid test was negative. pt feels slightly sob Review of Systems Review of Systems: All systems reviewed & are unremarkable except as noted in HPI and below Exam Const: General: Physically active Chest: Chest palpation & inspection: normal inspection of the chest Resp: Effort & Inspection: normal respiratory effort Cardio: Palpation: normal PMI GI: Inspection: normal to inspection Auscultation: normal bowel sounds Back/Spine/Pelvis: Cervical Spine: cervical ROM normal Thoracic/Lumbar Spine: thoracic and lumbar spine normal to inspection Pelvis: no pain with anterior-posterior compression Skin: General skin exam: normal color Lesions: no lesions Rashes: no rashes Trauma: no lacerations or abrasions Wounds: no wounds Hair: normal Nails: normal Neuro: General: oriented to person and oriented to place Cranial nerves: Yes Normal hearing present Speech: normal speech Gait exam (Neuro): Normal gait present Motor exam (neuro): 5/5 motor strength present throughout Sensory Exam: normal sensation Extrem: General: normal to inspection Right upper extremity: normal to inspection Left upper extremity: normal to inspection Right lower extremity: normal to inspection Left lower extremity: normal to inspection Psych: Appearance: grossly normal Mental Status: mental status grossly normal Speech and movement: Normal speech and movement present Affect: normal affect Attitude: cooperative Thought process: Normal thought process present Insight: Fair insight present (Psych) Judgement: Fair judgement present (Psych) Other: Forgetful Objective Data Vital Signs Vital Signs: Vital Signs - 24 hr 04/28/20 20:00 04/28/20 22:22 04/29/20 00:00 Temperature 37.2 C Pulse Rate 56 L 57 L 53 L Respiratory Rate 18 Blood Pressure 140/50 L Pulse Oximetry 94 94 04/29/20 04:00 04/29/20 06:00 04/29/20 14:00 Temperature 36.
[2020-04-29] MEDS: SIMVASTATIN 20 MG TABLET 40 MG PO (20:28)
[2020-04-29 20:33] LABS: Glucose Point of Care 188 (65-105)
[2020-04-30] VITALS (7 sets, daily range): BP systolic 125–149; BP diastolic 47–61; PULSE 65–75; RESP 16; TEMP 36.2–36.3; O2SAT 92–98
--- NOTE | 2020-04-30 01:25 | PC.NURSE ---
Pt has been increasingly confused this shift. Pt removed his own IV, continues to remove tele leads, and tried to pull out Lovell catheter (already had the stat lock removed from his leg, that had just been changed). Pt is very pleasant, however does not understand to leave lines alone. Will attempt another IV this shift.
[2020-04-30 03:11] LABS: Glucose Point of Care 164 (65-105)
[2020-04-30 06:49] LABS: Anion Gap 6 mmol/L (8-16); Blood Urea Nitrogen 30 mg/dL (9-20); Calcium 8.7 mg/dL (8.4-10.2); Carbon Dioxide 32 mmol/L (22-30); Chloride 100 mmol/L (98-107); Estimated CRCL calculation 26 ml/min; Estimated Glomerular Filt Rate 38; Glucose 153 mg/dL (75-110); Sodium 138 mmol/L (137-145)
[2020-04-30] MEDS: ASPIRIN 81 MG ENTERIC TABLET PO (08:12)
[2020-04-30] MEDS: DOCUSATE SODIUM 100 MG CAPSULE PO ×2 (08:12→20:31)
[2020-04-30] MEDS: MULTIVITAMINS THERAPEUTIC TAB (*BKC) 1 TABLET PO (08:12)
[2020-04-30] MEDS: FUROSEMIDE INJ 40 MG/4 ML VIAL IV PUSH (08:12)
[2020-04-30] MEDS: PANTOPRAZOLE SOD SESQUIHYDRATE 20 MG TAB PO (08:12)
[2020-04-30] MEDS: PRIMIDONE 25 MG TABLET PO ×2 (08:12→20:31)
[2020-04-30] MEDS: FOLIC ACID 1 MG TABLET PO (08:12)
[2020-04-30 09:55] LABS: Glucose Point of Care 142 (65-105)
[2020-04-30 12:40] LABS: Glucose Point of Care 144 (65-105)
--- NOTE | 2020-04-30 13:21 | PM.IMPN ---
Progress Note: A&P Assessment and Plan (1) Suspected COVID-19 virus infection: Code(s): Z20.822 - Contact with and (suspected) exposure to COVID-19 Status: Inactive Assessment and Plan: Negative (2) Congestive heart failure (CHF): Qualifiers: Heart failure chronicity: acute on chronic Heart failure type: unspecified Qualified Code(s): I50.9 - Heart failure, unspecified Code(s): I50.9 - Heart failure, unspecified Status: Acute Assessment and Plan: Patient had an echo last month with grade 3 diastolic dysfunction and EF around 55-60%. continue iv lasix (3) Atrial fibrillation: Qualifiers: Atrial fibrillation type: paroxysmal Qualified Code(s): I48.0 - Paroxysmal atrial fibrillation Code(s): I48.91 - Unspecified atrial fibrillation Status: Acute Assessment and Plan: The patient cannot be 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 The patient had been on metoprolol but now is heart rate is slow in the 50s. (4) HTN (hypertension): Qualifiers: Hypertension type: unspecified Qualified Code(s): I10 - Essential (primary) hypertension Code(s): I10 - Essential (primary) hypertension Status: Chronic (5) Diabetes: Onset Date: Unknown Code(s): E11.9 - Type 2 diabetes mellitus without complications Status: Acute Assessment and Plan: Accu-Cheks AC and HS. Continue with Januvia. (6) CRF (chronic renal failure): Code(s): N18.9 - Chronic kidney disease, unspecified Status: Chronic Assessment and Plan: The patient has seen a head cleaning porter in the past. (7) Hyperlipidemia: Code(s): E78.5 - Hyperlipidemia, unspecified Status: Chronic Assessment and Plan: Continue with Zocor. (8) Pneumonia: Qualifiers: Laterality: left Lung location: lower lobe of lung Pneumonia type: due to unspecified organism Qualified Code(s): J18.9 - Pneumonia, unspecified organism Code(s): J18.9 - Pneumonia, unspecified organism Status: Acute (9) Aspiration pneumonia: Code(s): J69.0 - Pneumonitis due to inhalation of food and vomit Status: Acute Assessment and Plan: Continue patient on iv zosyn, rpt Cxr bridgett Am Subjective Date/time seen: 04/30/20 13:21 Interval history: 84 year old male on 04/06/2020 was admitted due to aspiration pneumonia due to food. The patient was eating a piece of sausage and aspirated which resulted in cardiopulmonary arrest. Covid test was negative. pt feels slightly sob and weak. working with PT today who recommends home health for the patient. 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 HENMT: Head: normal to inspection, normocephalic and atraumatic Resp: Effort & Inspection: normal respiratory effort Auscultation: rhonchi right lower Cardio: Heart sounds: S1 normal heart sound present and S2 normal heart sound present Peripheral pulses: Peripheral pulses 2+ throughout GI: Inspection: normal to inspection Auscultation: normal bowel sounds Skin: General skin exam: normal color Lesions: no lesions Rashes: no rashes Trauma: no lacerations or abrasions Wounds: no wounds Hair: normal Nails: normal Neuro: General: oriented to person and oriented to place Cranial nerves: Yes Normal hearing present Cognition (Neuro): abnormal cognition (Forgetful) Speech: normal speech Gait exam (Neuro): Normal gait present Motor exam (neuro): 5/5 motor strength present throughout Sensory Exam: normal sensation Extrem: General: normal to inspection Psych: Appearance: grossly normal Mental Status: mental status grossly normal Speech and movement: Normal speech and movement present Affect: normal affect Attitude: cooperative Thought process
[2020-04-30 17:18] LABS: Glucose Point of Care 168 (65-105)
[2020-04-30] MEDS: SIMVASTATIN 20 MG TABLET 40 MG PO (20:31)
[2020-04-30 21:27] LABS: Glucose Point of Care 144 (65-105)
[2020-05-01] VITALS (8 sets, daily range): BP systolic 114–139; BP diastolic 43–60; PULSE 63–83; RESP 16–20; TEMP 36.3–36.5; O2SAT 95–98
[2020-05-01 08:19] LABS: Glucose Point of Care 121 (65-105)
[2020-05-01] MEDS: FOLIC ACID 1 MG TABLET PO (09:25)
[2020-05-01] MEDS: MULTIVITAMINS THERAPEUTIC TAB (*BKC) 1 TABLET PO (09:25)
[2020-05-01] MEDS: FUROSEMIDE INJ 40 MG/4 ML VIAL IV PUSH (09:25)
[2020-05-01] MEDS: PRIMIDONE 25 MG TABLET PO ×2 (09:25→21:01)
[2020-05-01] MEDS: ASPIRIN 81 MG ENTERIC TABLET PO (09:25)
[2020-05-01] MEDS: DOCUSATE SODIUM 100 MG CAPSULE PO ×2 (09:25→21:01)
[2020-05-01] MEDS: PANTOPRAZOLE SOD SESQUIHYDRATE 20 MG TAB PO (09:25)
[2020-05-01 12:42] LABS: Glucose Point of Care 173 (65-105)
--- NOTE | 2020-05-01 14:18 | PM.IMPN ---
Progress Note: A&P Assessment and Plan (1) Suspected COVID-19 virus infection: Code(s): Z20.822 - Contact with and (suspected) exposure to COVID-19 Status: Inactive Assessment and Plan: Negative (2) Congestive heart failure (CHF): Qualifiers: Heart failure chronicity: acute on chronic Heart failure type: unspecified Qualified Code(s): I50.9 - Heart failure, unspecified Code(s): I50.9 - Heart failure, unspecified Status: Acute Assessment and Plan: Patient had an echo last month with grade 3 diastolic dysfunction and EF around 55-60%. continue iv lasix 05/01/20 14:18 84 year old male on 04/06/2020 was admitted due to aspiration pneumonia due to food. The patient was eating a piece of sausage and aspirated which resulted in cardiopulmonary arrest. Covid test was negative. pt feels slightly sob and weak. working with PT today who recommends home health for the patient. This time patient was brought to the emergency department as patient was desaturating and suspect patient may have pneumonia being treated with a Rocephin azithromycin, repeat chest x-ray shows persistent pneumonia however patient clinically symptoms have improved is now on room air and able to participate in physical therapy, patient with stage 3 diastolic dysfunction patient is treated with IV Lasix 40 mg q.day his urine output is improved however his creatinine rising will stop the IV switch him over to oral Lasix and monitor and further recommendation to follow (3) Atrial fibrillation: Qualifiers: Atrial fibrillation type: paroxysmal Qualified Code(s): I48.0 - Paroxysmal atrial fibrillation Code(s): I48.91 - Unspecified atrial fibrillation Status: Acute Assessment and Plan: The patient cannot be 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 The patient had been on metoprolol but now is heart rate is slow in the 50s. (4) HTN (hypertension): Qualifiers: Hypertension type: unspecified Qualified Code(s): I10 - Essential (primary) hypertension Code(s): I10 - Essential (primary) hypertension Status: Chronic (5) Diabetes: Onset Date: Unknown Code(s): E11.9 - Type 2 diabetes mellitus without complications Status: Acute Assessment and Plan: Accu-Cheks AC and HS. Continue with Ki. (6) CRF (chronic renal failure): Code(s): N18.9 - Chronic kidney disease, unspecified Status: Chronic Assessment and Plan: The patient has seen a flat surfacer in the past. (7) Hyperlipidemia: Code(s): E78.5 - Hyperlipidemia, unspecified Status: Chronic Assessment and Plan: Continue with Zocor. (8) Pneumonia: Qualifiers: Laterality: left Lung location: lower lobe of lung Pneumonia type: due to unspecified organism Qualified Code(s): J18.9 - Pneumonia, unspecified organism Code(s): J18.9 - Pneumonia, unspecified organism Status: Acute (9) Aspiration pneumonia: Code(s): J69.0 - Pneumonitis due to inhalation of food and vomit Status: Acute Assessment and Plan: Continue patient on iv zosyn, rpt Cxr bridgett Am Subjective Date/time seen: 05/01/20 14:18 84 year old male on 04/06/2020 was admitted due to aspiration pneumonia due to food. The patient was eating a piece of sausage and aspirated which resulted in cardiopulmonary arrest. Covid test was negative. pt feels slightly sob and weak. working with PT today who recommends home health for the patient. This time patient was brought to the emergency department as patient was desaturating and suspect patient may have pneumonia being treated with a Rocephin azithromycin, repeat chest x-ray shows persistent pneumonia however patient clinically symptoms have improved is now on room air and able to participate in physical therapy, patient with stage 3 diastolic dysfunction patient is treated with IV Lasix 40 mg q.day his
[2020-05-01 17:18] LABS: Glucose Point of Care 187 (65-105)
[2020-05-01] MEDS: SIMVASTATIN 20 MG TABLET 40 MG PO (21:01)
[2020-05-01 21:17] LABS: Glucose Point of Care 212 (65-105)
[2020-05-02 06:00] VITALS: BP 121/45; PULSE 72; RESP 20; TEMP 36.4; O2SAT 91
[2020-05-02 06:37] LABS: Hematocrit 30.4 % (42.0-52.0); Hemoglobin 10.3 g/dL (14.0-18.0); Mean Corpuscular HGB Conc 33.9 g/dl (32-36); Mean Corpuscular Hemoglobin 28.5 pg (26-34); Mean Platelet Volume 11.4 fl (7.4-10.4); Platelet Count Result 324 k/mm3 (150-375); Red Blood Count 3.62 M/mm3 (4.6-6.20)
[2020-05-02 06:46] LABS: Anion Gap 3 mmol/L (8-16); Blood Urea Nitrogen 34 mg/dL (9-20); Calcium 8.1 mg/dL (8.4-10.2); Carbon Dioxide 31 mmol/L (22-30); Chloride 99 mmol/L (98-107); Estimated CRCL calculation 23 ml/min; Estimated Glomerular Filt Rate 34; Glucose 144 mg/dL (75-110); Magnesium 1.5 mg/dL (1.6-2.3); Potassium 3.8 mmol/L (3.4-5.0); Sodium 133 mmol/L (137-145)
[2020-05-02] MEDS: FUROSEMIDE 40 MG TABLET PO (08:20)
[2020-05-02] MEDS: PANTOPRAZOLE SOD SESQUIHYDRATE 20 MG TAB PO (08:20)
[2020-05-02] MEDS: ASPIRIN 81 MG ENTERIC TABLET PO (08:20)
[2020-05-02] MEDS: PRIMIDONE 25 MG TABLET PO ×2 (08:20→21:30)
[2020-05-02] MEDS: MULTIVITAMINS THERAPEUTIC TAB (*BKC) 1 TABLET PO (08:20)
[2020-05-02] MEDS: FOLIC ACID 1 MG TABLET PO (08:20)
[2020-05-02] MEDS: DOCUSATE SODIUM 100 MG CAPSULE PO ×2 (08:20→21:30)
[2020-05-02 09:55] LABS: Glucose Point of Care 132 (65-105)
--- NOTE | 2020-05-02 10:19 | PM.IMPN ---
Progress Note: A&P Assessment and Plan (1) Suspected COVID-19 virus infection: Code(s): Z20.822 - Contact with and (suspected) exposure to COVID-19 Status: Inactive Assessment and Plan: Negative (2) Congestive heart failure (CHF): Qualifiers: Heart failure chronicity: acute on chronic Heart failure type: unspecified Qualified Code(s): I50.9 - Heart failure, unspecified Code(s): I50.9 - Heart failure, unspecified Status: Acute Assessment and Plan: Patient had an echo last month with grade 3 diastolic dysfunction and EF around 55-60%. continue iv lasix 05/02/20 10:19 84 year old male on 04/06/2020 was admitted due to aspiration pneumonia due to food. The patient was eating a piece of sausage and aspirated which resulted in cardiopulmonary arrest. Covid test was negative. pt feels slightly sob and weak. working with PT today who recommends home health for the patient. This time patient was brought to the emergency department as patient was desaturating and suspect patient may have pneumonia being treated with a Rocephin azithromycin, repeat chest x-ray shows persistent pneumonia however patient clinically symptoms have improved is now on room air and able to participate in physical therapy, patient with stage 3 diastolic dysfunction patient is treated with IV Lasix 40 mg q.day his urine output is improved however his creatinine rising will stop the IV switch him over to oral Lasix and monitor and further recommendation to follow. 05/02 patient IV Lasix was switched to p.o. today, patient states is feeling better not a short of breath, patient is sitting in a chair eating his breakfast, denies any chest shortness of breath palpitation fever or chills, if remains clinically stable on oral Lasix patient can be discharged home tomorrow. 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 The patient had been on metoprolol but now is heart rate is slow in the 50s. (4) HTN (hypertension): Qualifiers: Hypertension type: unspecified Qualified Code(s): I10 - Essential (primary) hypertension Code(s): I10 - Essential (primary) hypertension Status: Chronic (5) Diabetes: Onset Date: Unknown Code(s): E11.9 - Type 2 diabetes mellitus without complications Status: Acute Assessment and Plan: Accu-Cheks AC and HS. Continue with Januvia. (6) CRF (chronic renal failure): Code(s): N18.9 - Chronic kidney disease, unspecified Status: Chronic Assessment and Plan: The patient has seen a conveyor weigher operator in the past. (7) Hyperlipidemia: Code(s): E78.5 - Hyperlipidemia, unspecified Status: Chronic Assessment and Plan: Continue with Zocor. (8) Pneumonia: Qualifiers: Laterality: left Lung location: lower lobe of lung Pneumonia type: due to unspecified organism Qualified Code(s): J18.9 - Pneumonia, unspecified organism Code(s): J18.9 - Pneumonia, unspecified organism Status: Acute (9) Aspiration pneumonia: Code(s): J69.0 - Pneumonitis due to inhalation of food and vomit Status: Acute Assessment and Plan: Continue patient on iv zosyn, rpt Cxr bridgett Am Subjective Date/time seen: 05/02/20 10:19 84 year old male on 04/06/2020 was admitted due to aspiration pneumonia due to food. The patient was eating a piece of sausage and aspirated which resulted in cardiopulmonary arrest. Covid test was negative. pt feels slightly sob and weak. working with PT today who recommends home health for the patient. This time patient was brought to the emergency department as patient was desaturating and suspect patient ma
[2020-05-02 12:15] LABS: Glucose Point of Care 157 (65-105)
[2020-05-02 14:00] VITALS: BP 132/45; PULSE 74; RESP 16; TEMP 36.6; O2SAT 96
[2020-05-02 17:50] LABS: Glucose Point of Care 167 (65-105)
[2020-05-02 20:18] LABS: Glucose Point of Care 191 (65-105)
[2020-05-02] MEDS: SIMVASTATIN 20 MG TABLET 40 MG PO (21:30)
[2020-05-02 22:00] VITALS: BP 118/96; PULSE 75; RESP 18; TEMP 36.4; O2SAT 96
[2020-05-03 05:38] VITALS: BP 140/67; PULSE 76; RESP 18; TEMP 36.8; O2SAT 90
[2020-05-03 06:09] LABS: Hematocrit 32.7 % (42.0-52.0); Mean Corpuscular HGB Conc 33.6 g/dl (32-36); Mean Corpuscular Hemoglobin 27.6 pg (26-34); Mean Corpuscular Volume 82.2 fl (80-100); Mean Platelet Volume 10.8 fl (7.4-10.4); Platelet Count Result 303 k/mm3 (150-375); Red Blood Count 3.98 M/mm3 (4.6-6.20); Red Cell Distribution Width 15.6 % (11.5-14.5); White Blood Count 8.2 K/mm3 (4.5-10.0)
[2020-05-03 06:31] LABS: Anion Gap 4 mmol/L (8-16); Blood Urea Nitrogen 30 mg/dL (9-20); Calcium 8.7 mg/dL (8.4-10.2); Carbon Dioxide 33 mmol/L (22-30); Chloride 99 mmol/L (98-107); Estimated CRCL calculation 21 ml/min; Estimated Glomerular Filt Rate 30; Glucose 166 mg/dL (75-110); Magnesium 1.5 mg/dL (1.6-2.3); Potassium 3.6 mmol/L (3.4-5.0); Sodium 136 mmol/L (137-145)
[2020-05-03 08:37] LABS: Glucose Point of Care 146 (65-105)
[2020-05-03] MEDS: FUROSEMIDE 40 MG TABLET PO (08:40)
[2020-05-03] MEDS: FOLIC ACID 1 MG TABLET PO (08:40)
[2020-05-03] MEDS: MULTIVITAMINS THERAPEUTIC TAB (*BKC) 1 TABLET PO (08:40)
[2020-05-03] MEDS: ASPIRIN 81 MG ENTERIC TABLET PO (08:40)
[2020-05-03] MEDS: PRIMIDONE 25 MG TABLET PO ×2 (08:40→20:41)
[2020-05-03] MEDS: PANTOPRAZOLE SOD SESQUIHYDRATE 20 MG TAB PO (08:40)
[2020-05-03] MEDS: DOCUSATE SODIUM 100 MG CAPSULE PO ×2 (08:40→20:41)
[2020-05-03 12:19] LABS: Glucose Point of Care 199 (65-105)
--- NOTE | 2020-05-03 13:09 | PM.IMPN ---
Progress Note: A&P Assessment and Plan (1) Suspected COVID-19 virus infection: Code(s): Z20.822 - Contact with and (suspected) exposure to COVID-19 Status: Inactive Assessment and Plan: Negative (2) Congestive heart failure (CHF): Qualifiers: Heart failure chronicity: acute on chronic Heart failure type: unspecified Qualified Code(s): I50.9 - Heart failure, unspecified Code(s): I50.9 - Heart failure, unspecified Status: Acute Assessment and Plan: Patient had an echo last month with grade 3 diastolic dysfunction and EF around 55-60%. continue iv lasix 05/03/20 13:09 84 year old male on 04/06/2020 was admitted due to aspiration pneumonia due to food. The patient was eating a piece of sausage and aspirated which resulted in cardiopulmonary arrest. Covid test was negative. pt feels slightly sob and weak. working with PT today who recommends home health for the patient. This time patient was brought to the emergency department as patient was desaturating and suspect patient may have pneumonia being treated with a Rocephin azithromycin, repeat chest x-ray shows persistent pneumonia however patient clinically symptoms have improved is now on room air and able to participate in physical therapy, patient with stage 3 diastolic dysfunction patient is treated with IV Lasix 40 mg q.day his urine output is improved however his creatinine rising will stop the IV switch him over to oral Lasix and monitor and further recommendation to follow. 05/02 patient IV Lasix was switched to p.o. today, patient states is feeling better not a short of breath, patient is sitting in a chair eating his breakfast, denies any chest shortness of breath palpitation fever or chills, if remains clinically stable on oral Lasix patient can be discharged home tomorrow. 05/03 patient IV Lasix was switched to p.o. 40mg on 05/02 patient clinical symptoms are stable and is able to ambulate with physical therapy without any difficulty however patient creatinine is rising to 2.1 from 1.7 will hold PO lasix and monitor. 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 The patient had been on metoprolol but now is heart rate is slow in the 50s. (4) HTN (hypertension): Qualifiers: Hypertension type: unspecified Qualified Code(s): I10 - Essential (primary) hypertension Code(s): I10 - Essential (primary) hypertension Status: Chronic (5) Diabetes: Onset Date: Unknown Code(s): E11.9 - Type 2 diabetes mellitus without complications Status: Acute Assessment and Plan: Accu-Cheks AC and HS. Continue with Januvia. (6) CRF (chronic renal failure): Code(s): N18.9 - Chronic kidney disease, unspecified Status: Chronic Assessment and Plan: The patient has seen a clerk typist in the past. (7) Hyperlipidemia: Code(s): E78.5 - Hyperlipidemia, unspecified Status: Chronic Assessment and Plan: Continue with Zocor. (8) Pneumonia: Qualifiers: Laterality: left Lung location: lower lobe of lung Pneumonia type: due to unspecified organism Qualified Code(s): J18.9 - Pneumonia, unspecified organism Code(s): J18.9 - Pneumonia, unspecified organism Status: Acute (9) Aspiration pneumonia: Code(s): J69.0 - Pneumonitis due to inhalation of food and vomit Status: Acute Assessment and Plan: Continue patient on iv zosyn, rpt Cxr bridgett Am Subjective Date/time seen: 05/03/20 13:09 84 year old male on 04/06/2020 was admitted due to aspiration pneumonia due to food. The patien
[2020-05-03 15:34] VITALS: BP 138/48; PULSE 93; RESP 20; TEMP 36.5; O2SAT 95
[2020-05-03 17:16] LABS: Glucose Point of Care 229 (65-105)
[2020-05-03] MEDS: INSULIN ASPART (*BKC) 100 UNITS/ML SUB-Q (18:15)
[2020-05-03 20:00] VITALS: O2SAT 95
[2020-05-03] MEDS: SIMVASTATIN 20 MG TABLET 40 MG PO (20:41)
[2020-05-03 21:49] LABS: Glucose Point of Care 159 (65-105)
[2020-05-03 22:00] VITALS: BP 150/60; PULSE 66; RESP 18; TEMP 36.6; O2SAT 97
[2020-05-04 06:00] VITALS: BP 132/50; PULSE 83; RESP 18; TEMP 36.6; O2SAT 92
[2020-05-04 06:40] LABS: Anion Gap 5 mmol/L (8-16); Blood Urea Nitrogen 30 mg/dL (9-20); Calcium 8.8 mg/dL (8.4-10.2); Carbon Dioxide 34 mmol/L (22-30); Chloride 99 mmol/L (98-107); Estimated CRCL calculation 22 ml/min; Estimated Glomerular Filt Rate 32; Glucose 126 mg/dL (75-110); Hematocrit 30.9 % (42.0-52.0); Hemoglobin 10.2 g/dL (14.0-18.0); Magnesium 1.5 mg/dL (1.6-2.3); Mean Corpuscular Hemoglobin 27.6 pg (26-34); Mean Corpuscular Volume 83.7 fl (80-100); Platelet Count Result 267 k/mm3 (150-375); Potassium 3.3 mmol/L (3.4-5.0); Red Blood Count 3.69 M/mm3 (4.6-6.20); Red Cell Distribution Width 15.8 % (11.5-14.5); Sodium 138 mmol/L (137-145); White Blood Count 7.9 K/mm3 (4.5-10.0)
[2020-05-04 08:15] LABS: Glucose Point of Care 108 (65-105)
[2020-05-04] MEDS: ASPIRIN 81 MG ENTERIC TABLET PO (08:28)
[2020-05-04] MEDS: DOCUSATE SODIUM 100 MG CAPSULE PO (08:28)
[2020-05-04] MEDS: PRIMIDONE 25 MG TABLET PO (08:32)
[2020-05-04] MEDS: MULTIVITAMINS THERAPEUTIC TAB (*BKC) 1 TABLET PO (08:32)
[2020-05-04] MEDS: PANTOPRAZOLE SOD SESQUIHYDRATE 20 MG TAB PO (08:32)
[2020-05-04] MEDS: FOLIC ACID 1 MG TABLET PO (08:32)
[2020-05-04] MEDS: POTASSIUM CHLORIDE 20 MEQ TABLET 40 MEQ PO (08:40)
[2020-05-04] MEDS: FUROSEMIDE 40 MG TABLET PO (12:46)
[2020-05-04] MEDS: INSULIN ASPART (*BKC) 100 UNITS/ML SUB-Q (12:50)
[2020-05-04 12:55] LABS: Glucose Point of Care 224 (65-105)
--- NOTE | 2020-05-04 13:08 | PM.DS ---
DS: Admitting Diagnosis Admitting Diagnosis Admitting Diagnosis: Chief Complaint: Shortness of breath DS: Discharge Diagnosis Discharge Diagnosis (1) Suspected COVID-19 virus infection: Code(s): Z20.822 - Contact with and (suspected) exposure to COVID-19 Status: Inactive Assessment and Plan: Negative (2) Congestive heart failure (CHF): Qualifiers: Heart failure chronicity: acute on chronic Heart failure type: unspecified Qualified Code(s): I50.9 - Heart failure, unspecified Code(s): I50.9 - Heart failure, unspecified Status: Acute Assessment and Plan: Patient had an echo last month with grade 3 diastolic dysfunction and EF around 55-60%. continue iv lasix 05/03/20 13:09 84 year old male on 04/06/2020 was admitted due to aspiration pneumonia due to food. The patient was eating a piece of sausage and aspirated which resulted in cardiopulmonary arrest. Covid test was negative. pt feels slightly sob and weak. working with PT today who recommends home health for the patient. This time patient was brought to the emergency department as patient was desaturating and suspect patient may have pneumonia being treated with a Rocephin azithromycin, repeat chest x-ray shows persistent pneumonia however patient clinically symptoms have improved is now on room air and able to participate in physical therapy, patient with stage 3 diastolic dysfunction patient is treated with IV Lasix 40 mg q.day his urine output is improved however his creatinine rising will stop the IV switch him over to oral Lasix and monitor and further recommendation to follow. 05/02 patient IV Lasix was switched to p.o. today, patient states is feeling better not a short of breath, patient is sitting in a chair eating his breakfast, denies any chest shortness of breath palpitation fever or chills, if remains clinically stable on oral Lasix patient can be discharged home tomorrow. 05/03 patient IV Lasix was switched to p.o. 40mg on 05/02 patient clinical symptoms are stable and is able to ambulate with physical therapy without any difficulty however patient creatinine is rising to 2.1 from 1.7 will hold PO lasix and monitor. 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 The patient had been on metoprolol but now is heart rate is slow in the 50s. (4) HTN (hypertension): Qualifiers: Hypertension type: unspecified Qualified Code(s): I10 - Essential (primary) hypertension Code(s): I10 - Essential (primary) hypertension Status: Chronic (5) Diabetes: Onset Date: Unknown Code(s): E11.9 - Type 2 diabetes mellitus without complications Status: Acute Assessment and Plan: Accu-Cheks AC and HS. Continue with Januvia. (6) CRF (chronic renal failure): Code(s): N18.9 - Chronic kidney disease, unspecified Status: Chronic Assessment and Plan: The patient has seen a department specialist in the past. (7) Hyperlipidemia: Code(s): E78.5 - Hyperlipidemia, unspecified Status: Chronic Assessment and Plan: Continue with Zocor. (8) Pneumonia: Qualifiers: Laterality: left Lung location: lower lobe of lung Pneumonia type: due to unspecified organism Qualified Code(s): J18.9 - Pneumonia, unspecified organism Code(s): J18.9 - Pneumonia, unspecified organism Status: Acute (9) Aspiration pneumonia: Code(s): J69.0 - Pneumonitis due to inhalation of food and vomit Status: Acute Assessment and Plan: Continue patient on iv zosyn, rpt Cxr bridgett Am DS: Summary Hospital Course
[2020-05-04 14:00] VITALS: BP 153/55; PULSE 70; RESP 20; TEMP 36.4; O2SAT 98
== END 2020-05-04 16:40 | disposition home health service (06) | DRG 177 ==
LOC: ANHED 12:01 → ANH3MEDSUR 12:49
PROVIDERS: Nurse Practitioner; Admitting Provider Family Medicine; Emergency Provider Emergency Medicine; Visit Provider Family Medicine
DX: J69.0 Pneumonitis due to inhalation of food and vomit (principal); I50.33 Acute on chronic diastolic (congestive) heart failure; I13.0 Hypertensive heart and chronic kidney disease with heart failure and stage 1 through stage 4 chronic kidney disease, or unspecified chronic kidney disease; E11.22 Type 2 diabetes mellitus with diabetic chronic kidney disease; N18.32 Chronic kidney disease, stage 3b; E78.5 Hyperlipidemia, unspecified; Z20.822 Contact with and (suspected) exposure to COVID-19; I25.10 Atherosclerotic heart disease of native coronary artery without angina pectoris; K21.9 Gastro-esophageal reflux disease without esophagitis; Z85.038 Personal history of other malignant neoplasm of large intestine; Z95.1 Presence of aortocoronary bypass graft; Z87.891 Personal history of nicotine dependence; Z66 Do not resuscitate
CPT/HCPCS: 36415; 36600; 71045; 71046; 80048; 80053; 82375; 82805; 82948; 83050; 83735; 83880; 84443; 85025; 85027; 93005; 94762; 96365; 96367; 96375; 96376; 97110; 97116; 97161; 97165; 97530; 97535; 99285; A9270; C9803; G0378; J0456; J0696; J1815; J1940; J2543; U0003; U0005

== ENCOUNTER 2020-05-06 13:27 | Outpatient (NON) | payer MEDICARE, OTHER, SELFPAY ==
[2020-05-06 17:33] LABS: Anion Gap 9 mmol/L (8-16); Blood Urea Nitrogen 32 mg/dL (9-20); Calcium 9.3 mg/dL (8.4-10.2); Carbon Dioxide 32 mmol/L (22-30); Chloride 93 mmol/L (98-107); Estimated Glomerular Filt Rate 36; Glucose 162 mg/dL (75-110); Potassium 4.2 mmol/L (3.4-5.0); Sodium 134 mmol/L (137-145)
== END 2020-05-06 13:28 ==
PROVIDERS: Visit Provider Internal Medicine
DX: I25.10 Atherosclerotic heart disease of native coronary artery without angina pectoris (principal)
CPT/HCPCS: 80048

== ENCOUNTER 2020-05-18 11:21 | Outpatient (NON) | payer MEDICARE, OTHER, SELFPAY ==
[2020-05-18 13:04] LABS: Anion Gap 7 mmol/L (8-16); Blood Urea Nitrogen 50 mg/dL (9-20); Calcium 8.7 mg/dL (8.4-10.2); Carbon Dioxide 31 mmol/L (22-30); Chloride 100 mmol/L (98-107); Estimated Glomerular Filt Rate 30; Glucose 110 mg/dL (75-110); Potassium 4.2 mmol/L (3.4-5.0); Sodium 138 mmol/L (137-145)
== END 2020-05-18 11:22 ==
PROVIDERS: Visit Provider Internal Medicine
DX: I50.9 Heart failure, unspecified (principal); N18.9 Chronic kidney disease, unspecified
CPT/HCPCS: 80048

== ENCOUNTER 2020-06-02 12:14 | Outpatient (NON) | payer MEDICARE, OTHER, SELFPAY ==
[2020-06-02 12:39] LABS: Anion Gap 6 mmol/L (8-16); Blood Urea Nitrogen 64 mg/dL (9-20); Calcium 8.9 mg/dL (8.4-10.2); Carbon Dioxide 33 mmol/L (22-30); Chloride 98 mmol/L (98-107); Estimated Glomerular Filt Rate 27; Glucose 134 mg/dL (75-110); Potassium 3.9 mmol/L (3.4-5.0); Sodium 137 mmol/L (137-145)
== END 2020-06-02 12:15 ==
DX: I50.31 Acute diastolic (congestive) heart failure (principal)
CPT/HCPCS: 80048

== ENCOUNTER 2021-04-18 09:54 | Inpatient (IN) | payer MEDICARE, OTHER, SELFPAY ==
[2021-04-18] VITALS (15 sets, daily range): BP systolic 99–155; BP diastolic 45–117; PULSE 67–96; RESP 6–26; TEMP 36.5; O2SAT 98–100; BMI 22.9
--- NOTE | ~2021-04-18 | US_ITS ---
EXAMINATION: US venous doppler [facility] DATE: 04/20/2021 15:13 INDICATION: Syncope. Right ventricular enlargement. Elevated d-dimer. TECHNIQUE: Grayscale ultrasound images without and with compression and Doppler ultrasound images of the bilateral lower extremity veins were obtained. COMPARISON: None. FINDINGS: The visualized portions of right common femoral vein, profunda (deep) femoral vein, femoral vein, pop liteal vein, posterior tibial veins, peroneal veins, gastrocnemius vein and greater saphenous vein ou tflow are patent. 5.2 x 1.8 x 2.5 cm Loco cyst at the right popliteal fossa. The visualized portions of left common femoral vein, profunda femoral vein, femoral vein, popliteal v ein, posterior tibial veins, peroneal veins, gastrocnemius vein and greater saphenous vein outflow ar e patent. IMPRESSION: 1. No deep venous thrombosis in either lower limb. 2. Moderate-sized right Loco's cyst. Reviewed, dictated and finalized at location A. WELL SERVICES SUPERVISOR
--- NOTE | ~2021-04-18 | XR_ITS ---
EXAMINATION: XR chest 1V portable DATE: 04/18/2021 11:13 INDICATION: Transient level of awareness TECHNIQUE: frontal view of the chest was obtained. COMPARISON: 05/01/2020 FINDINGS: Again seen are mild opacities in the bilateral mid and lower lung zones. No pneumothorax or definitiv e pleural effusion. Cardiomegaly. Median sternotomy wires and mediastinal surgical clips are seen, tram hope from prior coronary artery bypass grafting. Left pectoral implantable cardiac rn. Plate and screw fixation for lower cervical anterior spinal fusion. There are bridging osteophytes at multiple levels in the spine, consistent with diffuse idiopathic skeletal hyperostosis (DISH). IMPRESSION: 1. Opacities in the bilateral mid and lower lung zones which could represent pneumonia, pulmonary eleazar ma, atelectasis or some combination thereof. 2. Cardiomegaly. Reviewed, dictated and finalized at location A. ER REPAIRER IMPRESSION: 1. Opacities in the bilateral mid and lower lung zones which could represent pn eumonia, pulmonary edema, atelectasis or some combination thereof. 2. Cardiomegaly.
--- NOTE | ~2021-04-18 | CT_ITS ---
EXAMINATION: CT brain wo con DATE: 04/18/2021 10:36 INDICATION: Syncope. Altered mental status. TECHNIQUE: Computed tomography (CT) of the head was performed without intravenous contrast. Sagittal and coronal reconstructions were performed. The mA was adjusted according to patient size. Iterative reconstruction technique was employed. The dose-length product was 605.33 mGy-cm. COMPARISON: head CT dated 03/30/2020 FINDINGS: Small old lacunar infarcts at the bilateral thalami. The previously seen small old lacunar infarct at the central nazia is partially obscured by streak artifact in the current study. Again seen is extens luke scattered white matter hypoattenuation consistent with chronic small vessel ischemic disease. No acute intracranial hemorrhage, acute infarction or abnormal extra axial fluid collection. Symmetric p rominence of the sulci and ventricles consistent with moderate age-appropriate diffuse cerebral volum e loss. No mass/mass effect. Changes of bilateral intraocular lens replacement. The orbits, paranasal sinuses and mastoid air cells are normal. Intracranial calcified cerebral atherosclerosis is noted. IMPRESSION: 1. No acute intracranial process. 2. 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 3. Age-related changes including moderate diffuse on loss and extensive scattered white matter hypoat tenuation consistent with chronic small vessel ischemic disease. Reviewed, dictated and finalized at location A. MA MANAGER IMPRESSION: 1. No acute intracranial process. 2. 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 3. Age-related changes including moderate diffuse on loss and extensive scatter ed white matter hypoattenuation consistent with chronic small vessel ischemic d isease.
--- NOTE | ~2021-04-18 | NM_ITS ---
EXAMINATION: NM pulmonary perfusion EXAM DATE: 04/20/2021 17:17 INDICATION: Syncopal episode, SOB, RV enlargement, r/o PE TECHNIQUE: A perfusion lung scan was performed. The patient was injected with 5 mCi technetium 99m M AA and imaged. The Modified PIOPED 2 criteria used for interpretation of this perfusion only study, w ith 3 possible interpretations (PE present, PE absent, nondiagnostic) based on findings present, and correlated with a recent chest x-ray. More specifically, a high probability scan will be interpreted as pulmonary embolism present. A normal or near normal scan will be interpreted as pulmonary embolism absent. And finally an intermediate probability scan will be interpreted as nondiagnostic. Correlat ion is made to chest x-ray same date. FINDINGS: There is right lower lobe posterior segmental perfusion defect. Matched left lower lobe seg mental defects correlating to airspace disease. Intermediate probability pulmonary embolism. IMPRESSION: Nondiagnostic perfusion scan. Reviewed, dictated and finalized at location G. UMER EDUCATION SPECIALIST
--- NOTE | ~2021-04-18 | XR_ITS ---
EXAMINATION: XR chest 2V EXAM DATE: 04/20/2021 15:13 INDICATION: Check PNA vs CHF, sob TECHNIQUE: Frontal and lateral projections of the chest obtained and reviewed. Comparison is made to prior examination from 04/18/2021. FINDINGS: Again there is cardiomegaly and pulmonary vascular congestion. There are small to moderate bilateral subpulmonic pleural effusions. There is moderate amount of left basilar, smaller amount of right-sided airspace disease consistent with or edema or pneumonia. Some additional atelectasis. Kimani rnotomy wires are present without findings to suggest sternal dehiscence. There are bony degenerative changes. IMPRESSION: Cardiomegaly, congestion, bilateral edema or pneumonia unchanged. Small to moderate pleu ral effusions. Reviewed, dictated and finalized at location G. OR SQL DEVELOPER IMPRESSION: Cardiomegaly, congestion, bilateral edema or pneumonia unchanged. Small to moderate pleural effusions.
--- NOTE | ~2021-04-18 | US_ITS ---
EXAMINATION: US carotid duplex BI DATE: 04/19/2021 10:37 INDICATION: Syncope TECHNIQUE: Grayscale, color Doppler, and pulsed Doppler images of the cervical carotid arteries were obtained. The degree of vessel stenosis is placed in one of the following categories: normal, <50%, 5 0-69%, >=70% but less than near-occlusion, near-occlusion, or total occlusion. Note that percent sten osis relative to normal distal artery lumen diameter is indirectly measured from velocity measurement s as described by Marcio, et al. Radiology 2003; 229:340-346. COMPARISON: None. FINDINGS: RIGHT: The right common carotid artery (CCA) peak systolic velocity (PSV) is 57 cm/s. The right internal car otid artery (ICA) PSV is 75 cm/s. The right ICA end-diastolic velocity (EDV) is 11 cm/s. The right IC A/CCA PSV ratio is 1.3. Grayscale and color Doppler images yield an estimate of <50% diameter reducti on from plaque in the ICA. The external carotid artery (ECA) PSV is 70 cm/s. There is antegrade flow in the right vertebral artery. LEFT: The left CCA PSV is 68 cm/s. The left ICA PSV is 62 cm/s. The left ICA EDV is 7 cm/s. The left ICA/CC A PSV ratio is 0.9. Grayscale and color Doppler images yield an estimate of <50% diameter reduction f rom plaque in the ICA. The ECA PSV is 97 cm/s. There is antegrade flow in the left vertebral artery. IMPRESSION: 1. <50% stenosis in the right internal carotid artery. 2. <50% stenosis in the left internal carotid artery. Reviewed, dictated and finalized at location A. [employer]
--- NOTE | 2021-04-18 10:20 | ECG_ITS ---
Measurements Intervals [place] Rate: 95 P: 256 SD: 212 QRS: 103 QRSD: 162 T: -71 QT: 380 QTc: 478 Interpretive Statements ELECTRONIC VENTRICULAR PACEMAKER NO FURTHER INTERPRETATION IS POSSIBLE ATYPICAL ECG Electronically Signed On 04-18-2021 10:28:50 INTERIOR DESIGN CONSULTANT by Ramón Mckinney D.O.
--- NOTE | 2021-04-18 10:24 | ED.GENADULT ---
HPI - General Adult General Chief complaint: Syncope Stated complaint: Syncopal episode Time Seen by Provider: 04/18/21 10:05 Source: patient, family and RN notes reviewed History of Present Illness HPI narrative: Patient is a 85 y/o male brought in by EMS for unresponsive episodes. Son in law states that he received a call from [place] that patient had his eyes rolled back and not answering question. This occurred less than 1 hour ago. There is no known alleviating or exacerbating factor. Patient is currently awake and answering questions. However, he does not recall what happened and does not know why he is here. He is poor historian. Related Data Home Medications Medication Instructions Recorded Confirmed Januvia 50 mg PO DAILY 03/13/20 04/28/20 aspirin 81 mg PO DAILY 03/13/20 04/28/20 docusate sodium [Colace] 100 mg PO Q12H 03/13/20 04/28/20 folic acid 1 mg PO DAILY 03/13/20 04/28/20 furosemide [Lasix] 20 mg PO DAILY 03/13/20 04/28/20 pantoprazole [Protonix] 20 mg PO QAM 03/13/20 04/28/20 simvastatin 40 mg PO HS 03/13/20 04/28/20 Adult One Daily Multivitamin 1 tab-cap PO DAILY 03/14/20 04/28/20 Allergies Allergy/AdvReac Type Severity Reaction Status Date / Time No Known Allergies Allergy Verified 04/28/20 14:24 Review of Systems Review of Systems: ROS unobtainable: Yes unobtainable due to mental status PMFSH Past Medical History Medical History (Updated 04/18/21 @ 15:27 by Gabrielle Yuan MD) CAD (coronary artery disease) (Unknown) Colon cancer Congestive heart failure CRF (chronic renal failure) stage 3 Diabetes (Unknown) GERD (gastroesophageal reflux disease) HTN (hypertension) Hyperlipidemia Osteoarthritis Hands and feet Pacemaker Paroxysmal A-fib SBO (small bowel obstruction) (~02/2020) Stage 3b chronic kidney disease Subclinical hyperthyroidism Ventral hernia (Unknown) Vertigo Surgical History Surgical History History of partial colectomy History of tonsillectomy and adenoidectomy Hx of CABG Five vessel Family History Family History Father Cancer Mother Diabetes mellitus Sibling Heart attack Cancer Social History Social History (Updated 04/18/21 @ 13:31 by Susanna Mcdaniel NP) Social History: The patient is and he lives with his daughter and son-in-law. The patient is a DNR his son-in-law Donal Paredes is his durable power united [place] attorney for healthcare. The patient had 4 children. 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 Patient smoked for brief period time for approximately 2 years back in the 60s. 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) Exam Const: General: no acute distress and well developed Orientation/consciousness: oriented to person, oriented to place and confusion HENMT: Head: normocephalic Ears: external ears normal General nose exam: Normal external nose present Eyes: General: appearance normal, both eyes and all related structures Conjunctivae: conjunctivae normal Neck: Neck: normal visual inspection and full ROM Chest: Chest palpation & inspection: normal inspection of the chest and no tenderness Resp: Effort & Inspection: normal respiratory effort Auscultation: clear to auscultation bilaterally Cardio: Rate: regular rate Rhythm: regular rhythm GI: GI Palp: No abdominal tenderness and Yes Soft to palpation Skin: General skin exam: normal color and turgor normal Neuro: General: oriented to person, oriented to place and confusion Extrem: General: normal to inspection, full ROM and no
[2021-04-18 11:18] LABS: Basophils Absolute Auto 0.1 K/mm3 (0.0-0.1); Basophils Percent Auto 0.7 % (0.2-1.2); Eosinophils Absolute Auto 0.1 K/mm3 (0-0.3); Eosinophils Percent Auto 1.5 % (0-4.4); Hematocrit 30.5 % (42.0-52.0); Hemoglobin 10.1 g/dL (14.0-18.0); Immature Granulocyte Absolute 0.03 K/mm3 (0.00-0.031); Immature Granulocyte Percent A 0.4 % (0-0.5); Lymphocytes Absolute Auto 0.39 K/mm3 (0.9-3.2); Lymphocytes Percent Auto 4.6 % (18.3-44.2); Mean Corpuscular HGB Conc 33.1 g/dl (32-36); Mean Corpuscular Hemoglobin 27.4 pg (26-34); Mean Corpuscular Volume 82.9 fl (80-100); Mean Platelet Volume 10.6 fl (7.4-10.4); Monocytes Absolute Auto 0.9 K/mm3 (0.1-0.6); Monocytes Percent Auto 10.3 % (2.6-8.5); Neutrophils Absolute Auto 6.9 K/mm3 (1.3-6.7); Neutrophils Percent Auto 82.5 % (45.5-73.1); Platelet Count Result 252 k/mm3 (150-375); Red Blood Count 3.68 M/mm3 (4.6-6.20); Red Cell Distribution Width 17.5 % (11.5-14.5); White Blood Count 8.4 K/mm3 (4.5-10.0)
[2021-04-18 11:22] LABS: Alanine Aminotransferase 18 U/L (4-50); Albumin Level 3.7 g/dL (3.5-5.1); Alkaline Phosphatase 145 U/L (38-126); Anion Gap 5 mmol/L (8-16); Aspartate Amino Transferase 35 U/L (17-59); Bilirubin,Total 0.5 mg/dL (0.2-1.3); Blood Urea Nitrogen 92 mg/dL (9-20); Carbon Dioxide 34 mmol/L (22-30); Chloride 99 mmol/L (98-107); Estimated CRCL calculation 17 ml/min; Estimated Glomerular Filt Rate 24; Glucose 190 mg/dL (65-110); Potassium 4.4 mmol/L (3.4-5.0); Sodium 138 mmol/L (137-145)
[2021-04-18 11:37] LABS: Troponin I 0.673 ng/mL (0.000-0.034)
[2021-04-18 12:43] LABS: NT Pro B Type Natriuretic Pept 12600 pg/mL (5-100)
--- NOTE | 2021-04-18 12:52 | PC.NURSE ---
Spoke with MARSHALL Traylor at [place] and let her know that the plan is to admit the patient for syncopal episode.
[2021-04-18 13:08] LABS: SARS-CoV-2 RNA PCR Negative
--- NOTE | 2021-04-18 13:29 | PM.IMHP ---
H&P: HPI History of Present Illness Date/Time: 04/18/21 13:29 This is an 85 year old male patient that has a hx of chf . He is typically on o2 at 4 liters at [facility]. He had a period of unreposiveness at the rehab facility. According to the rehab facility the patient was unresponsive and had his eyes rolled back in his heqad. He was not answering any questions at that time. The staff was finally able to arouse him. The patient is a dnr .h and 101 and 30.5.chest x ray read as 1. Opacities in the bilateral mid and lower lung zones which could represent pneumonia, pulmonary edema, atelectasis or some combination thereof. 2. Cardiomegaly. Head ct read as 1. No acute intracranial process. 2. 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 3. Age-related changes including moderate diffuse on loss and extensive scattered white matter hypoattenuation consistent with chronic small vessel ischemic disease. He has a pacemaker and the son in law at the bedside stated that he recently had his pacemaker checked not that long ago and it was working well. However the son in law told me that the patient was slumped over his breakfast when the staff found him to be unresponsive. The son in law is at the bedside answering the questions for the patient as he is a poor historianTROPONIN 0.673 AND 1.780. He is being admitted to observation status on dATE OF SERVICE 04/18/21 EKG [facility] [place] [address] [phone] Electrocardiograph ReportSigned Patient: Mireya Mccullough LDOB: 1935MR#: [id number]/Sex: 85 / MAcct:[id number]: ANHED ADM Date: 04/18/21Attending Dr: Ordering Physician: Gabrielle Yuan MD Date of Service: 04/18/21 Procedure(s): [place] 12 lead EKG Accession Number(s): [id number] cc: ~ Measurements Intervals [place] Rate: 95 P: 256 SC: 212 QRS: 103 QRSD: 162 T: -71 QT: 380 QTc: 478 Interpretive Statements ELECTRONIC VENTRICULAR PACEMAKER NO FURTHER INTERPRETATION IS POSSIBLE ATYPICAL ECG Electronically Signed On 04-18-2021 10:28:50 BUSINESS OFFICE ASSISTANT by Ramón Mckinney D.O. Dictated By: Ramón Mckinney DO 04/18/21 1028 Signed By: <Electronically signed by Ramón Mckinney DO in OV> Chief Complaint: syncope Review of Systems Review of Systems: All systems reviewed & are unremarkable except as noted in HPI and below Constitutional: Constitutional: Reports as per HPI and Reports no additional constitutional complaints Eyes: Eyes: Reports as per HPI and Reports no additional eye complaints ENT: Reports system reviewed and no additional complaints, except as documented and Reports Normal hearing present Cardiovascular: Cardiovascular: Reports no additional cardiovascular complaints Respiratory: Respiratory: Reports no additional respiratory complaints and Reports no additional respiratory complaints Gastrointestinal: Gastrointestinal: Reports as per HPI and Reports no additional gastrointestinal complaints Musculoskeletal: Musculoskeletal: Reports no additional musculoskeletal complaints Integumentary/Breasts: Skin/Breast: Reports system reviewed and no additional complaints, except as docu and Reports as per HPI Neurologic: Reports system reviewed and no additional complaints, except as documented, Reports as per HPI and Reports Normal hearing present Psychiatric: Psychiatric: Reports no additional psychiatric complaints and Reports as per HPI Endocrine: Endocrine: Reports no additional endocrine complaints Hematologic/Lymphatic: Hematologic/Lymphatic: Reports no additional hematologic/lymphatic complaints Allergic/Immunologic: Allergic/Immunologic: Reports no additional allergic/immunologic compl
--- NOTE | 2021-04-18 18:44 | PC.NURSE ---
Addendum entered by Radha Kaur RN 04/18/21 18:47: MARSHALL Traylor and underwriter solicitation director assisted patient back to the stretcher and applied his oxygen via nasal cannula. Patient also pulled out his IV so MARSHALL Traylor initiated another IV. Original Note: MARSHALL Traylor to bedside to take patient to assigned inpatient room to find patient sitting in the chair. Patient was not on his oxygen or monitors.
--- NOTE | 2021-04-18 19:03 | ADMGEN ---
This patient, Mireya Mccullough, was admitted to IMU Room 201-01. Patient/family oriented to hospital policies and general routines including ID bracelet, bed and alarms, visiting hours, pain management, procedures, bathroom and other care routines, personal items, smoking policy, room service/diet, and visiting hours. Information on how to activate the Rapid Response Team has been discussed. Patient/Family are encouraged to report perceived risks to care and to ask questions if they do not understand what they are told or what they should do.
[2021-04-18] MEDS: ENOXAPARIN 80 MG/0.8 ML SYRINGE 65 MG SUB-Q (19:42)
[2021-04-18 20:11] LABS: Glucose Point of Care 152 mg/dl (65-105)
[2021-04-18] MEDS: PRIMIDONE 25 MG TABLET PO (23:42)
[2021-04-18] MEDS: MELATONIN 5 MG TABLET PO (23:42)
[2021-04-18] MEDS: traZODone HCL 50 MG TABLET 150 MG PO (23:42)
[2021-04-19] VITALS (17 sets, daily range): BP systolic 134–169; BP diastolic 61–82; PULSE 60–100; RESP 15–30; TEMP 35.5–36.4; O2SAT 94–100
--- NOTE | 2021-04-19 | ECHO_ITS ---
Patient Info Name: Mireya Mccullough Age: 85 years : 1935 Gender: Male Ht: 66 in Wt: 145 lbs BSA: 1.76 m2 HR: 95 bpm BP: 137 / 65 mmHg Heart Rhythm: Sinus Rhythm Technical Quality: Fair Exam Date: 04/19/2021 8:06 AM Exam Location: [facility] Patient Status: Inpatient Admit Date: 04/18/2021 Staff Ordering Physician: Susanna Mcdaniel NP Director Of Software Engineering: Victoria Hughes RDCS Attending Provider: Arnol Gallegos MD Referring Physician: Violeta MATHIS; Exam Type: CA echo dop color flow w con Study Info Indications - chf Complete two-dimensional, color flow and Doppler transthoracic echocardiogram is performed. Summary 1. Complete two-dimensional, color flow and Doppler transthoracic echocardiogram is performed. 2. Normal left ventricular size with moderate concentric hypertrophy. There is mild global hypokinesis, worse in the distal septum and septal apical area. Visually the ejection fraction is 45-50%. Diastolic dysfunction is present. 3. Right ventricular chamber dimension is moderately enlarged with severe hypokinesis. 4. There is flattening of the ventricular septum during diastole consistent with right ventricular volume overload. 5. Left atrial chamber dimension is severely enlarged. 6. There is mild aortic valve regurgitation. 7. There is moderate mitral valve regurgitation. 8. There is moderate tricuspid valve regurgitation. 9. Severe pulmonary hypertension, estimated pulmonary arterial systolic pressure is 67 mmHg. 10. There is mild pulmonic regurgitation. 11. Calcified aortic root. 12. Technically difficult study; IV definity contrast used. 13. Indeterminate rhythm. Left Ventricle Left ventricular chamber dimension is normal. Left ventricular systolic function is mildly reduced, estimated at 45-50%. There is moderately increased left ventricular wall thickness. Left ventricular septal wall motion is normal. The left ventricular diastolic function is abnormal. Right Ventricle Right ventricular chamber dimension is moderately enlarged with severe hypokinesis. Right ventricular systolic function is reduced. Hypokinesis present. Left Atria Left atrial chamber dimension is severely enlarged. Right Atria Right atrial chamber dimension is normal. Aortic Valve The aortic valve is trileaflet. There is mild aortic valve sclerosis. There is no aortic valve stenosis. There is mild aortic valve regurgitation. Pulmonic Valve The pulmonic valve is normal. There is no pulmonic valve stenosis. There is mild pulmonic regurgitation. Mitral Valve The mitral valve has normal leaflets. There is no mitral valve stenosis. There is moderate mitral valve regurgitation. There is mild mitral valve calcification. Tricuspid Valve The tricuspid valve leaflets are normal. There is no significant tricuspid valve stenosis. There is moderate tricuspid valve regurgitation. Severe pulmonary hypertension, estimated pulmonary arterial systolic pressure is 67 mmHg. Pericardium/Pleural The pericardium appears normal. There is no pericardial effusion. Inferior Vena Cava Not well visualized inferior vena cava with >50% collapse upon inspiration consistent with Empty right atrial pressure, 10 mmHg. Aorta The aortic root size at the sinus of Valsalva is normal. The prox ascending aorta size is normal. There is moderate aortic atherosclerosis. Left Ventricular Outflow Tract
[2021-04-19 04:29] LABS: Basophils Percent Auto 0.3 % (0.2-1.2); Hemoglobin 9.6 g/dL (14.0-18.0); Immature Granulocyte Absolute 0.02 K/mm3 (0.00-0.031); Immature Granulocyte Percent A 0.3 % (0-0.5); Lymphocytes Absolute Auto 0.27 K/mm3 (0.9-3.2); Lymphocytes Percent Auto 3.8 % (18.3-44.2); Mean Corpuscular Hemoglobin 27.5 pg (26-34); Mean Platelet Volume 11.4 fl (7.4-10.4); Monocytes Absolute Auto 0.6 K/mm3 (0.1-0.6); Monocytes Percent Auto 8.5 % (2.6-8.5); Neutrophils Absolute Auto 6.1 K/mm3 (1.3-6.7); Neutrophils Percent Auto 87.1 % (45.5-73.1); Platelet Count Result 226 k/mm3 (150-375); Red Blood Count 3.49 M/mm3 (4.6-6.20); Red Cell Distribution Width 17.7 % (11.5-14.5); White Blood Count 7.1 K/mm3 (4.5-10.0)
[2021-04-19 04:39] LABS: Alanine Aminotransferase 22 U/L (4-50); Albumin Level 3.6 g/dL (3.5-5.1); Alkaline Phosphatase 120 U/L (38-126); Anion Gap 7 mmol/L (8-16); Aspartate Amino Transferase 50 U/L (17-59); Bilirubin,Total 0.7 mg/dL (0.2-1.3); Blood Urea Nitrogen 100 mg/dL (9-20); Calcium 9.1 mg/dL (8.4-10.2); Carbon Dioxide 30 mmol/L (22-30); Chloride 101 mmol/L (98-107); Estimated CRCL calculation 16 ml/min; Estimated Glomerular Filt Rate 25; Glucose 142 mg/dL (65-110); Lactate Dehydrogenase 479 U/L (313-618); Magnesium 2.2 mg/dL (1.6-2.3); Potassium 4.5 mmol/L (3.4-5.0); Sodium 138 mmol/L (137-145)
[2021-04-19 04:40] LABS: Lactic Acid Reflex 1.3 mmol/L (0.7-2.1)
[2021-04-19 04:43] LABS: Hemoglobin A1C 6.6 % (<5.7)
[2021-04-19 05:38] LABS: Thyroid Stimulating Hormone Reflex 0.425 uIU/mL (0.465-4.68)
[2021-04-19 06:55] LABS: Free T4 Free Thyroxine Reflex 1.43 ng/dL (0.78-2.19)
[2021-04-19] MEDS: PERFLUTREN LIPID MICROSPHERES 1.5 ML VIAL DILUTED TO 10 ML TOTAL VOLUME IV PUSH (08:45)
--- NOTE | 2021-04-19 08:46 | IVDEFINITY ---
Prior to administration of IV Definity the patient was educated on the risks and benefits of the imaging enhancing agent including potential adverse side effects. The patient verbalized understanding. Allergies were verified. No exclusion criteria were identified and at least one of the following inclusion criteria were met: 1) physician request, 2) patient technically difficult to image (per the [place] [employer]chocardi[employer] guidelines of two or more segments not discernable within the apical view), or 3) questionable left ventricular function. ?
[2021-04-19] MEDS: PANTOPRAZOLE SOD SESQUIHYDRATE 20 MG TAB PO (09:07)
[2021-04-19] MEDS: PYRIDOXINE HCL 50 MG TABLET 100 MG PO (09:07)
[2021-04-19] MEDS: FOLIC ACID 1 MG TABLET PO (09:07)
[2021-04-19] MEDS: FUROSEMIDE INJ 40 MG/4 ML VIAL 20 MG IV PUSH (09:08)
[2021-04-19] MEDS: ASPIRIN 81 MG ENTERIC TABLET PO (09:08)
[2021-04-19] MEDS: LORATADINE 10 MG TABLET PO (09:08)
[2021-04-19] MEDS: ARTIFICIAL TEARS OPHTH SOLN 15 ML BOTTLE 1 DROP EACH EYE (09:08)
[2021-04-19] MEDS: MULTIVITAMINS THERAPEUTIC TAB (*BKC) 1 TABLET PO (09:08)
[2021-04-19] MEDS: PRIMIDONE 25 MG TABLET PO ×2 (09:08→20:17)
[2021-04-19 09:10] LABS: Glucose Point of Care 140 mg/dl (65-105)
--- NOTE | 2021-04-19 10:34 | PM.CNCAR ---
Assessment and Plan Assessment and plan (1) Syncope: Qualifiers: Syncope type: unspecified Qualified Code(s): R55 - Syncope and collapse Code(s): R55 - Syncope and collapse Status: Acute Assessment and Plan: Patient was admitted with an episode of unresponsiveness. SBP was intermittently in the 90's on admission I suspect he was hypotensive, as he looks dry, and pre-renal. He could have had an arrhythmia as well but we have not seen any series arrhythmias on telemetry so far. (2) Elevated troponin: Code(s): R77.8 - Other specified abnormalities of plasma proteins Status: Acute Assessment and Plan: Significantly elevated troponin in a patient with a history of CABG. No clear-cut anginal symptoms or chest pain although with the patient's dementia he may not be able to complain of chest pain. May have had a non-STEMI or nonischemic myocardial injury due to hypotension. Lovenox at renal dose is reasonable Continue aspirin Continue metoprolol if his blood pressure allows--increase as tolerated. Add atorvastatin 40 mg daily Conservative management due to the patient's chronic kidney disease, dementia, and DNR status. TNG, MSO4 prn Echo pending Daily BMP and H&H (3) Atrial fibrillation: Qualifiers: Atrial fibrillation type: paroxysmal Qualified Code(s): I48.0 - Paroxysmal atrial fibrillation Code(s): I48.91 - Unspecified atrial fibrillation Status: Acute Assessment and Plan: History of atrial fibrillation. Current rhythm is indeterminate but may be underlying atrial fibrillation and a left bundle versus paced rhythm. Supposedly the patient has a pacemaker but on his chest x-ray he does not have a typical pacemaker. He may have a leadless one but the object I see on his CXR is in not in the right ventricular apex so may be a loop recorder--though I can't palpate one. (4) Acute on chronic kidney failure: Onset Date: Unknown Qualifiers: Acute renal failure type: unspecified Chronic kidney disease stage: stage 3 (moderate) Chronic kidney disease stage 3 subtype: unspecified whether 3a or 3b Qualified Code(s): N17.9 - Acute kidney failure, unspecified; N18.30 - Chronic kidney disease, stage 3 unspecified Code(s): N17.9 - Acute kidney failure, unspecified; N18.9 - Chronic kidney disease, unspecified Status: Acute Assessment and Plan: FELICIA/CKD. Looks dry. (5) CAD (coronary artery disease): Onset Date: Unknown Qualifiers: Associated angina: angina presence unspecified Coronary Disease-Associated Artery/Lesion type: unspecified vessel or lesion type [place] vs. transplanted heart: unspecified whether [place] or transplanted heart Qualified Code(s): I25.10 - Atherosclerotic heart disease of [place] coronary artery without angina pectoris Code(s): I25.10 - Atherosclerotic heart disease of [place] coronary artery without angina pectoris Status: Acute Assessment and Plan: H/O CABG (6) Pneumonia: Qualifiers: Laterality: left Lung location: lower lobe of lung Pneumonia type: due to unspecified organism Qualified Code(s): J18.9 - Pneumonia, unspecified organism Code(s): J18.9 - Pneumonia, unspecified organism Status: Acute Assessment and Plan: Patient has left-sided infiltrates, normal white count, and elevated BNP. However he looks more dry than wet and I suspect he has pneumonia and not CHF. Recommend hydration and antibiotics DC Lasix IV History of Present Illness History of Present Illness Consult date/time: 04/19/21 10:34 Requesting physician: Susanna Mcdaniel NP Consult reason: Other (Elevated troponin) Reason For Visit: Syncope Narrative: Mireya Mccullough is an 85-year-old male who is currently residing in a rehab facility, admitted after an episode of unresponsiveness. We were asked to see him at the request o
[2021-04-19] MEDS: ALBUTEROL SULFATE (*SP) AEROSOL 1 PUFF 2 PUFF INHALATION (10:46)
[2021-04-19] MEDS: SENNOSIDES 8.6 MG TABLET PO (10:47)
[2021-04-19 12:43] LABS: Glucose Point of Care 199 mg/dl (65-105)
[2021-04-19] MEDS: ENOXAPARIN 80 MG/0.8 ML SYRINGE 65 MG SUB-Q (17:17)
[2021-04-19] MEDS: INSULIN ASPART (*BKC) 100 UNITS/ML SUB-Q (17:18)
[2021-04-19 17:21] LABS: Glucose Point of Care 226 mg/dl (65-105)
[2021-04-19 17:21] LABS: Glucose Point of Care 241 mg/dl (65-105)
--- NOTE | 2021-04-19 20:07 | PM.IMPN ---
Progress Note: A&P Assessment and Plan (1) NSTEMI (non-ST elevated myocardial infarction): Code(s): I21.4 - Non-ST elevation (NSTEMI) myocardial infarction Status: Acute Assessment and Plan: Patient was diagnosed with significantly elevated troponin. Given his history of CABG, concern for NSTEMI. None there were no cough maintained anginal symptoms or chest pain at the time of my evaluation. Patient is demented and may not be reliable historian. Hypotension could have triggered NSTEMI or nonischemic myocardial injury. Per Cardiology recommendation. Will continue Lovenox at renal dose, aspirin, metoprolol as tolerated. Will start atorvastatin. Patient will need to be treated medically. (2) Syncope: Qualifiers: Syncope type: unspecified Qualified Code(s): R55 - Syncope and collapse Code(s): R55 - Syncope and collapse Status: Acute Assessment and Plan: Patient was admitted with an episode of unresponsiveness. SBP was intermittently in the 90's on admission I suspect he was hypotensive, as he looks dry, and pre-renal. He could have had an arrhythmia as well but we have not seen any series arrhythmias on telemetry so far. (3) Elevated troponin: Code(s): R77.8 - Other specified abnormalities of plasma proteins Status: Acute Assessment and Plan: Continue to trend the troponins. Could be related to the congestive heart failure. However his last troponin was noted to be 1.780. (4) CKD (chronic kidney disease): Qualifiers: Chronic kidney disease stage: unspecified stage Qualified Code(s): N18.9 - Chronic kidney disease, unspecified Code(s): N18.9 - Chronic kidney disease, unspecified Status: Acute Assessment and Plan: Patient is at his baseline please continue to monitor. (5) Pacemaker: Code(s): Z95.0 - Presence of cardiac pacemaker Status: Chronic Assessment and Plan: According to the son-in-law the patient recently had his pacemaker interrogated. I repeated the interrogation. However according to the EKG shows at the pacemaker is working. (6) Paroxysmal A-fib: Code(s): I48.0 - Paroxysmal atrial fibrillation Status: Chronic Assessment and Plan: The patient is not on any anticoagulation. Continue with aspirin and the patient has a pacemaker. (7) Hyperlipidemia: Code(s): E78.5 - Hyperlipidemia, unspecified Status: Chronic Assessment and Plan: Continue with Simvastatin (8) Congestive heart failure (CHF): Qualifiers: Heart failure chronicity: acute on chronic Heart failure type: unspecified Qualified Code(s): I50.9 - Heart failure, unspecified Code(s): I50.9 - Heart failure, unspecified Status: Acute Assessment and Plan: I changed his dose of lasix to iv and he is on lisinopril . Last echo 03/31/20 1. Technically difficult study with limited views. 2. Left ventricular systolic function is normal, estimated at 55-60%. 3. There is hypokinesis of the mid inferoseptum and mid anteroseptum. 4. There is mildly increased left ventricular wall thickness with sigmoid hypertrophy. 5. There is no aortic valve stenosis. 6. There is mild mitral valve regurgitation. 7. There is mild tricuspid valve regurgitation. 8. Moderate pulmonary hypertension, estimated pulmonary arterial systolic pressure is 51 mmHg. (9) Acute respiratory failure: Code(s): J96.00 - Acute respiratory failure, unspecified whether with hypoxia or hypercapnia Status: Acute Assessment and Plan: The patient is chronically on 4 liters per nc (10) HTN (hypertension): Qualifiers: Hypertension type: unspecified Qualified Code(s): I10 - Essential (primary) hypertension Code(s): I10 - Essential (primary) hypertension Status: Chronic Assessment and Plan: Continue with lisinopril since his crf is stable (11) DM2 (diabetes
[2021-04-19] MEDS: MELATONIN 5 MG TABLET PO (20:17)
[2021-04-19] MEDS: traZODone HCL 50 MG TABLET 150 MG PO (20:17)
[2021-04-19 20:52] LABS: Glucose Point of Care 248 mg/dl (65-105)
[2021-04-20] VITALS (19 sets, daily range): BP systolic 117–180; BP diastolic 50–75; PULSE 60–95; RESP 18–20; TEMP 36.2–36.8; O2SAT 89–100
[2021-04-20 05:21] LABS: Hematocrit 32.4 % (42.0-52.0)
[2021-04-20 05:31] LABS: Anion Gap 9 mmol/L (8-16); Blood Urea Nitrogen 100 mg/dL (9-20); Carbon Dioxide 28 mmol/L (22-30); Chloride 95 mmol/L (98-107); Estimated CRCL calculation 16 ml/min; Estimated Glomerular Filt Rate 25; Glucose 144 mg/dL (65-110); Potassium 5.2 mmol/L (3.4-5.0); Sodium 132 mmol/L (137-145)
[2021-04-20 08:14] LABS: Glucose Point of Care 126 mg/dl (65-105)
[2021-04-20] MEDS: ALBUTEROL SULFATE (*SP) AEROSOL 1 PUFF 2 PUFF INHALATION (08:16)
--- NOTE | 2021-04-20 10:14 | PM.IMPN ---
Progress Note: A&P Assessment and Plan (1) NSTEMI (non-ST elevated myocardial infarction): Code(s): I21.4 - Non-ST elevation (NSTEMI) myocardial infarction Status: Acute Assessment and Plan: Patient was diagnosed with significantly elevated troponin. Given his history of CABG, concern for NSTEMI. None there were no cough maintained anginal symptoms or chest pain at the time of my evaluation. Patient is demented and may not be reliable historian. Hypotension could have triggered NSTEMI or nonischemic myocardial injury. Per Cardiology recommendation. Will continue Lovenox at renal dose, aspirin, metoprolol as tolerated. Will start atorvastatin. Patient will need to be treated medically. (2) Syncope: Qualifiers: Syncope type: unspecified Qualified Code(s): R55 - Syncope and collapse Code(s): R55 - Syncope and collapse Status: Acute Assessment and Plan: Patient was admitted with an episode of unresponsiveness. SBP was intermittently in the 90's on admission I suspect he was hypotensive, as he looks dry, and pre-renal. He could have had an arrhythmia as well but we have not seen any series arrhythmias on telemetry so far. (3) Elevated troponin: Code(s): R77.8 - Other specified abnormalities of plasma proteins Status: Acute Assessment and Plan: Continue to trend the troponins. Could be related to the congestive heart failure. However his last troponin was noted to be 1.780. (4) CKD (chronic kidney disease): Qualifiers: Chronic kidney disease stage: unspecified stage Qualified Code(s): N18.9 - Chronic kidney disease, unspecified Code(s): N18.9 - Chronic kidney disease, unspecified Status: Acute Assessment and Plan: Patient is at his baseline please continue to monitor. (5) Pacemaker: Code(s): Z95.0 - Presence of cardiac pacemaker Status: Chronic Assessment and Plan: According to the son-in-law the patient recently had his pacemaker interrogated. I repeated the interrogation. However according to the EKG shows at the pacemaker is working. (6) Paroxysmal A-fib: Code(s): I48.0 - Paroxysmal atrial fibrillation Status: Chronic Assessment and Plan: The patient is not on any anticoagulation. Continue with aspirin and the patient has a pacemaker. (7) Hyperlipidemia: Code(s): E78.5 - Hyperlipidemia, unspecified Status: Chronic Assessment and Plan: Continue with Simvastatin (8) Congestive heart failure (CHF): Qualifiers: Heart failure chronicity: acute on chronic Heart failure type: unspecified Qualified Code(s): I50.9 - Heart failure, unspecified Code(s): I50.9 - Heart failure, unspecified Status: Acute Assessment and Plan: Chronic systolic and diastolic CHF; This is his third hospitalization in 8 weeks. Currently he does not appear volume-overloaded. We plan to resume torsemide on discharge 2. Left ventricular systolic function is normal, estimated at 55-60%. 3. There is hypokinesis of the mid inferoseptum and mid anteroseptum. 4. There is mildly increased left ventricular wall thickness with sigmoid hypertrophy. 5. There is no aortic valve stenosis. 6. There is mild mitral valve regurgitation. 7. There is mild tricuspid valve regurgitation. 8. Moderate pulmonary hypertension, estimated pulmonary arterial systolic pressure is 51 mmHg. (9) Acute respiratory failure: Code(s): J96.00 - Acute respiratory failure, unspecified whether with hypoxia or hypercapnia Status: Acute Assessment and Plan: The patient is chronically on 4 liters per nc (10) HTN (hypertension): Qualifiers: Hypertension type: unspecified Qualified Code(s): I10 - Essential (primary) hypertension Code(s): I10 - Essential (primary) hypertension Status: Chronic Assessment and Plan: Continue with lisinopril sin
[2021-04-20] MEDS: METOPROLOL SUCCINATE EXT REL 12.5 MG TABCR PO (11:25)
[2021-04-20] MEDS: LORATADINE 10 MG TABLET PO (11:25)
[2021-04-20] MEDS: MULTIVITAMINS THERAPEUTIC TAB (*BKC) 1 TABLET PO (11:25)
[2021-04-20] MEDS: PRIMIDONE 25 MG TABLET PO ×2 (11:25→20:18)
[2021-04-20] MEDS: ASPIRIN 81 MG ENTERIC TABLET PO (11:25)
[2021-04-20] MEDS: PANTOPRAZOLE SOD SESQUIHYDRATE 20 MG TAB PO (11:26)
[2021-04-20] MEDS: ATORVASTATIN 40 MG TABLET PO (11:26)
[2021-04-20] MEDS: FOLIC ACID 1 MG TABLET PO (11:26)
[2021-04-20] MEDS: PYRIDOXINE HCL 50 MG TABLET 100 MG PO (11:26)
[2021-04-20] MEDS: SENNOSIDES 8.6 MG TABLET PO (11:29)
--- NOTE | 2021-04-20 11:41 | PM.PNCARD ---
Progress Note: A&P Assessment and Plan (1) Syncope: Qualifiers: Syncope type: unspecified Qualified Code(s): R55 - Syncope and collapse Code(s): R55 - Syncope and collapse Status: Acute Assessment and Plan: Patient was admitted with an episode of unresponsiveness. SBP was intermittently in the upper 90's - low 100's on admission I suspect he was hypotensive, as he looks dry, and pre-renal. He could have had an arrhythmia as well but we have not seen any series arrhythmias on telemetry so far. IV furosemide discontinued; holding po torsemide (resume on discharge) (2) Elevated troponin: Code(s): R77.8 - Other specified abnormalities of plasma proteins Status: Acute Assessment and Plan: Significantly elevated troponin in a patient with a history of CABG. No clear-cut anginal symptoms or chest pain although with the patient's dementia he may not be able to complain of chest pain. May have had a non-STEMI or nonischemic myocardial injury due to hypotension. Lovenox at renal dose is reasonable for 48 hours Continue aspirin Continue metoprolol if his blood pressure allows--increase as tolerated. Added atorvastatin 40 mg daily Conservative management due to the patient's chronic kidney disease, dementia, and DNR status. TNG, MSO4 prn Echo as above, mild LV dysfxn but has RV dysfxn Daily BMP and H&H (3) Atrial fibrillation: Qualifiers: Atrial fibrillation type: paroxysmal Qualified Code(s): I48.0 - Paroxysmal atrial fibrillation Code(s): I48.91 - Unspecified atrial fibrillation Status: Acute Assessment and Plan: History of atrial fibrillation. Currently in NSR. (4) Acute on chronic kidney failure: Onset Date: Unknown Qualifiers: Acute renal failure type: unspecified Chronic kidney disease stage: stage 3 (moderate) Chronic kidney disease stage 3 subtype: unspecified whether 3a or 3b Qualified Code(s): N17.9 - Acute kidney failure, unspecified; N18.30 - Chronic kidney disease, stage 3 unspecified Code(s): N17.9 - Acute kidney failure, unspecified; N18.9 - Chronic kidney disease, unspecified Status: Acute Assessment and Plan: FELICIA/CKD. BAseline GFR 25 ml/min (same here) but BUN is 100 and no edema. Looks dry. (5) CAD (coronary artery disease): Onset Date: Unknown Qualifiers: Coronary Disease-Associated Artery/Lesion type: unspecified vessel or lesion type [place] vs. transplanted heart: unspecified whether [place] or transplanted heart Associated angina: angina presence unspecified Qualified Code(s): I25.10 - Atherosclerotic heart disease of [place] coronary artery without angina pectoris Code(s): I25.10 - Atherosclerotic heart disease of [place] coronary artery without angina pectoris Status: Acute Assessment and Plan: H/O remote CABG (6) Right ventricular enlargement: Code(s): I51.7 - Cardiomegaly Status: Acute Assessment and Plan: Pt has RV enlargement and hypokinesis. Don't know if old or new, REcent hospitalizations Check D-dimer Consider VQ anaya Try to find old Echo for comparison--requesting records (7) Chronic combined systolic and diastolic CHF (congestive heart failure): Code(s): I50.42 - Chronic combined systolic (congestive) and diastolic (congestive) heart failure Status: Acute Assessment and Plan: Chronic systolic and diastolic CHF Third hospitalization in 8 weeks Does not appear volume-overloaded Resume torsemide on discharge (8) Pacemaker: Code(s): Z95.0 - Presence of cardiac pacemaker Status: Chronic Assessment and Plan: H/O leadless pacemaker, checked recently by usual lighting fixtures decorator, normal fxn. (9) Pneumonia: Qualifiers: Laterality: left Lung location: lower lobe of lung Pneumonia type: due to unspecified organism Qualified Code(s): J18.9 - Pneum
[2021-04-20 12:02] LABS: Glucose Point of Care 241 mg/dl (65-105)
[2021-04-20] MEDS: INSULIN ASPART (*BKC) 100 UNITS/ML SUB-Q (13:05)
[2021-04-20 14:18] LABS: D Dimer 3.29 ug/mL (<0.48)
[2021-04-20 16:05] LABS: Glucose Point of Care 188 mg/dl (65-105)
[2021-04-20] MEDS: ENOXAPARIN 80 MG/0.8 ML SYRINGE 65 MG SUB-Q (17:56)
[2021-04-20] MEDS: MELATONIN 5 MG TABLET PO (20:18)
[2021-04-20] MEDS: traZODone HCL 50 MG TABLET 150 MG PO (20:18)
[2021-04-20 21:08] LABS: Glucose Point of Care 167 mg/dl (65-105)
[2021-04-21] VITALS (22 sets, daily range): BP systolic 129–148; BP diastolic 47–63; PULSE 58–78; RESP 18–22; TEMP 35.7–36.6; O2SAT 94–100
--- NOTE | 2021-04-21 07:48 | P.PNIM_ITS ---
Progress Note: A&P Assessment and Plan (1) NSTEMI (non-ST elevated myocardial infarction): Code(s): I21.4 - Non-ST elevation (NSTEMI) myocardial infarction Status: Acute Assessment and Plan: Patient was diagnosed with significantly elevated troponin. Given his history of CABG, concern for NSTEMI. None there were no cough maintained anginal symptoms or chest pain at the time of my evaluation. Patient is demented and may not be reliable historian. Hypotension could have triggered NSTEMI or nonischemic myocardial injury. Per Cardiology recommendation. Will continue Lovenox at renal dose, aspirin, metoprolol as tolerated. Will start atorvastatin. Patient will need to be treated medically. Lovenox will be continued for another 24 hours. (2) Syncope: Qualifiers: Syncope type: unspecified Qualified Code(s): R55 - Syncope and collapse Code(s): R55 - Syncope and collapse Status: Acute Assessment and Plan: Patient was admitted with an episode of unresponsiveness. SBP was intermittently in the 90's on admission I suspect he was hypotensive, as he looks dry, and pre-renal. He could have had an arrhythmia as well but we have not seen any series arrhythmias on telemetry so far. (3) Elevated troponin: Code(s): R77.8 - Other specified abnormalities of plasma proteins Status: Acute Assessment and Plan: Continue to trend the troponins. Could be related to the congestive heart failure. However his last troponin was noted to be 1.780. (4) CKD (chronic kidney disease): Qualifiers: Chronic kidney disease stage: unspecified stage Qualified Code(s): N18.9 - Chronic kidney disease, unspecified Code(s): N18.9 - Chronic kidney disease, unspecified Status: Acute Assessment and Plan: Patient is at his baseline please continue to monitor. (5) Pacemaker: Code(s): Z95.0 - Presence of cardiac pacemaker Status: Chronic Assessment and Plan: According to the son-in-law the patient recently had his pacemaker interrogated. I repeated the interrogation. However according to the EKG shows at the pacemaker is working. (6) Paroxysmal A-fib: Code(s): I48.0 - Paroxysmal atrial fibrillation Status: Chronic Assessment and Plan: The patient is not on any anticoagulation. Continue with aspirin and the patient has a pacemaker. (7) Hyperlipidemia: Code(s): E78.5 - Hyperlipidemia, unspecified Status: Chronic Assessment and Plan: Continue with Simvastatin (8) Congestive heart failure (CHF): Qualifiers: Heart failure chronicity: acute on chronic Heart failure type: unspecified Qualified Code(s): I50.9 - Heart failure, unspecified Code(s): I50.9 - Heart failure, unspecified Status: Acute Assessment and Plan: Chronic systolic and diastolic CHF; This is his third hospitalization in 8 weeks. Currently he does not appear volume-overloaded. We plan to resume torsemide on discharge 2. Left ventricular systolic function is normal, estimated at 55-60%. 3. There is hypokinesis of the mid inferoseptum and mid anteroseptum. 4. There is mildly increased left ventricular wall thickness with sigmoid hypertrophy. 5. There is no aortic valve stenosis. 6. There is mild mitral valve regurgitation. 7. There is mild tricuspid valve regurgitation. 8. Moderate pulmonary hypertension, estimated pulmonary arterial systolic pressure is 51 mmHg. (9) Acute respiratory failure: Code(s): J96.00 - Acute respiratory failure, unspecified whether with hypoxia or
[2021-04-21 08:02] LABS: Glucose Point of Care 145 mg/dl (65-105)
[2021-04-21] MEDS: ARTIFICIAL TEARS OPHTH SOLN 15 ML BOTTLE 1 DROP EACH EYE (08:52)
[2021-04-21] MEDS: ATORVASTATIN 40 MG TABLET PO (08:52)
[2021-04-21] MEDS: ASPIRIN 81 MG ENTERIC TABLET PO (08:52)
[2021-04-21] MEDS: FOLIC ACID 1 MG TABLET PO (08:52)
[2021-04-21] MEDS: MULTIVITAMINS THERAPEUTIC TAB (*BKC) 1 TABLET PO (08:53)
[2021-04-21] MEDS: PYRIDOXINE HCL 50 MG TABLET 100 MG PO (08:53)
[2021-04-21] MEDS: METOPROLOL SUCCINATE EXT REL 12.5 MG TABCR PO (08:53)
[2021-04-21] MEDS: LORATADINE 10 MG TABLET PO (08:53)
[2021-04-21] MEDS: PRIMIDONE 25 MG TABLET PO ×2 (08:53→19:55)
[2021-04-21] MEDS: PANTOPRAZOLE SOD SESQUIHYDRATE 20 MG TAB PO (08:53)
--- NOTE | 2021-04-21 09:42 | PM.PNCARD ---
Progress Note: A&P Additional Plan 85-year-old woman with: Evidence of acute coronary syndrome well known history of coronary disease with previous surgical revascularization. Patient receives her care elsewhere at [facility]. Conservative strategy being pursued in this elderly lady with DNR status. I would recommend transitioning her from Lovenox to clopidogrel with aspirin since she did have an acute coronary syndrome. There is no intention to bring this lady to the cardiac catheterization lab so I would not continue anticoagulation at this time. No additional cardiac recommendations at this time. I would hope she can be discharged in the next 24-48 hours if there are no further problems. In this setting there is no plan to pursue an ischemia workup. Anton Mahmood MD [facility] Subjective Date/time seen: Date of service: 04/21/21 09:42 Interval history: Patient admitted from snf/rehab with an episode of unresponsiveness. Systolic BP occasionally was in the down to 100 mmHg. Troponins enid to 4.7. BUN 100, creatinine 2.5, proBNP 89968, Chest x-ray showed left lower lobe opacities. The patient states he does not feel well, not right in his head, some shortness of breath and intermittent lower abdominal pain. Denies any chest pain, heartburn, or nausea. The patient carries a history of CABG, AFib and pacemaker (looking at the chest x-ray I am not sure if this is a leadless pacemaker or a loop recorder). Pt is a DNR. 04/19/2021 Initial Consultation: My impression was that the patient was dry and prerenal on his syncope may have been due to borderline hypotension, r/o arrhythmia. Discontinued furosemide IV; recommend consider IV fluids. His troponin rise may have been non-STEMI or nonischemic myocardial injury due to hypotension; patient has dementia but did not complain of any chest pain. Recommended Lovenox for couple of days, continue metoprolol, added atorvastatin, nitroglycerin, and morphine prn. Date of service 04/20/2021: Patient appeared to have some transient chest pain yesterday but on my arrival to re-evaluate he was calm and denied any pain. Uneventful night. Remains on 4 L. Telemetry shows NSR with ventricular pacing, PVCs, 1 7 beat run of V-tach. Date of service 04/21/2021: Patient is comfortable just finished her breakfast to short time ago denies any cardiac symptoms. Not aware of any chest pain prior to admission but dementia may prevent her from remembering symptoms like this. Spoke to power of [place] attorney and son-in-law Donal Paredes. Patient has been in the hospital or rehab for the most part since mid February. Hospitalized twice at [facility] in [place] for CHF. Having trouble adjusting diuretics and torsemide 40 mg daily with occasionally increasing to 60 mg for weight gain seems to be optimal. CKD stage IIIB, GFR 25 mils per minute his baseline. GRACE done showed moderate mitral regurgitation but good heart function. No history of any pulmonary emboli. Does have a leadless pacemaker and remote CABG. No recent [place]. primary health organisation manager is Dr. Arnol Goldman ([facility]) and senior ui ux developer is Dr. Shankar ([facility]). Exam Narrative: Older male who looks more comfortable today, no respiratory distress, alert Const: General: comfortable, no acute distress, confusion and uncomfortable Orientation/consciousness: confusion HENMT: General nose exam: no epistaxis Mouth: Yes dry mucous membranes Eyes: EOM: EOMs intact bilaterally Neck: Neck: no JVD Thyroid: thyroid normal Lymphatic: lymphadenopathy not noted Chest: Other: Unable to palpate any loop recorder left chest Resp: Effort & Inspection: normal respiratory effort Auscultation: rales and diminished lung sounds Other: Rales 1/3 up bilaterally Cardio: Rate: regular rate Rhythm: regular rhythm Heart sounds: Murmur heart sound present (2/6 MARANDA left lower sternal border) GI: Inspection: non-distended Auscultation: n
[2021-04-21] MEDS: ALBUTEROL SULFATE (*SP) AEROSOL 1 PUFF 2 PUFF INHALATION (09:50)
[2021-04-21] MEDS: SENNOSIDES 8.6 MG TABLET PO (10:24)
[2021-04-21 14:32] LABS: Glucose Point of Care 186 mg/dl (65-105)
[2021-04-21 16:44] LABS: Glucose Point of Care 211 mg/dl (65-105)
[2021-04-21] MEDS: INSULIN ASPART (*BKC) 100 UNITS/ML SUB-Q (17:45)
[2021-04-21] MEDS: traZODone HCL 50 MG TABLET 150 MG PO (19:55)
[2021-04-21] MEDS: MELATONIN 5 MG TABLET PO (19:56)
[2021-04-21 21:27] LABS: Glucose Point of Care 203 mg/dl (65-105)
[2021-04-21 21:27] LABS: Glucose Point of Care 195 mg/dl (65-105)
[2021-04-21] MEDS: ACETAMINOPHEN 325 MG TABLET 650 MG PO (23:55)
[2021-04-22] VITALS (16 sets, daily range): BP systolic 111–141; BP diastolic 49–63; PULSE 60–80; RESP 16–32; TEMP 36.1–37; O2SAT 91–100
[2021-04-22] MEDS: LORazepam INJ (*CRX) 2 MG/ML VIAL 1 MG IV PUSH (02:19)
[2021-04-22 05:03] LABS: Hematocrit 30.7 % (42.0-52.0); Hemoglobin 10.2 g/dL (14.0-18.0); Mean Corpuscular HGB Conc 33.2 g/dl (32-36); Mean Corpuscular Volume 81.2 fl (80-100); Mean Platelet Volume 11.8 fl (7.4-10.4); Platelet Count Result 258 k/mm3 (150-375); Red Blood Count 3.78 M/mm3 (4.6-6.20); Red Cell Distribution Width 17.2 % (11.5-14.5); White Blood Count 8.2 K/mm3 (4.5-10.0)
[2021-04-22 05:26] LABS: Anion Gap 6 mmol/L (8-16); Blood Urea Nitrogen 91 mg/dL (9-20); Calcium 8.6 mg/dL (8.4-10.2); Carbon Dioxide 31 mmol/L (22-30); Chloride 91 mmol/L (98-107); Estimated CRCL calculation 16 ml/min; Estimated Glomerular Filt Rate 25; Glucose 132 mg/dL (65-110); Potassium 4.5 mmol/L (3.4-5.0); Sodium 128 mmol/L (137-145)
[2021-04-22] MEDS: ALBUTEROL SULFATE (*SP) AEROSOL 1 PUFF 2 PUFF INHALATION (08:32)
[2021-04-22 08:47] LABS: Glucose Point of Care 209 mg/dl (65-105)
[2021-04-22] MEDS: INSULIN ASPART (*BKC) 100 UNITS/ML SUB-Q ×2 (09:55→17:34)
[2021-04-22] MEDS: ASPIRIN 81 MG ENTERIC TABLET PO (09:56)
[2021-04-22] MEDS: FOLIC ACID 1 MG TABLET PO (09:56)
[2021-04-22] MEDS: PRIMIDONE 25 MG TABLET PO ×2 (09:56→20:44)
[2021-04-22] MEDS: PYRIDOXINE HCL 50 MG TABLET 100 MG PO (09:56)
[2021-04-22] MEDS: ARTIFICIAL TEARS OPHTH SOLN 15 ML BOTTLE 1 DROP EACH EYE (09:56)
[2021-04-22] MEDS: MULTIVITAMINS THERAPEUTIC TAB (*BKC) 1 TABLET PO (09:56)
[2021-04-22] MEDS: METOPROLOL SUCCINATE EXT REL 12.5 MG TABCR PO (09:56)
[2021-04-22] MEDS: PANTOPRAZOLE SOD SESQUIHYDRATE 20 MG TAB PO (09:57)
[2021-04-22] MEDS: ATORVASTATIN 40 MG TABLET PO (09:57)
[2021-04-22] MEDS: LORATADINE 10 MG TABLET PO (09:57)
[2021-04-22] MEDS: CLOPIDOGREL BISULFATE 75 MG TABLET PO (09:57)
[2021-04-22] MEDS: SENNOSIDES 8.6 MG TABLET PO (10:00)
[2021-04-22 13:14] LABS: Glucose Point of Care 195 mg/dl (65-105)
[2021-04-22] MEDS: FUROSEMIDE INJ 40 MG/4 ML VIAL 20 MG IV PUSH (13:14)
[2021-04-22] MEDS: POTASSIUM CHLORIDE 20 MEQ TABLET PO (13:14)
[2021-04-22 17:57] LABS: Glucose Point of Care 245 mg/dl (65-105)
[2021-04-22 20:57] LABS: Glucose Point of Care 123 mg/dl (65-105)
[2021-04-23] VITALS (15 sets, daily range): BP systolic 115–148; BP diastolic 51–74; PULSE 60–87; RESP 18–26; TEMP 36.3–36.8; O2SAT 92–100
[2021-04-23] MEDS: MORPHINE SULFATE (*CRX) 2 MG/ML INJ 1 MG IV PUSH (00:16)
--- NOTE | 2021-04-23 00:45 | ECG_ITS ---
Measurements Intervals [place] Rate: 63 P: AR: 0 QRS: 102 QRSD: 145 T: -56 QT: 421 QTc: 433 Interpretive Statements ELECTRONIC VENTRICULAR PACEMAKER BASELINE ARTIFACT- I, II, III, AVR, AVL, AVF, V3 NO FURTHER INTERPRETATION IS POSSIBLE ATYPICAL ECG Electronically Signed On 04-23-2021 8:40:51 [employer]CHNICIAN [employer] by Ramón Mckinney D.O.
[2021-04-23 04:18] LABS: Hematocrit 32.6 % (42.0-52.0); Hemoglobin 10.5 g/dL (14.0-18.0); Mean Corpuscular HGB Conc 32.2 g/dl (32-36); Mean Corpuscular Hemoglobin 27.2 pg (26-34); Mean Corpuscular Volume 84.5 fl (80-100); Mean Platelet Volume 10.8 fl (7.4-10.4); Platelet Count Result 233 k/mm3 (150-375); Red Blood Count 3.86 M/mm3 (4.6-6.20); Red Cell Distribution Width 17.5 % (11.5-14.5); White Blood Count 10.2 K/mm3 (4.5-10.0)
[2021-04-23 04:30] LABS: Alanine Aminotransferase 21 U/L (4-50); Albumin Level 3.6 g/dL (3.5-5.1); Alkaline Phosphatase 128 U/L (38-126); Ammonia < 9 umol/L (9-30); Anion Gap 9 mmol/L (8-16); Aspartate Amino Transferase 30 U/L (17-59); Bilirubin,Total 0.5 mg/dL (0.2-1.3); Blood Urea Nitrogen 95 mg/dL (9-20); Calcium 8.6 mg/dL (8.4-10.2); Carbon Dioxide 26 mmol/L (22-30); Chloride 93 mmol/L (98-107); Estimated CRCL calculation 16 ml/min; Estimated Glomerular Filt Rate 25; Glucose 107 mg/dL (65-110); Potassium 4.9 mmol/L (3.4-5.0); Sodium 128 mmol/L (137-145)
[2021-04-23 04:39] LABS: NT Pro B Type Natriuretic Pept 21400 pg/mL (5-100)
[2021-04-23] MEDS: ACETAMINOPHEN 325 MG TABLET 650 MG PO ×2 (04:57→13:14)
[2021-04-23 08:56] LABS: Glucose Point of Care 99 mg/dl (65-105)
[2021-04-23] MEDS: ALBUTEROL SULFATE (*SP) AEROSOL 1 PUFF 2 PUFF INHALATION (09:16)
[2021-04-23] MEDS: MULTIVITAMINS THERAPEUTIC TAB (*BKC) 1 TABLET PO (09:49)
[2021-04-23] MEDS: ATORVASTATIN 40 MG TABLET PO (09:49)
[2021-04-23] MEDS: PYRIDOXINE HCL 50 MG TABLET 100 MG PO (09:49)
[2021-04-23] MEDS: ASPIRIN 81 MG ENTERIC TABLET PO (09:49)
[2021-04-23] MEDS: PANTOPRAZOLE SOD SESQUIHYDRATE 20 MG TAB PO (09:49)
[2021-04-23] MEDS: FOLIC ACID 1 MG TABLET PO (09:49)
[2021-04-23] MEDS: PRIMIDONE 25 MG TABLET PO ×2 (09:49→21:39)
[2021-04-23] MEDS: METOPROLOL SUCCINATE EXT REL 12.5 MG TABCR PO (09:49)
[2021-04-23] MEDS: CLOPIDOGREL BISULFATE 75 MG TABLET PO (09:50)
[2021-04-23] MEDS: ARTIFICIAL TEARS OPHTH SOLN 15 ML BOTTLE 1 DROP EACH EYE (09:50)
[2021-04-23 13:11] LABS: Glucose Point of Care 209 mg/dl (65-105)
[2021-04-23] MEDS: INSULIN ASPART (*BKC) 100 UNITS/ML SUB-Q (17:52)
[2021-04-23 17:59] LABS: Glucose Point of Care 244 mg/dl (65-105)
[2021-04-23 20:09] LABS: Glucose Point of Care 190 mg/dl (65-105)
[2021-04-23] MEDS: traZODone HCL 50 MG TABLET PO (21:39)
[2021-04-24] VITALS (11 sets, daily range): BP systolic 136–153; BP diastolic 56–90; PULSE 54–81; RESP 20–28; TEMP 36.3–36.4; O2SAT 92–98
[2021-04-24] MEDS: ACETAMINOPHEN 325 MG TABLET 650 MG PO (03:26)
[2021-04-24 08:20] LABS: Glucose Point of Care 69 mg/dl (65-105)
[2021-04-24] MEDS: ALBUTEROL SULFATE (*SP) AEROSOL 1 PUFF 2 PUFF INHALATION (09:24)
[2021-04-24] MEDS: PYRIDOXINE HCL 50 MG TABLET 100 MG PO (10:37)
[2021-04-24] MEDS: MULTIVITAMINS THERAPEUTIC TAB (*BKC) 1 TABLET PO (10:37)
[2021-04-24] MEDS: ATORVASTATIN 40 MG TABLET PO (10:38)
[2021-04-24] MEDS: PRIMIDONE 25 MG TABLET PO (10:38)
[2021-04-24] MEDS: METOPROLOL SUCCINATE EXT REL 12.5 MG TABCR PO (10:38)
[2021-04-24] MEDS: ASPIRIN 81 MG ENTERIC TABLET PO (10:38)
[2021-04-24] MEDS: FOLIC ACID 1 MG TABLET PO (10:39)
[2021-04-24] MEDS: PANTOPRAZOLE SOD SESQUIHYDRATE 20 MG TAB PO (10:39)
[2021-04-24] MEDS: CLOPIDOGREL BISULFATE 75 MG TABLET PO (10:39)
[2021-04-24] MEDS: ARTIFICIAL TEARS OPHTH SOLN 15 ML BOTTLE 1 DROP EACH EYE (10:50)
[2021-04-24] MEDS: SENNOSIDES 8.6 MG TABLET PO (10:51)
[2021-04-24 11:11] LABS: EDCOVIDSCREEN Negative (Negative)
[2021-04-24 12:11] LABS: Glucose Point of Care 176 mg/dl (65-105)
--- NOTE | 2021-04-24 15:28 | PM.DS ---
DS: Admitting Diagnosis Discharge Date 04/24/2021 Admitting Diagnosis unresponsive DS: Discharge Diagnosis Discharge Diagnosis (1) NSTEMI (non-ST elevated myocardial infarction): Code(s): I21.4 - Non-ST elevation (NSTEMI) myocardial infarction Status: Acute Assessment and Plan: Patient was diagnosed with significantly elevated troponin. Given his history of CABG, concern for NSTEMI. None there were no cough maintained anginal symptoms or chest pain at the time of my evaluation. Patient is demented and may not be reliable historian. Hypotension could have triggered NSTEMI or nonischemic myocardial injury. Per Cardiology recommendation. Will continue Lovenox at renal dose, aspirin, metoprolol as tolerated. Will start atorvastatin. Patient will need to be treated medically. Lovenox will be continued for another 24 hours. (2) Syncope: Qualifiers: Syncope type: unspecified Qualified Code(s): R55 - Syncope and collapse Code(s): R55 - Syncope and collapse Status: Acute Assessment and Plan: Patient was admitted with an episode of unresponsiveness. SBP was intermittently in the 90's on admission I suspect he was hypotensive, as he looks dry, and pre-renal. He could have had an arrhythmia as well but we have not seen any series arrhythmias on telemetry so far. (3) Elevated troponin: Code(s): R77.8 - Other specified abnormalities of plasma proteins Status: Acute Assessment and Plan: Continue to trend the troponins. Could be related to the congestive heart failure. However his last troponin was noted to be 1.780. (4) CKD (chronic kidney disease): Qualifiers: Chronic kidney disease stage: unspecified stage Qualified Code(s): N18.9 - Chronic kidney disease, unspecified Code(s): N18.9 - Chronic kidney disease, unspecified Status: Acute Assessment and Plan: Patient is at his baseline please continue to monitor. (5) Pacemaker: Code(s): Z95.0 - Presence of cardiac pacemaker Status: Chronic Assessment and Plan: According to the son-in-law the patient recently had his pacemaker interrogated. I repeated the interrogation. However according to the EKG shows at the pacemaker is working. (6) Paroxysmal A-fib: Code(s): I48.0 - Paroxysmal atrial fibrillation Status: Chronic Assessment and Plan: The patient is not on any anticoagulation. Continue with aspirin and the patient has a pacemaker. (7) Hyperlipidemia: Code(s): E78.5 - Hyperlipidemia, unspecified Status: Chronic Assessment and Plan: Continue with Simvastatin (8) Congestive heart failure (CHF): Qualifiers: Heart failure chronicity: acute on chronic Heart failure type: unspecified Qualified Code(s): I50.9 - Heart failure, unspecified Code(s): I50.9 - Heart failure, unspecified Status: Acute Assessment and Plan: Chronic systolic and diastolic CHF; This is his third hospitalization in 8 weeks. Currently he does not appear volume-overloaded. We plan to resume torsemide on discharge 2. Left ventricular systolic function is normal, estimated at 55-60%. 3. There is hypokinesis of the mid inferoseptum and mid anteroseptum. 4. There is mildly increased left ventricular wall thickness with sigmoid hypertrophy. 5. There is no aortic valve stenosis. 6. There is mild mitral valve regurgitation. 7. There is mild tricuspid valve regurgitation. 8. Moderate pulmonary hypertension, estimated pulmonary arterial systolic pressure is 51 mmHg. (9) Acute respiratory failure: Code(s): J96.00 - Acute respiratory failure, unspecified whether with hypoxia or hypercapnia Status: Acute Assessment and Plan: The patient is chronically on 4 liters per nc (10) HTN (hypertension): Qualifiers: Hypertension type: unspecified Qualified Code(s): I10 - Essential (primary) hyper
== END 2021-04-24 15:54 | DRG 280 ==
LOC: ANHED 11:02 → ANHIMU 14:32
PROVIDERS: Internal Medicine; Internal Medicine Cardiovascular Disease; Nurse Practitioner; Admitting Provider Family Medicine; Emergency Provider Emergency Medicine; PCP Internal Medicine; Visit Provider Family Medicine
DX: I21.4 Non-ST elevation (NSTEMI) myocardial infarction (principal); J96.00 Acute respiratory failure, unspecified whether with hypoxia or hypercapnia; I13.0 Hypertensive heart and chronic kidney disease with heart failure and stage 1 through stage 4 chronic kidney disease, or unspecified chronic kidney disease; I50.42 Chronic combined systolic (congestive) and diastolic (congestive) heart failure; E11.22 Type 2 diabetes mellitus with diabetic chronic kidney disease; N18.32 Chronic kidney disease, stage 3b; Z20.822 Contact with and (suspected) exposure to COVID-19; R55 Syncope and collapse; R77.8 Other specified abnormalities of plasma proteins; I25.10 Atherosclerotic heart disease of native coronary artery without angina pectoris; I48.0 Paroxysmal atrial fibrillation; K21.9 Gastro-esophageal reflux disease without esophagitis; M19.049 Primary osteoarthritis, unspecified hand; M19.079 Primary osteoarthritis, unspecified ankle and foot; E78.5 Hyperlipidemia, unspecified; R79.89 Other specified abnormal findings of blood chemistry; Z66 Do not resuscitate; Z79.82 Long term (current) use of aspirin; Z79.84 Long term (current) use of oral hypoglycemic drugs; Z79.899 Other long term (current) drug therapy; Z85.038 Personal history of other malignant neoplasm of large intestine; Z95.0 Presence of cardiac pacemaker; Z95.1 Presence of aortocoronary bypass graft; Z99.81 Dependence on supplemental oxygen; Z86.73 Personal history of transient ischemic attack (TIA), and cerebral infarction without residual deficits
CPT/HCPCS: 36415; 70450; 71045; 71046; 78580; 80048; 80053; 82140; 82728; 82948; 83036; 83605; 83615; 83735; 83880; 84439; 84443; 84480; 84484; 85014; 85018; 85025; 85027; 85380; 87426; 93005; 93880; 93970; 94640; 96372; 96374; 96375; 99285; A9270; A9540; C8929; C9803; G0378; J0456; J0696; J1650; J1815; J1940; J2060; J2270; Q9957; U0003; U0005